=== PATIENT | male | born 1985 | race Hispanic/Latino ===

== ENCOUNTER 2019-10-04 21:18 | Emergency (ER) | payer SELFPAY ==
[2019-10-04 23:45] LABS: Absolute Lymphocytes (CBC) 1.6 K/uL (0.7-4.9); Basophils % 0.6 % (0-1.3); Hematocrit 35.4 % (39.6-49.0); Lymphocytes % 19.3 % (15.3-44.8); MPV 8.1 fL (7.6-11.3); RBC Red Blood Cell Count 3.69 M/uL (4.33-5.43)
[2019-10-05 00:09] LABS: ALT/SGPT 44 U/L (12-78); AST/SGOT 35 U/L (15-37); Albumin 2.8 g/dL (3.4-5.0); Alkaline Phosphatase 97 U/L (45-117); BUN Blood Urea Nitrogen 8 mg/dL (7-18); Bicarbonate 28 mmol/L (21-32); Bilirubin Direct 0.3 mg/dL (0-0.2); Glucose Level 88 mg/dL (74-106); Potassium 3.3 mmol/L (3.5-5.1); Protein, Total 7.1 g/dL (6.4-8.2); Sodium Level 138 mmol/L (136-145)
[2019-10-05 00:10] LABS: Lipase 110 U/L (73-393)
[2019-10-05] MEDS ORDERED: ACETAMINOPHEN 325 MG TABLET ONE (00:37)
[2019-10-05] MEDS ORDERED: NA CHLORIDE 0.9% 1,000 ML ONE ×2 (00:38→02:30)
[2019-10-05 01:30] LABS: Urine Blood NEGATIVE (NEG); Urine Glucose NEGATIVE (NEG); Urine Protein NEGATIVE (NEG); Urine pH 6.5 (5.0-7.0)
[2019-10-05 02:18] LABS: Protime INR 1.84
--- NOTE | 2019-10-05 02:22 | ER ---
Nurse's Notes [facility] Name: Osei Whitehead Age: 34 yrs Sex: Male : 1985 Arrival Date: 10/04/2019 Time: 21:20 Bed 20 Private MD: Diagnosis: Generalized abdominal pain;Portal vein thrombosis-extending into SMV;Fever, unspecified;Vomiting;Hypokalemia Presentation: 10/03 21:47 Chief complaint: Patient states: his sister was diagnosed with TB today pt states he bb has been feeling bad for days with abdominal pain, constipation, vomiting and this morning he woke up with a temperature. Coronavirus screen: Client presents with at least one sign or symptom that may indicate coronavirus-19. Standard/surgical mask placed on the client. Ebola Screen: No symptoms or risks identified at this time. Initial Sepsis Screen: Does the patient meet any 2 criteria? No. Patient's initial sepsis screen is negative. Does the patient have a suspected source of infection? No. Patient's initial sepsis screen is negative. Risk Assessment: Do you want to hurt yourself or someone else? Patient reports no desire to harm self or others. Onset of symptoms was September 2019. 21:47 Method Of Arrival: Ambulatory bb 21:47 Acuity: NEFTALI 3 bb Triage Assessment: 21:51 General: Appears in no apparent distress. Behavior is calm, cooperative. Pain: bb Complains of pain in abdomen Pain currently is 6 out of 10 on a pain scale. GI: Reports lower abdominal pain, constipation, vomiting. Historical: - Allergies: 21:51 No Known Allergies; bb - Home Meds: 21:51 None [Active]; bb - PMHx: 21:51 None; bb - PSHx: 21:51 ankle surgery; bb - Immunization history:: Adult Immunizations up to date. - Social history:: Smoking status: Patient denies any tobacco usage or history of. Patient uses alcohol, street drugs, marijuana, Methamphetamine (Meth). Screenin/29 00:15 Abuse screen: Denies threats or abuse. Denies injuries from another. Nutritional ls4 screening: No deficits noted. Tuberculosis screening: No symptoms or risk factors identified. Fall Risk None identified. Assessment: 00:52 Reassessment: Patient and/or family updated on plan of care and expected duration. Pain cr4 level reassessed. Patient back from CT. The patient was connected to the VS monitor and fluids. No signs of distress. VS taken.. 02:45 General: Appears in no apparent distress. uncomfortable, Behavior is calm, cooperative, vc agitated. Pain: Complains of pain in abdomen. Neuro: Level of Consciousness is awake, alert, obeys commands, Oriented to person, place, time, situation, Appropriate for age. Cardiovascular: Capillary refill < 3 seconds Patient's skin is warm and dry. Respiratory: Airway is patent Respiratory effort is even, unlabored, Respiratory pattern is regular, symmetrical. GI: Abdomen is non-distended. 02:45 Reassessment: Assumed care from RADHA Borden. vc 03:58 Reassessment: [facility] bb 04:31 Reassessment: Patient and/or family updated on plan of care and expected duration. Pain vc level reassessed. EMS at bedside to transport patient to [facility]. Vital Signs: 10/03 21:47 BP 134 / 90; Pulse 110; Resp 16 S; Temp 100.9(O); Pulse Ox 100% on R/A; Weight 93.89 kg bb (M); Height 5 ft. 8 in. (172.72 cm) (R); Pain 6/10; 10/04 01:00 BP 122 / 72; Pulse 87; Resp 18; Temp 100.3; Pulse Ox 97% ; Pain 3/10; cr4 03:57 BP 129 / 78; Pulse 83; Resp 16; Temp 98.9(O); Pulse Ox 97% on R/A; bb 10/03 21:47 Body Mass Index 31.47 (93.89 kg, 172.72 cm) bb ED Course: 10/03 21:20 Patient arrived in ED. cl3 21:51 Triage completed. bb 21:51 Arm band placed on. bb 22:20 Teena Tabares FNP-C is PHCP. kb 22:20 Aly Patel MD is Attending Physician. kb 23:30 Inserted saline lock: 20 gauge in left antecubital area, using aseptic technique. Blood oe collected. 23:50 Erin Love, RADHA is Primary Nurse. ls4 10/04 00:10 Chest Single View XRAY In Process Unspecified. EDMS 00:15 CT Abd/Pelvis - IV Contrast Only Sent. ls4 00:16 No provider procedures requiring assistance completed. ls4 00:45 CT Abd/Pelvis - IV Contrast Only In Process Unspecified. EDMS 02:03 Protime (+inr) Sent. hb1 02:03 Ptt, Activated Sent. hb1 02:40 Inserted saline lock: 18 gauge in right antecubital area, using aseptic technique. jb4 02:45 Bed in low position. Call light in reach. Side rails up X 1. playground monitor on. Pulse vc ox on. NIBP on. 02:45 Inserted saline lock: 18 gauge in right forearm, using aseptic technique. jb4 04:35 Patient transferred, IV remains in place. vc 04:48 PHCP role handed off by Teena Tabares FNP-C bb 04:48 Primary Nurse role handed off by Erin Love RN bb Administered Medications: 00:52 Drug: Ibuprofen 600 mg Route: PO; cr4 04:37 Follow up: Response: No adverse reaction vc 00:52 Drug: NS 0.9% 1000 ml Route: IV; Rate: 1000 ml; Site: left antecubital; cr4 02:45 Follow up: IV Status: Completed infusion; IV Intake: 700ml vc 02:50 Drug: Pepcid 20 mg Route: IVP; Site: right antecubital; vc 04:37 Follow up: Response: No adverse reaction vc 02:55 Drug: Cipro 400 mg Volume: 200 ml; Route: IVPB; Infused Over: 60 mins; Site: right vc forearm; 04:37 Follow up: IV Status: Completed infusion; IV Intake: 200ml vc 02:55 Drug: Flagyl 500 mg Volume: 100 ml; Route: IVPB; Rate: 200 ml/hr; Infused Over: 30 vc mins; Site: right forearm; 03:55 Follow up: IV Status: Completed infusion; IV Intake: 100ml vc 02:55 Drug: Heparin ([place] Drip) 12 units/kg/hr - (HEParin 60516 units, D5W 500 ml) vc {Co-Signature: mayda (Osei Polo RN).} Route: IV; Rate: calculated rate; Site: right antecubital; 04:36 Follow up: IV Status: Infusion continued upon transfer vc 02:55 Drug: Potassium Chloride 20 mEq Route: IV; Rate: per protocol; Site: left antecubital; vc 04:36 Follow up: IV Status: Completed infusion; IV Intake: 100ml vc 02:56 Drug: Heparin (MO-Bolus No thrombolytic) - HEParin 60 units/kg {Co-Signature: mayda lopez (Osei Polo RN).} Route: IVP; Site: right antecubital; 04:36 Follow up: Response: No adverse reaction vc 03:09 Drug: NS 0.9% 1000 ml Route: IV; Rate: 1 bolus; Site: left antecubital; vc 04:37 Follow up: IV Status: Completed infusion; IV Intake: 1000ml vc Intake: 02:45 IV: 700ml; Total: 700ml. vc 03:55 IV: 100ml; Total: 800ml. vc 04:36 IV: 100ml; Total: 900ml. vc 04:37 IV: 200ml; Total: 1100ml. vc 04:37 IV: 1000ml; Total: 2100ml. vc Outcome: 02:22 ER care complete, transfer ordered by . [facility] 03:58 Transferred by ground EMS to [facility], Transfer form completed. bb X-rays sent w/ patient. Note: report given to Malick Hassan RN for [facility] 03:58 Instructed on the need for transfer. 04:34 Condition: stable vc 04:44 Patient left the ED. vc 04:51 Patient left the ED. bb Signatures: Dispatcher [employer] EDMS Teena Tabares, TAKER OFF BRAKER MACHINE-C TAKER OFF BRAKER MACHINE-Aly Luz MD MD cha Ballard, Brenda RN RN Suha Crespo, RN RN Osei Moeller, RN RN jb4 [facility] hb1 Erin Love RN RN ls4 Modesta Bowden cl3 Hyun Lamb RN RN vc Osei [email or web address] Corrections: (The following items were deleted from the chart) 04:33 04:24 General: Appears in no apparent distress. uncomfortable, Behavior is calm, vc cooperative, agitated, vc 04:33 04:24 Pain: Complains of pain in abdomen vc vc 04:33 04:24 Neuro: Level of Consciousness is awake, alert, obeys commands, Oriented to vc person, place, time, situation, Appropriate for age vc 04:33 04:24 Cardiovascular: Capillary refill < 3 seconds Patient's skin is warm and dry. vc vc 04:24 Respiratory: Airway is patent Respiratory effort is even, unlabored, Respiratory vc pattern is regular, symmetrical, vc 04:24 GI: Abdomen is non-distended, vc vc
--- NOTE | 2019-10-05 02:22 | EDPHYS ---
Physician Documentation [facility] Name: Osei Whitehead Age: 34 yrs Sex: Male : 1985 Arrival Date: 10/04/2019 Time: 21:20 Bed 20 Private MD: ED Physician Aly Patel HPI: 10/03 23:18 This 34 yrs old Male presents to ER via Ambulatory with complaints of Vomiting.kb 23:18 The patient presents to the emergency department with nausea, vomiting, abdominal pain. kb Onset: The symptoms/episode began/occurred 1 week(s) ago. Possible causes: sick contacts. The symptoms are aggravated by nothing. The symptoms are alleviated by nothing. Associated signs and symptoms: Pertinent positives: abdominal pain, fever, nausea, vomiting. Severity of symptoms: At their worst the symptoms were moderate in the emergency department the symptoms are unchanged. The patient has not experienced similar symptoms in the past. The patient has not recently seen a physician. 23:25 Pt reports fatigue, malaise, fever, chills, abd pain, nausea and vomiting for a week. kb States his father recently and they were told he had active TB. States his sister had similar symptoms that he has so she went to her dr, they did a TB skin test and it was positive. . Historical: - Allergies: 21:51 No Known Allergies; bb - Home Meds: 21:51 None [Active]; bb - PMHx: 21:51 None; bb - PSHx: 21:51 ankle surgery; bb - Immunization history:: Adult Immunizations up to date. - Social history:: Smoking status: Patient denies any tobacco usage or history of. Patient uses alcohol, street drugs, marijuana, Methamphetamine (Meth). ROS: 23:18 ENT: Negative for injury, pain, and discharge, Neck: Negative for injury, pain, and kb swelling, Cardiovascular: Negative for chest pain, palpitations, and edema, Respiratory: Negative for shortness of breath, cough, wheezing, and pleuritic chest pain, Back: Negative for injury and pain, MS/Extremity: Negative for injury and deformity, Skin: Negative for injury, rash, and discoloration, Neuro: Negative for headache, weakness, numbness, tingling, and seizure. 23:18 Constitutional: Positive for body aches, chills, fatigue, fever, malaise. 23:18 Abdomen/GI: Positive for abdominal pain, nausea and vomiting, Negative for diarrhea, constipation. Exam: 23:18 Constitutional: This is a well developed, well nourished patient who is awake, alert, kb and in no acute distress. Head/Face: Normocephalic, atraumatic. Neck: Trachea midline, no thyromegaly or masses palpated, and no cervical lymphadenopathy. Supple, full range of motion without nuchal rigidity, or vertebral point tenderness. No Meningismus. Chest/axilla: Normal chest wall appearance and motion. Nontender with no deformity. No lesions are appreciated. Cardiovascular: Regular rate and rhythm with a normal S1 and S2. No gallops, murmurs, or rubs. Normal PMI, no JVD. No pulse deficits. Respiratory: Lungs have equal breath sounds bilaterally, clear to auscultation and percussion. No rales, rhonchi or wheezes noted. No increased work of breathing, no retractions or nasal flaring. Back: No spinal tenderness. No costovertebral tenderness. Full range of motion. Skin: Warm, dry with normal turgor. Normal color with no rashes, no lesions, and no evidence of cellulitis. MS/ Extremity: Pulses equal, no cyanosis. Neurovascular intact. Full, normal range of motion. Neuro: Awake and alert, GCS 15, oriented to person, place, time, and situation. Cranial nerves II-XII grossly intact. Motor strength 5/5 in all extremities. Sensory grossly intact. Cerebellar exam normal. Normal gait. 23:18 Abdomen/GI: Inspection: abdomen appears normal, Bowel sounds: normal, in all quadrants, Palpation: soft, in all quadrants, moderate abdominal tenderness, in all quadrants. 10/04 04:48 ECG was reviewed by the Attending Physician. [facility] Vital Signs: 10/03 21:47 BP 134 / 90; Pulse 110; Resp 16 S; Temp 100.9(O); Pulse Ox 100% on R/A; Weight 93.89 kg bb (M); Height 5 ft. 8 in. (172.72 cm) (R); Pain 6/10; 10/04 01:00 BP 122 / 72; Pulse 87; Resp 18; Temp 100.3; Pulse Ox 97% ; Pain 3/10; cr4 03:57 BP 129 / 78; Pulse 83; Resp 16; Temp 98.9(O); Pulse Ox 97% on R/A; bb 10/03 21:47 Body Mass Index 31.47 (93.89 kg, 172.72 cm) bb MDM: 10/03 22:20 Patient medically screened. kb 23:16 Data reviewed: vital signs, nurses notes. Data interpreted: Pulse oximetry: on room air kb is 100 %. Interpretation: normal. 10/04 01:37 Transition of care: After a detail discussion of the patient's case, care is kb transferred to Aly Patel MD. 02:17 Differential diagnosis: Nonspecific abd pain, gastritis, cholecystitis, pancreatitis, quentin diverticulitis, viral gastroenteritis, gastroenteritis. Test interpretation: by ED physician or midlevel provider: ECG, plain radiologic studies. Counseling: I had a detailed discussion with the patient and/or guardian regarding: the historical points, exam findings, and any diagnostic results supporting the discharge/admit diagnosis, lab results, radiology results, the need to transfer to another facility, for higher level of care, [facility] does not immediately have the required specialist. Medication response: Zofran markedly relieved the patient's nausea. Other consultation: call to [facility] md. 02:19 Response to treatment: the patient's symptoms have mildly improved after treatment. ED quentin course: plan to transfer to [facility]. 10/03 22:57 Order name: Basic Metabolic Panel; Complete Time: 00:11 kb 10/03 22:57 Order name: CBC with Diff; Complete Time: 23:52 kb 10/03 22:57 Order name: Hepatic Function; Complete Time: 00:11 kb 10/03 22:57 Order name: Lipase; Complete Time: 00:11 kb 10/04 00:20 Order name: CREATININE WHOLE BLOOD; Complete Time: 00:21 EDMS 10/04 01:18 Order name: Urine Dipstick--Ancillary (enter results); Complete Time: 01:35 tt3 10/03 22:57 Order name: Chest Single View XRAY kb 10/03 22:57 Order name: CT Abd/Pelvis - IV Contrast Only kb 10/04 01:36 Order name: Protime (+inr); Complete Time: 02:29 kb 10/04 01:36 Order name: Ptt, Activated; Complete Time: 02:29 kb 10/03 22:57 Order name: IV Saline Lock; Complete Time: 00:12 kb 10/03 22:57 Order name: Labs collected and sent; Complete Time: 00:12 kb 10/04 02:13 Order name: EKG; Complete Time: 02:13 quentin 10/04 02:13 Order name: EKG - Nurse/Tech; Complete Time: 04:00 quentin 10/04 02:14 Order name: IV Saline Lock - Large Bore; Complete Time: 02:56 [facility] EC:48 Rate is 65 beats/min. Rhythm is regular. QRS [place] is Normal. [place] interval is normal. QRS quentin interval is normal. QT interval is normal. No Q waves. T waves are Normal. No ST changes noted. Clinical impression: Normal ECG and No evidence of ischemia. Interpreted by me. Reviewed by me. Administered Medications: 00:52 Drug: Ibuprofen 600 mg Route: PO; cr4 04:37 Follow up: Response: No adverse reaction vc 00:52 Drug: NS 0.9% 1000 ml Route: IV; Rate: 1000 ml; Site: left antecubital; cr4 02:45 Follow up: IV Status: Completed infusion; IV Intake: 700ml vc 02:50 Drug: Pepcid 20 mg Route: IVP; Site: right antecubital; vc 04:37 Follow up: Response: No adverse reaction vc 02:55 Drug: Cipro 400 mg Volume: 200 ml; Route: IVPB; Infused Over: 60 mins; Site: right vc forearm; 04:37 Follow up: IV Status: Completed infusion; IV Intake: 200ml vc 02:55 Drug: Flagyl 500 mg Volume: 100 ml; Route: IVPB; Rate: 200 ml/hr; Infused Over: 30 vc mins; Site: right forearm; 03:55 Follow up: IV Status: Completed infusion; IV Intake: 100ml vc 02:55 Drug: Heparin ([place] Drip) 12 units/kg/hr - (HEParin 87339 units, D5W 500 ml) vc {Co-Signature: jb4 (Osei Polo RN).} Route: IV; Rate: calculated rate; Site: right antecubital; 04:36 Follow up: IV Status: Infusion continued upon transfer vc 02:55 Drug: Potassium Chloride 20 mEq Route: IV; Rate: per protocol; Site: left antecubital; vc 04:36 Follow up: IV Status: Completed infusion; IV Intake: 100ml vc 02:56 Drug: Heparin (SD-Bolus No thrombolytic) - HEParin 60 units/kg {Co-Signature: jb4 (Osei Polo RN).} Route: IVP; Site: right antecubital; 04:36 Follow up: Response: No adverse reaction vc 03:09 Drug: NS 0.9% 1000 ml Route: IV; Rate: 1 bolus; Site: left antecubital; vc 04:37 Follow up: IV Status: Completed infusion; IV Intake: 1000ml vc Disposition: 02:20 Co-signature as Attending Physician, Aly Patel MD I agree with the assessment and quentin plan of care. Disposition: 10/05/19 02:22 Transfer ordered to [facility]. Diagnosis are Generalized abdominal pain, Portal vein thrombosis - extending into SMV, Fever, unspecified, Vomiting, Hypokalemia. - Reason for transfer: Higher level of care. - Accepting physician is [facility]. - Condition is Fair. - Problem is new. - Symptoms have improved. Signatures: Dispatcher [employer] EDTeena Munguia, MERCHANDISE PRESENTATION ASSOCIATE-C MERCHANDISE PRESENTATION ASSOCIATE-Aly Luz MD MD cha Ballard, Brenda, RN RN bb Suha Groves, RN RN cr4 Hyun Lamb RN RN vc James Bryson RN jb4 Corrections: (The following items were deleted from the chart) 04:44 02:22 10/05/2019 02:22 Transfer ordered to [facility]. vc Diagnosis is Generalized abdominal pain; Portal vein thrombosis - extending into SMV; Fever, unspecified; Vomiting; Hypokalemia. Reason for transfer: Higher level of care. Accepting physician is [facility]. Condition is Fair. Problem is new. Symptoms have improved. quentin 04:51 04:44 10/05/2019 02:22 Transfer ordered to [facility]. bb Diagnosis is Generalized abdominal pain; Portal vein thrombosis - extending into SMV; Fever, unspecified; Vomiting; Hypokalemia. Reason for transfer: Higher level of care. Accepting physician is [facility]. Condition is Fair. Problem is new. Symptoms have improved. vc
[2019-10-05] MEDS ORDERED: HEPARIN 5000 UNIT/ML 1 ML VIAL ONE (02:30)
[2019-10-05] MEDS ORDERED: HEPARIN/D5W 25,000 UNIT/500 ML BAG IV ONE (02:31)
[2019-10-05] MEDS ORDERED: METRONIDAZOLE 500mg IVPB 500 MG/100 ML BAG IV ONE (02:31)
[2019-10-05] MEDS ORDERED: FAMOTIDINE 20 MG/2 ML VIAL IV ONE (02:31)
[2019-10-05] MEDS ORDERED: CIPROFLOXACIN 400mg IV 400 MG/200 ML BAG IV ONE (02:31)
[2019-10-05] MEDS ORDERED: KCL 20 MEQ/100 mL IVPB 20 MEQ/100 ML BAG IV ONE (02:31)
--- NOTE | 2019-10-05 05:45 | EKG ---
Test Date: 2019-10-05 Test Time: 04:02:06 Diesel Engine Ii Pipe Fitter: DAMION MEASUREMENT RESULTS: Intervals: Rate: 78 LA: 154 QRSD: 88 QT: 390 QTc: 444 Bruce: P: 5 LA: 154 QRS: 31 T: 27 INTERPRETIVE STATEMENTS: Normal sinus rhythm Normal ECG No previous ECG available for comparison Electronically Signed On 10-05-19 05:45:02 CDT by Wicho Anthony
--- NOTE | 2019-10-05 09:24 | RAD REPORT ---
EXAM DESCRIPTION: RAD - Chest Single View - 10/05/2019 12:09 am CLINICAL HISTORY: MALAISE, additional history from family member indicates recent TB diagnosis COMPARISON: None TECHNIQUE: AP portable chest image was obtained 10/05/2019 12:09 am . FINDINGS: Lung volumes are low. Overlying soft tissues accentuate chest findings. No focal mass or consolidation. No hilar mass or lymphadenopathy. No portable chest film findings for acute or chronic TB infection. Heart and vasculature are normal. No measurable pleural effusion and no pneumothorax. No acute bony abnormality seen. No acute aortic findings suspected. IMPRESSION: No acute cardiopulmonary process.
--- NOTE | 2019-10-05 15:09 | RAD REPORT ---
EXAM DESCRIPTION: CT - Abdomen Pelvis W Contrast - 10/05/2019 5:03 am ADDENDUM #1 THIS REPORT CONTAINS FINDINGS THAT MAY BE CRITICAL TO PATIENT CARE: The findings were verbally discussed via telephone conference with Dr. Aly Patel by Dr. Ray Almeida on 1:29 AM CDT .The results were acknowledged and understood. In speaking with the clinician, discussed suggestion of collateral vessels surrounding the portal vei n. The overall process may be secondary to acute on chronic thrombus and occlusion of the portal vein extending into the superior mesenteric vein and tributaries. Electronically signed by: Suzanna Almeida MD 10/05/2019 2:16 AM CDT End of Addendum EXAM DESCRIPTION: CT Abdomen and Pelvis With Intravenous Contrast CLINICAL HISTORY: The patient is 34 years old and is Male; ABD PAIN TECHNIQUE: Axial computed tomography images of the abdomen and pelvis with intravenous contrast. S agittal and coronal reformatted images were created and reviewed. This CT exam was performed using one or more of the following dose reduction techniques: automated exposure control, adjustment of t he mA and/or kV according to patient size, and/or use of iterative reconstruction technique. COMPARISON: No relevant prior studies available. FINDINGS: LUNG BASES: Unremarkable. No mass. No consolidation. ABDOMEN: LIVER: The liver is enlarged and diffusely fatty. GALLBLADDER AND BILE DUCTS: No calcified stones. No ductal dilation. PANCREAS: No ductal dilation. No mass. SPLEEN: Unremarkable. ADRENALS: Unremarkable. No mass. KIDNEYS AND URETERS: Unremarkable. The kidneys enhance symmetrically. No obstructing renal or ur eteral calculus is seen. No hydronephrosis or hydroureter. No perinephric fluid or stranding. STOMACH AND BOWEL: The stomach is minimally fluid filled. The small bowel is relatively normal i n caliber. Stool is present throughout the colon. There is no mucosal thickening or evidence of bowel obstruction. PELVIS: APPENDIX: The appendix is normal in caliber without surrounding inflammation. BLADDER: Unremarkable. No mass. REPRODUCTIVE: Unremarkable as visualized. ABDOMEN and PELVIS: INTRAPERITONEAL SPACE: Edema and inflammatory stranding within the central mesentery is present. No free air. No significant fluid collection. BONES/JOINTS: No acute fracture. SOFT TISSUES: There are small bilateral fat containing inguinal hernias. VASCULATURE: Enlargement of the portal vein and superior mesenteric vein is noted. Significant i nflammatory stranding surrounding these vessels extending into the mesenteric root areas is also pres ent. The portal vein and superior mesenteric vein are diffusely low in attenuation. The remainder of the vessels are normal in appearance. LYMPH NODES: Unremarkable. No enlarged lymph nodes. IMPRESSION: Findings suggest extensive thrombus of the portal vein, superior mesenteric vein and ext ending into the mesenteric tributaries. Surrounding edema and stranding within the mesentery is also present. Electronically signed by: Suzanna Almeida MD 10/05/2019 1:24 AM CDT Due to temporary technical issues with the PACS/Fluency reporting system, reports are being signed by the in house radiologist without review as a courtesy to ensure prompt reporting. The interpreting r adiologist is fully responsible for the content of the report.
[2019-10-08 20:26] VITALS: O2SAT 97
[2019-10-08 20:32] VITALS: BP 129/78; TEMP 98.9
== END 2019-10-05 04:51 | disposition short-term general hospital (02) ==
LOC: ER 21:18
DX: I81 Portal vein thrombosis (principal); E87.6 Hypokalemia; R50.9 Fever, unspecified; R10.84 Generalized abdominal pain
CPT/HCPCS: 36415; 71045; 74177; 80048; 80076; 81003; 82565; 83690; 85025; 85610; 85730; 93005; 99285; J0744; J1644; J3480; J7030; Q9967

== ENCOUNTER 2019-10-18 00:47 | Emergency (ER) | payer SELFPAY ==
--- OUTSIDE RECORDS SUMMARY | 2019-10-18 00:51 | XMS REPORT | Clinical Summary ---
:1985 Author Organization [facility] Address [address] [place] [address] Care Team Providers Name Role Phone Unavailable Primary Care Provider Unavailable Allergies No Known Allergies Medications Medication Sig Dispensed Refills Start Date End Date Status pantoprazole Take 1 tablet (40 90 tablet 0 10/10/2019 Active (PROTONIX) 40 MG mg total) by mouth tablet daily. rivaroxaban (XARELTO) Take 1 tablet (20 69 tablet 0 10/10/2019 Active 20 mg Tab tablet mg total) by mouth daily with dinner. rivaroxaban (XARELTO) Take 1 tablet (15 42 tablet 0 10/10/2019 Active 15 mg Tab tablet mg total) by mouth 2 (two) times daily with breakfast and dinner. Active Problems Problem Noted Date Portal vein thrombosis 10/05/2019 Encounters Date Type Specialty Care Team Description 10/17/2019 Abstract Hepatology Meeta Boggs MA 10/15/2019 Video - Cardiology Ladonna Messer, Portal vein Telemedicine [employer]OVERINGS thrombosis (Adry dejah Dx) 10/11/2019 Telephone Cardiology Ladonna Messer, Appointment [employer] 10/08/2019 Anesthesia Event Gastroenterology Anjum Mckinley MD 10/08/2019 Surgery Gastroenterology ROSEMARIE Alberto Sherrellmelody Swan, ENDOSCOPY,BIOPS Y MD 10/05/2019 Hospital Encounter General Internal [facility] [place] al vein thrombosis (Primary Dx); - Medicine Rayshawn salazar, Methamphetamine use (HCC); 10/10/2019 Alcohol abuse; Sunil, Fever in adult; Nishi Conde, Hematemesis wit h nausea; Dark stools; , Anemia, unspeci fied type; MD Will Superior mesent horace vein thrombosis (HCC); Liver mass; Hemangioma, uns pecified site after 10/17/2018 Family History Medical History Relation Name Comments Bipolar disorder Father hepatitis c Cirrhosis Father hepatitis c Drug abuse Father hepatitis c Hepatitis Father hepatitis c Hypertension Father hepatitis c Tuberculosis Father hepatitis c CAROL disease Mother Hyperlipidemia Mother Hypertension Mother Relation Name Status Comments Father hepatitis c Mother Social History Tobacco Use Types Packs/Day Years Used Date Unknown If Ever Smoked Smokeless Tobacco: Never Used Tobacco Cessation: Counseling Given: Yes Alcohol Use Drinks/Week oz/Week Comments Yes Alcohol Habits Answer Date Recorded How often do you have a drink containing alcohol? 2-3 times a week 10/05/2019 How many drinks containing alcohol do you have on a 3 or 4 10/05/2019 typical day when you are drinking? How often do you have six or more drinks on one Weekly 10/05/2019 occasion? Sex Assigned at Date Recorded Not on file Job Start Date Occupation Industry Not on file Not on file Not on file Travel History Travel Start Travel End No recent travel history available. Last Filed Vital Signs Vital Sign Reading Time Taken Blood Pressure 119/64 10/10/2019 10:37 AM CDT Pulse 64 10/10/2019 10:37 AM CDT Temperature 36.3 C (97.4 F) 10/10/2019 10:37 AM CDT Respiratory Rate 18 10/10/2019 10:37 AM CDT Oxygen Saturation 100% 10/10/2019 10:37 AM CDT Inhaled Oxygen Concentration - - Weight 93 kg (205 lb 0.4 oz) 10/15/2019 5:35 P M CDT Height 172.7 cm (5' 8") 10/15/2019 5:35 PM CDT Body Mass Index 31.17 10/15/2019 5:35 PM CDT Plan of Treatment Health Maintenance Due Date Last Done Comments PNEUMOCOCCAL VACCINE 2-64 YEARS AT RISK (1 of 1 - 05/21/1991 PPSV23) LIPID PANEL 2005 INFLUENZA VACCINE (#1) 2019 Procedures Procedure Name Priority Date/Time Associated Diagnosis Comme nts REPORT OF PROCEDURE - 10/11/2019 ENDOSCOPY SCAN 2:30 PM CDT RHYTHM STRIP - SCAN 10/11/2019 2:30 PM CDT CBC W/PLT COUNT & AUTO Routine 10/10/2019 Resul ts for DIFFERENTIAL 4:56 AM CDT this procedure are in the results section. APTT Routine 10/10/2019 Results for 4:56 AM CDT this procedure are in the results section. CBC W/PLT COUNT & AUTO Routine 10/10/2019 Resul ts for DIFFERENTIAL 4:56 AM CDT this procedure are in the results section. APTT Routine 10/09/2019 Results for 9:58 PM CDT this procedure are in the results section. TRANSFUSION SERVICE 10/09/2019 REPORT - SCAN 6:02 PM CDT APTT Routine 10/09/2019 Results for 3:01 PM CDT this procedure are in the results section. CT ABDOMEN WITH & Routine 10/09/2019 Results fo r WITHOUT IV CONTRAST 10:28 AM CDT this pro cedure are in the results section. CBC W/PLT COUNT & AUTO Routine 10/09/2019 Resul ts for DIFFERENTIAL 6:21 AM CDT this procedure are in the results section. APTT Routine 10/09/2019 Results for 6:21 AM CDT this procedure are in the results section. BASIC METABOLIC PANEL Routine 10/09/2019 Result s for (7) 6:21 AM CDT this procedure are in the results section. CBC W/PLT COUNT & AUTO Routine 10/09/2019 Resul ts for DIFFERENTIAL 6:21 AM CDT this procedure are in the results section. APTT Routine 10/09/2019 Results for 1:06 AM CDT this procedure are in the results section. APTT Routine 10/08/2019 Results for 5:49 PM CDT this procedure are in the results section. CARBOHYDRATE ANTIGEN Routine 10/08/2019 Results for 19-9 (CA 19-9) 5:49 PM CDT this procedur e are in the results section. ALPHA FETOPROTEIN Routine 10/08/2019 Results fo r (AFP), TUMOR MARKER 5:49 PM CDT this pro cedure are in the results section. CARCINOEMBRYONIC Routine 10/08/2019 Results for ANTIGEN (CEA) 5:49 PM CDT this procedure are in the results section. REPORT OF PROCEDURE - 10/08/2019 ENDOSCOPY URL 12:07 PM CDT TISSUE EXAM AP Routine 10/08/2019 Results for 11:57 AM CDT this procedure are in the results section. UPPER ENDOSCOPY,BIOPSY 10/08/2019 Gastrointestinal 9:00 AM CDT hemorrhage, unspecified gastrointestinal hemorrhage type ABORH, MANUAL STAT 10/08/2019 Results for 4:36 AM CDT this procedure are in the results section. CBC W/PLT COUNT & AUTO Routine 10/08/2019 Resul ts for DIFFERENTIAL 3:53 AM CDT this procedure are in the results section. TYPE AND SCREEN, Routine 10/08/2019 Results for AUTOMATED 3:53 AM CDT this procedure are in the results section. MITOCHONDRIAL AB TITER Routine 10/08/2019 Resul ts for 3:53 AM CDT this procedure are in the results section. MITOCHONDRIAL AB Routine 10/08/2019 Results for SCREEN 3:53 AM CDT this procedure are in the results section. PROTHROMBIN TIME/INR Routine 10/08/2019 Results for 3:53 AM CDT this procedure are in the results section. ANTI-MITOCHONDRIAL AB, Routine 10/08/2019 REFLEX TO TITER 3:53 AM CDT ACTIN (SMOOTH MUSCLE) Routine 10/08/2019 Result s for ANTIBODY, IGG 3:53 AM CDT this procedure are in the results section. ANTI-NUCLEAR ANTIBODY Routine 10/08/2019 Result s for (HERON) 3:53 AM CDT this procedure are in the results section. [id number]\\, Routine 10/08/2019 Result s for SERUM 3:53 AM CDT this procedure are in the results section. CERULOPLASMIN Routine 10/08/2019 Results for 3:53 AM CDT this procedure are in the results section. T SPOT TB Routine 10/08/2019 Results for 3:53 AM CDT this procedure are in the results section. BASIC METABOLIC PANEL Routine 10/08/2019 Result s for (7) 3:53 AM CDT this procedure are in the results section. CBC W/PLT COUNT & AUTO Routine 10/08/2019 Resul ts for DIFFERENTIAL 3:53 AM CDT this procedure are in the results section. APTT Routine 10/07/2019 Results for 8:16 PM CDT this procedure are in the results section. LIPASE Routine 10/07/2019 Results for 8:16 PM CDT this procedure are in the results section. APTT Routine 10/07/2019 Results for 4:37 PM CDT this procedure are in the results section. LACTIC ACID, VENOUS Routine 10/07/2019 Results for 4:37 PM CDT this procedure are in the results section. IRON, TIBC, % SAT. Routine 10/07/2019 Results f or (WITHOUT FERRITIN) 4:37 PM CDT this proc edure are in the results section. CT ABDOMEN/PELVIS WITH HYUN 10/07/2019 Resul ts for IV CONTRAST 1:00 PM CDT this procedure are in the results section. APTT Routine 10/07/2019 Results for 11:10 AM CDT this procedure are in the results section. CBC W/PLT COUNT & AUTO Routine 10/07/2019 Resul ts for DIFFERENTIAL 1:52 AM CDT this procedure are in the results section. BASIC METABOLIC PANEL Routine 10/07/2019 Result s for (7) 1:52 AM CDT this procedure are in the results section. CBC W/PLT COUNT & AUTO Routine 10/07/2019 Resul ts for DIFFERENTIAL 1:52 AM CDT this procedure are in the results section. APTT Routine 10/07/2019 Results for 1:51 AM CDT this procedure are in the results section. APTT Routine 10/06/2019 Results for 6:32 PM CDT this procedure are in the results section. APTT Routine 10/06/2019 Results for 12:31 PM CDT this procedure are in the results section. FERRITIN Add-On 10/06/2019 Results for 5:40 AM CDT this procedure are in the results section. APTT Routine 10/06/2019 Results for 5:40 AM CDT this procedure are in the results section. HEPATITIS A ANTIBODY, Routine 10/06/2019 Result s for IGG 5:40 AM CDT this procedure are in the results section. HEPATITIS B SURFACE Routine 10/06/2019 Results for ANTIBODY 5:40 AM CDT this procedure are in the results section. CARDIOLIPIN Routine 10/06/2019 Results for ANTIBODIES, IGG AND 5:40 AM CDT this pro cedure IGM are in the results section. BETA 2 MICROGLOBULIN Routine 10/06/2019 Results for 5:40 AM CDT this procedure are in the results section. HEPATITIS B CORE HYUN 10/06/2019 Results for ANTIBODY, TOTAL 5:40 AM CDT this procedu re are in the results section. JAK2, EXON 12 MUTATION AP Routine 10/05/2019 Resul ts for ANALYSIS 9:52 PM CDT this procedure are in the results section. APTT Routine 10/05/2019 Results for 9:50 PM CDT this procedure are in the results section. SARS-COV2/RT-PCR ([facility] Routine 10/05/2019 Resul ts for & REF LABS) 11:59 AM CDT this procedure are in the results section. URINALYSIS W/ REFLEX Routine 10/05/2019 Results for URINE CULTURE 11:49 AM CDT this procedure are in the results section. RAPID DRUG SCREEN, Routine 10/05/2019 Results f or URINE 11:49 AM CDT this procedure are in the results section. HIV-1 ANTIGEN WITH Routine 10/05/2019 Results f or HIV-1/2 ANTIBODY 10:32 AM CDT this proced ure are in the results section. HEPATITIS PANEL, ACUTE Routine 10/05/2019 Resul ts for 10:32 AM CDT this procedure are in the results section. APTT Routine 10/05/2019 Results for 10:32 AM CDT this procedure are in the results section. BLOOD CULTURE Routine 10/05/2019 Results for 10:32 AM CDT this procedure are in the results section. BLOOD CULTURE Routine 10/05/2019 Results for 10:31 AM CDT this procedure are in the results section. XR CHEST 1 VIEW Routine 10/05/2019 Results for PORTABLE/BEDSIDE 9:41 AM CDT this proced ure are in the results section. CBC W/PLT COUNT & AUTO Routine 10/05/2019 Resul ts for DIFFERENTIAL 8:09 AM CDT this procedure are in the results section. CBC W/PLT COUNT & AUTO Routine 10/05/2019 Resul ts for DIFFERENTIAL 8:09 AM CDT this procedure are in the results section. COMPREHENSIVE Routine 10/05/2019 Results for METABOLIC PANEL 8:08 AM CDT this procedu re are in the results section. PROTHROMBIN TIME/INR Routine 10/05/2019 Results for 8:08 AM CDT this procedure are in the results section. APTT Routine 10/05/2019 Results for 8:08 AM CDT this procedure are in the results section. after 10/17/2018 Results EKG-SCANNED (10/11/2019 2:30 PM CDT) Narrative Performed At This result has an attachment that is no t available. RHYTHM STRIP - SCAN (10/11/2019 2:30 PM CDT) Narrative Performed At This result has an attachment that is no t available. CBC with platelet count + automated diff (10/10/2019 4:56 AM CDT)Only the most recent of5 resultswithin the time period is included. WBC 7.5 3.5 - 10.5 K/L [facility] RBC 3.87 (L) 4.63 - 6.08 M/L [facility] Hemoglobin 12.2 (L) 13.7 - 17.5 GM/DL [facility] Hematocrit 37.9 (L) 40.1 - 51.0 % [facility] MCV 97.9 (H) 79.0 - 92.2 fL [facility] MCH 31.5 25.7 - 32.2 pg [facility] MCHC 32.2 (L) 32.3 - 36.5 GM/DL [facility] RDW 13.2 11.6 - 14.4 % [facility] Platelets 365 150 - 450 K/CU MM [facility] MPV 9.6 9.4 - 12.4 fL [facility] nRBC 0 0 - 0 /100 WBC [facility] % Neutros 53 % [facility] % Lymphs 33 % [facility] % Monos 11 % [facility] % Eos 4 % [facility] % Baso 0 % [facility] # Neutros 3.95 1.78 - 5.38 K/L [facility] # Lymphs 2.45 1.32 - 3.57 K/L [facility] # Monos 0.79 0.30 - 0.82 K/L [facility] # Eos 0.28 0.04 - 0.54 K/L [facility] # Baso 0.03 0.01 - 0.08 K/L [facility] Immature Granulocytes-Relative 0 0 - 1 % C [facility] Specimen Blood Performing Organization Address City/State/Zipcode Phone Number [facility] [address] [place] [address] CENTER aPTT (10/10/2019 4:56 AM CDT)Only the most recent of16 resultswithin the time period is included. PTT 78.6 (H) 22.5 - 36.0 seconds [facility] Specimen Blood Performing Organization Address City/State/Zipcode Phone Number [facility] [address] [place] [address] CENTER TRANSFUSION SERVICE REPORT - SCAN (10/09/2019 6:02 PM CDT) Narrative Performed At This result has an attachment that is no t available. CT abdomen without & with IV contrast (10/09/2019 10:28 AM CDT) Specimen Narrative Performed At FINAL REPORT [facility] CT of the abdomen, with and without cont rast Clinical History:Unlisted Reason for Exam liver mass - triple phase liver protocol Technique: CT of the abdomen is performe d before and after intravenous contrast administration. This exam was performed according to our departmental dose optim ization program which includes automated exposure control, adj ustment of the mA and/or kV according to patient's size and/or use o f iterative reconstructive technique. Comparison Film:October 07, 2019 Discussion: Visualized lower thorax is unremarkable. Liver is heterogeneously fatty. In segme nt 7, there is a 2.5 cm lesion that demonstrates peripheral nodu lar enhancement, and retention of contrast in the delayed pha se, most compatible with a hemangioma. Another 8 mm hemangioma is s een in segment 8 There is thrombosis of the portal vein, as well a s the splenic vein and SMV. Cavernous transformation is noted. No bi liary ductal dilatation, gallbladder is normal. 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 Spleen, pancreas, adrenal glands are nor mal. Kidneys demonstrate no hydronephrosis, r adiopaque stone, or mass. No evidence of bowel obstruction. No asc ites or adenopathy. No suspicious bony lesion is identified. Impression: Hepatic steatosis. Two enhancing liver lesions as described , most likely to represent hemangiomas. If more definitive characte rization is desired, MR correlation can be considered. Thrombosis of the portal, splenic and mcduffie perior mesenteric veins. Signed: Monty Elias MD Report Verified Date/Time:10/09/2019 14:25:15 Reading Location: [facility] C013X Ortho Con sult Reading Room Procedure Note Interface, External Ris In - 10/09/2019 2:27 PM CDT FINAL REPORT CT of the abdomen, with and without cont rast Clinical History: Unlisted Reason for E xam liver mass - triple phase liver protocol Technique: CT of the abdomen is performe d before and after intravenous contrast administration. Th is exam was performed according to our departmental dose optim ization program which includes automated exposure control, adj ustment of the mA and/or kV according to patient's size and/or use o f iterative reconstructive technique. Comparison Film: October 07, 2019 Discussion: Visualized lower thorax is unremarkable. Liver is heterogeneously fatty. In segme nt 7, there is a 2.5 cm lesion that demonstrates peripheral nodu lar enhancement, and retention of contrast in the delayed pha se, most compatible with a hemangioma. Another 8 mm hemangioma is s een in segment 8 There is thrombosis of the portal vein, as well a s the splenic vein and SMV. Cavernous transformation is noted. No bi liary ductal dilatation, gallbladder is normal. 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 Spleen, pancreas, adrenal glands are nor mal. Kidneys demonstrate no hydronephrosis, r adiopaque stone, or mass. No evidence of bowel obstruction. No asc ites or adenopathy. No suspicious bony lesion is identified. Impression: Hepatic steatosis. Two enhancing liver lesions as described , most likely to represent hemangiomas. If more definitive characte rization is desired, MR correlation can be considered. Thrombosis of the portal, splenic and mcduffie perior mesenteric veins. Signed: Monty Elias MD Report Verified Date/Time: 10/09/2019 1 4:25:15 Reading Location: [facility] C013X Ortho Con sult Reading Room Performing Organization Address City/State/Zipcode Phone Number [facility] Basic Metabolic Panel (10/09/2019 6:21 AM CDT)Only the most recent of3 results within the time period is included. Sodium 140 136 - 145 meq/L [facility] Potassium 3.5 3.5 - 5.1 meq/L [facility] Chloride 105 98 - 107 meq/L [facility] CO2 27 22 - 29 meq/L [facility] BUN 9 7 - 21 mg/dL [facility] Creatinine 0.79 0.57 - 1.25 mg/dL [facility] Glucose 102 70 - 105 mg/dL [facility] Calcium 8.7 8.4 - 10.2 mg/dL [facility] EGFR 112Comment: ESTIMATED GFR IS mL/min/1.73 sq m [facility] NOT ACCURATE CREATININE [facility] CLEARANCE IN PREDICTING GLOMERULAR FILTRATION RATE. ESTIMATED GFR IS NOT APPLICABLE FOR DIALYSIS PATIENTS. Specimen Blood Narrative Performed At Vice President Of Compliance ID - NTP [facility] Performing Organization Address City/State/Zipcode Phone Number [facility] [address] [place] [address] CENTER Carbohydrate antigen 19-9 (CA 19-9) (10/08/2019 5:49 PM CDT) CA 19-9 10 <34 U/mL [facility] Comment: This test was performed using the Siemens Chemil uminescent method. Values obtained from different assay methods can not be used interchangeably. CA19-9 levels, regardless of value, should not b e interpreted as absolute evidence of the presence or absence of disease. Specimen Blood Narrative Performed At Performing Lab [facility] [employer] [facility] [address] [place] [address] Gisella Parsons MD, PhD, AKASH Performing Organization Address City/State/Zipcode Phone Number [facility] [address] [facility] Alpha fetoprotein (AFP), tumor marker (10/08/2019 5:49 PM CDT) Alpha-Fetoprotein 2.1 <10.0 ng/mL [facility] Specimen Blood Narrative Performed At Vice President Of Compliance ID - BS [facility] Performing Organization Address [facility] Phone Number [address] [address] CENTER Carcinoembryonic Antigen (CEA) (10/08/2019 5:49 PM CDT) CEA, SERUM 2.2 0.0 - 5.0 ng/mL [facility] Specimen Blood Narrative Performed At Vice President Of Compliance ID - BS [facility] Performing Organization Address City/[facility] Phone Number [address] [address] CENTER REPORT OF PROCEDURE - ENDOSCOPY URL (10/08/2019 12:07 PM CDT) Narrative Performed At This result has an attachment that is no t available. Tissue Exam (10/08/2019 11:57 AM CDT) Case Report Surgical Pathology Report Case: [id number] [facility] Authorizing Provider:Sherrell Beck MD Collected: 10/08/2019 11:57 AM [facility] Ordering Location: [address] Received:10/08/2019 01:34 PM Service Pathologist: Dawn Mcgrath MD Specimen:Biopsy, Gas tric, random ADDENDUM This addendum is issued to robby manuel the result of immunohistochemical study for Helicobacter pylori: [facility] - NEGATIVE [facility] ER The interpretation of this c ase included the use of immunohistochemistry or special stains. HELICOBACTER PYLORI Immunohistochemistry technic al testing was performed at [facility], Pathology Laboratory where it was developed and its performance characteristics were determined. It has not be en cleared or approved by [facility] U.S. Food and Drug Administration. The FDA has determined that such clearance or approval is not necessary. The test is used for clinical purposes. It should not be regarde d as investigational or for research. This laboratory is certified under the Clinical Laboratory Improvement Amendments of 1988 (CLIA-88) as qualified to perform high complexity clinical laboratory testing. CPT CODE: 22586 DIAGNOSIS STOMACH, RANDOM, ENDOSCOPIC BIOPSY: [facility] - ANTRAL TYPE GASTRIC MUCOSA WITH REACTIVE GAS TROPATHY [facility] - OXYNTIC MUCOSA WITH MILD CHRONIC INFLAMMATIO N - NO DEFINITE HELICOBACTER PYLORI-LIKE ORGANISMS SEEN ON WARTHIN-STARRY STAIN - NO INTESTINAL METAPLASIA, DYSPLASIA OR MALIG DIMITRI NOTED - IMMUNOHISTOCHEMICAL STAI N FOR HELICOBACTER IS BEING DONE; RESULT WILL BE ISSUED IN AN ADDENDUM REPORT Signing Pathologist Direct Phone Line: CPT Code(s) 52136; [address] [facility] CLINICAL HISTORY Gastrointestinal hemorrhage [facility] SPECIMEN SOURCE stomach [facility] GROSS DESCRIPTION A. Received in formalin labeled [facility] with the patient's name, [facility] accession number and "random gastric biopsy" are two pieces of branch-white to red mucosal tissue each measuring 0.3 x 0.3 x 0.3 cm. The specimen is submitted in toto in cassette A1. NW/pl MICROSCOPIC DESCRIPTION PERFORMED [facility] SPECIAL STUDIES The interpretation of this c ase included the use of immunohistochemistry or special stains. [facility] Control Slides Examined: In -house known positive controls were evaluated along with the test tissue. These control slides run alongside of the patients sample show appropriate staining. Internal posit salbador and negative controls when available are chris baez Immunohistochemistry technic al testing was performed at [facility], Pathology Laboratory where it was developed and its performance characteristics were determined. It has not be en cleared or approved by [facility] U.S. Food and Drug Administration. The FDA has determined that such clearance or approval is not necessary. The test is used for clinical purposes. It should not be regarde d as investigational or for research. This laboratory is certified under the Clinical Laboratory Improvement Amendments of 1988 (CLIA-88) as qualified to perform high complexity clinical laboratory testing. Specimen Tissue Performing Organization Address City/State/Zipcode Phone Number [facility] [address] [place], [place] [id number] CENTER ABORH, manual (10/08/2019 4:36 AM CDT) ABO Grouping O [facility] Rh Factor POS [facility] Specimen Blood Performing Organization Address City/[facility]/Zipcode Phone Number [facility] [address] [place] [address] Mitochondrial Ab Titer (10/08/2019 3:53 AM CDT) Mitochondrial Ab Titer TNP <1:20 [facility] Comment: [facility] Test Not Performed. Screening test Negative or N ot Detected. Titer not performed. Specimen Blood Narrative Performed At Performing Lab [facility] [employer] [address] [address] [employer] [place] [address] Gisella Parsons MD, PhD, AKASH Performing Organization Address [facility] [place] Phone Number [facility] [place], [place] [address] INCORPORATED [address] Glycosan Mitochondrial Ab Screen (10/08/2019 3:53 AM CDT) Anti-Mitochond Abs NEGATIVE NEGATIVE [facility] Comment: INCORPORATED This test was developed and its analytical perfo rmance characteristics have been determined by [facility]. It has not been cleared or approved by FDA. This assay has been validated pursuant to the CLIA regulations and is used for clinical purposes. Specimen Blood Narrative Performed At Performing Lab [facility] [email or web address] EZ [address] [place] [address] Gisella Parsons MD, PhD, AKASH Performing Organization Address City/[facility] Phone Number [email or web address] [place], [place] [address] INCORPORATED [address] [address] Anti-Mitochondrial Ab, reflex to titer (10/08/2019 3:53 AM CDT) Scan Result [facility] Specimen Blood Performing Organization Address [facility]/Zipcode Phone Number [facility] [place] [address] Type and screen, automated (10/08/2019 3:53 AM CDT) ABO/RH AUTOMATED (BEAKER) O POSITIVE [facility] Ab Scrn NEGATIVE [facility] Specimen Blood Performing Organization Address City/State/Zipcode Phone Number [facility] [address] [place] [address] T Spot TB (10/08/2019 3:53 AM CDT) T-Spot TB Negative [facility] Neg Ctrl Spot Count 0 [facility] Panel A Spot 0 [facility] Panel B Spot 0 [facility] Pos Ctrl Spot Ct 0 [facility] Scan Result [facility] Specimen Blood Narrative Performed At This result has an attachment that is no t available. Performing Organization Address City/[facility]/Zipcode Phone Number [facility] [address] [place] [address] LAB[address]ATOR[address] Actin (Smooth Muscle) Antibody, IgG (10/08/2019 3:53 AM CDT) Anti-Smooth Muscle Ab 21 (H) See Note: U [facility] Comment: INCORPORATED Reference Range: <20 NEGATIVE > OR = 20 POSITIVE Antibodies recognizing actin are the main compon ent of smooth muscle antibodies associated with autoimmune liver disease. Actin antibodies are found in approximately 75% of patients with autoimmune hepatitis (AIH) type 1, approximately 65% of patients with autoimmune cholangitis, approximately 30% of patients with primary bilia ry cirrhosis, and approximately 2% of healthy peopl e. High values are closely correlated with AIH type 1. Specimen Blood Narrative Performed At Performing Lab [facility] EZ [facility] [employer] [address] [address] [address] [place] [address] I Issa LINARES, PhD, AKASH Performing Organization Address City/State/Zipcode Phone Number [facility] [place] [address] [address] [facility] [id number] (10/08/2019 3:53 AM CDT) A-1 Antitrypsin >300.00 (H) 90.00 - 200.00 mg/dL [facility] Specimen Blood Narrative Performed At Vice President Of Compliance ID - DB [facility] Performing Organization Address City/[facility] Phone Number [facility] [address] [place] [address] CENTER Ceruloplasmin (10/08/2019 3:53 AM CDT) Ceruloplasmin 44 (H) 18 - 36 mg/dL [facility] Specimen Blood Narrative Performed At Performing Lab [facility] *CAROLE [employer] [facility], [address] [place] [id number] Alisha Silveira MD, PhD Performing Organization Address City/[facility] Phone Number [facility], [place], [place] [id number] [place] [address] Prothrombin time/INR (10/08/2019 3:53 AM CDT)Only the most recent of2 results within the time period is included. Protime 17.2 (H) 11.9 - 14.2 seconds [facility] INR 1.45 <=5.90 [facility] Specimen Blood Narrative Performed At Effective 07/04/2018: PT Reference Range [facility] Change New: 11.9-14.2Previous: 11.7-14.7 RECOMMENDED COUMADIN/WARFARIN INR THERAPY RANGES STANDARD DOSE: 2.0-3.0Includes: PROPHYLAXIS for venous thrombosis, systemic embolization; TREATMENT for venous thrombosis and/or pulmonary embolus. HIGH RISK: Target INR is 2.5-3.5 for patients wiht mechanical heart valves. Performing Organization Address City/[facility]/Zipcode Phone Number [facility] [address] [place] [address] CENTER Anti-Nuclear Antibody (HERON) (10/08/2019 3:53 AM CDT) HERON Negative Negative [facility] Specimen Blood Narrative Performed At Test performed by IFA method. [facility] Test performed by IFA method. Performing Organization Address City/State/[facility] Phone Number [address] [phone] CENTER Lipase (10/07/2019 8:16 PM CDT) Lipase 33 8 - 78 U/L [facility] Specimen Blood Narrative Performed At Vice President Of Compliance ID - [facility] Performing Organization Address [facility] Phone Number [address] [address] [place] Iron, TIBC, % sat. (without ferritin) (10/07/2019 4:37 PM CDT) Iron 21.0 (L) 40.0 - 160.0 ug/dL [facility] TIBC 255 250 - 450 ug/dL [facility] Iron % Saturation 8 (L) 20 - 55 % [facility] Specimen Blood Narrative Performed At Vice President Of Compliance ID - [facility] Performing Organization Address [facility] [place] Phone Number [address] [address] [place] Lactic acid, venous (10/07/2019 4:37 PM CDT) Lactate, Venous 1.36Comment: Specimen 0.50 - 2.20 mmol/L [facility] markedly hemolyzed [facility] Specimen Blood Narrative Performed At Vice President Of Compliance ID - [facility] Performing Organization Address [facility] Phone Number [address] abdomen/pelvis with IV contrast (10/07/2019 1:00 PM CDT) Specimen Narrative Performed At FINAL REPORT [facility] TECHNIQUE: CT of the abdomen and pelvis WITH intravenous contrast and WITHOUT oral contrast. Dose modulation, iterative reconstruction, and/or weight-based adjustment of the mA /kV was utilized to reduce the radiation dose to as low as reasonab ly achievable. INDICATION: SMV thrombosis. COMPARISON: None. FINDINGS: LOWER THORAX: Trace right-sided pleural effusion.. HEPATOBILIARY: Large geographic areas of decreased attenuation throughout the liver most prominent with in segment five consistent with hepatic steatosis. 2.1 x 1.4 x 3.5 cm enhancing lesion within segment seven of the liver. (Axial image 25)... Gallbladder is unremarkable. No biliary ductal dilatati on. SPLEEN: No splenomegaly. PANCREAS: No focal masses or ductal dila tation. ADRENALS: No adrenal nodules. KIDNEYS/URETERS: No hydronephrosis, ston es, or solid mass lesions. PELVIC ORGANS/BLADDER: Unremarkable. PERITONEUM/RETROPERITONEUM: Small volume pelvic ascites. No focal fluid collection or free air.. LYMPH NODES: No lymphadenopathy. VESSELS: Extensive thrombosis of the por alfreda veins, splenic vein and and superior mesenteric vein. There is a ssociated mesenteric fat stranding. No abnormal bowel wall thicke gabrielle. There are portal vein collaterals. There are small perisplenic and perigastric collaterals. GI TRACT: No distention or wall thickeni ng. No pneumatosis. Appendix is normal. BONES AND SOFT TISSUES: Unremarkable. 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 There are pe risplenic and periportal collaterals. Geographic areas of steatosis in the hue er with indeterminate 3.5 cm enhancing lesion within segment seven of the liver. Further evaluation with liver MRI is recommended . Small volume free pelvic fluid. Trace right-sided pleural effusion. Signed: Ritesh Casas MD Report Verified Date/Time:10/07/2019 17:51:12 Reading Location: [facility] C013Y CT Body R [facility] Room Procedure Note Interface, External Ris In - 10/07/2019 5:53 PM CDT FINAL REPORT TECHNIQUE: CT of the abdomen and pelvis WITH intravenous contrast and WITHOUT oral contrast. Dose modulation, iterative reconstruction, and/or weight-based adjustment of the mA /kV was utilized to reduce the radiation dose to as low as reasonab ly achievable. INDICATION: SMV thrombosis. COMPARISON: None. FINDINGS: LOWER THORAX: Trace right-sided pleural effusion.. HEPATOBILIARY: Large geographic areas of decreased attenuation throughout the liver most prominent with in segment five consistent with hepatic steatosis. 2.1 x 1.4 x 3.5 cm enhancing lesion within segment seven of the liver. (Axial image 25)... Gallbladder is unremarkable. No biliary ductal dilatati on. SPLEEN: No splenomegaly. PANCREAS: No focal masses or ductal dila tation. ADRENALS: No adrenal nodules. KIDNEYS/URETERS: No hydronephrosis, ston es, or solid mass lesions. PELVIC ORGANS/BLADDER: Unremarkable. PERITONEUM/RETROPERITONEUM: Small volume pelvic ascites. No focal fluid collection or free air.. LYMPH NODES: No lymphadenopathy. VESSELS: Extensive thrombosis of the por alfreda veins, splenic vein and and superior mesenteric vein. There is a ssociated mesenteric fat stranding. No abnormal bowel wall thicke gabrielle. There are portal vein collaterals. There are small perisplenic and perigastric collaterals. GI TRACT: No distention or wall thickeni ng. No pneumatosis. Appendix is normal. BONES AND SOFT TISSUES: Unremarkable. 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 There are pe risplenic and periportal collaterals. Geographic areas of steatosis in the hue er with indeterminate 3.5 cm enhancing lesion within segment seven of the liver. Further evaluation with liver MRI is recommended . Small volume free pelvic fluid. Trace right-sided pleural effusion. Signed: Ritesh Casas MD Report Verified Date/Time: 10/07/2019 1 7:51:12 Reading Location: [facility] C013Y CT Body R [facility] Room Performing Organization Address City/State/Zipcode Phone Number RIS Hepatitis A antibody, IgG (10/06/2019 5:40 AM CDT) Hep A IgG Reactive (A) Nonreactive [facility] Specimen Blood Narrative Performed At Vice President Of Compliance ID - PIAYA L [facility] Performing Organization Address City/State/Zipcode Phone Number [facility] [address] [place] [address] CENTER Hepatitis B core antibody, total (10/06/2019 5:40 AM CDT) Hep B Core Total Ab Nonreactive Nonreactive [facility] Specimen Blood Narrative Performed At Vice President Of Compliance ID - MIRI L [facility] Performing Organization Address City/[facility] Phone Number [address] [address] CENTER Hepatitis B surface antibody (10/06/2019 5:40 AM CDT) Hep B S Ab <8.0 <8.0 mIU/mL [facility] Specimen Blood Narrative Performed At Vice President Of Compliance ID - PICARINA L [facility] Performing Organization Address [facility] Phone Number [address] [address] CENTER Cardiolipin Antibodies, IgG and IgM (10/06/2019 5:40 AM CDT) Anticardiolipin IgG <1.6 <20.0 GPL [facility] Anticardiolipin IgM 0.3 <20.0 MPL [facility] Specimen Blood Narrative Performed At Anticardiolipin IgG Result Interpretatio n: [facility] <20.0 GPL Normal >/= 20.0 GPL Positive Anticardiolipin IgM Result Interpretatio n: <20.0 MPL Normal >/= 20.0 MPL Positive Performing Organization Address City/[facility] Phone Number [address] [address] CENTER Ferritin (10/06/2019 5:40 AM CDT) Ferritin 410.84 (H) 5.00 - 275.00 ng/mL [facility] Specimen Blood Narrative Performed At Vice President Of Compliance ID - BS [facility] Performing Organization Address City/[facility] Phone Number [address] [address] CENTER Beta 2 microglobulin (10/06/2019 5:40 AM CDT) B2 Microglobulin, 1.80 < OR = 2.51 [facility] Serum Comment: mg/L INCORPORATED This test was performed using the Daniels Immunot urbidimetric method. Values obtained from different assay methods cannot be used interchangeably. Beta-2 Microglobulin levels, regardless of value, shoul d not be interpreted as absolute evidence of the presence or absence of disease. Specimen Blood Narrative Performed At Performing Lab [facility] [address] [place] [address] I Issa LINARES, PhD, AKASH Performing Organization Address City/State/Zipcode Phone Number [facility], [place], [place] [address] [facility] JAK2, EXON 12 MUTATION ANALYSIS (10/05/2019 9:52 PM CDT) Jak2 Exon 12 Mutations NOT DETECTED NOT DETECTED [facility] CLINICAL INDICATION NOT GIVEN [facility] ([facility]) INC[facility]PORATED SPECIMEN SOURCE: LAV TOP WB [facility] Block/Specimen ID NOT GIVEN [facility] GENE DNR [facility] AMINO ACID DNR [facility] Mutation Analysis DNR [facility] MUTATIONS/POLYMORPHISMS DNR [facility] Exons 10,11,13-16 DNR [facility] NUCLEOTIDE CHANGE DNR [facility] REFERENCE ID ([facility]) DNR [facility] INTERPRETATION ([facility]) SEE BELOW [facility] Comment: INCORPORATED No mutation is detected in exon 12 of JAK2. Inse rtions up to 30bp and deletions up to 52bp have been successfully dete cted by the assay. This data was reviewed and interpreted by Chavez hernandez Ma, PhD. HCLD(ABB) ASSAY DETAILS SEE BELOW [facility] Comment: INCORPORATED This PCR-based advanced sequencing assay interro handy DNA from leukocytes for the presence of mutations in exon 12 of JAK2. Th e sensitivity of mutation detection is approximately 5% but may vary depen ding on the particular mutation type. Insertions up to 30bp and deletio ns up to 52bp have been successfully detected by the assay. Alterations outside of the tested areas of this gene will not be detected. Synonymous or known non-synonymous polymorphic changes (SNPs) are not reported. JAELYN 2 exon 12 mutations are associated with myeloproliferative neoplasms (MP Ns), specifically polycythemia vera (PV). Results of this assay sh ould be correlated with morphology and other laboratory testing for elba l diagnosis and classification. If this test is negative, additi onal testing that may be useful for workup of MPNs, depending on presenti ng hematologic features, includes BCR-ABL1 rearrangement (test code 59251 or 86157L) or mutational analysis of JAK2 V617F (PV/essential thrombocyth emia (ET)/primary myelofibrosis (PMF), [address]7786), CALR (ET/PMF, [address]1397 ), MPL (ET/PMF, 611[address]) or CSF3R (chronic neutrophilic leukemia, [address]). Re sidual material from this sample may be used except for BCR-ABL1 testing; call lab to add. DNA was aligned to GRCh37(hg19) for analysis and transcript ID [id number] was used as reference for JAK2 s equence. For additional information, please refer to http://education.Gravy.Guardium/faq/CCC996 (This link is being provided for informational/e ducational purposes only.) This test was developed and its analytical perfo rmance characteristics have been determined by [facility]. It has not been cleared or approved by FDA. This assay has been validated pursuant to the CLIA regulations and is used for clinical purposes. Specimen Blood - Whole Blood Narrative Performed At Performing Lab [facility] [address] [address] [place] [address] Gisella Parsons MD, PhD, AKASH Performing Organization Address City/State/Zipcode Phone Number [email or web address] [place], [place] [address] INCORPORATED [address] [address] [facility] SARS-CoV2/RT-PCR (Symptomatic ONLY) (10/05/2019 11:59 AM CDT) SARS-COV2/RT-PCR Negative Not Detected, Negative, [facility] See external report for MEDICAL CENTER linked test SARS-COV-2 PERFORMING LAB [facility] ROSCOE [facility] Specimen Other Narrative Performed At Negative result for this test determines that [facility] SARS-CoV-2 RNA was not present in the specimen above the Limit of Detection (LOD).However, Negative results do not preclude SARS-CoV-2 infection and should not be used as the sole basis for treatment or patient management decisions. Negative results must be combined with clinical observations, patient history, and epidemiological information. A false negative result may occur if a specimen is improperly collected, transported or handled.A false negative result should be considered if patient's recent exposures or clinical presentation indicate that COVID-19 (SARS-CoV-2) is likely and diagnostic tests for other causes of illness are negative.Re-testing should be considered in cases of suspected false negatives. The limit of detection for this assay is 800 copies/mL. This SARS CoV-2 test is a real-time RT-PCR test intended for the qualitative detection of nucleic acid from SARS-CoV-2 in a nasopharyngeal swab specimen collected from individuals suspected of COVID-19 by their healthcare provider. This test has not been Food and Drug Administration (FDA) cleared or approved.This is a modified version of an approved Emergency Use Authorization (EUA) and is in the process of review by the FDA. Once authorized by the FDA, the issued EUA will be effective until the declaration that circumstances exist justifying the authorization of the emergency use of in vitro diagnostic tests for detection and/or diagnosis of COVID-19 is terminated under Section 564(b)(2) of the Act or the EUA is revoked under Section 564(g) of the Act. Fact Sheet for Healthcare Providers: https://www.Freshdesk.com/sites/default/files/pro duct/documents/Fact_Sheet_HC_Providers_Lyra_SA RS-CoV-2.pdf Fact Sheet for Healthcare Patients: https://www.Freshdesk.com/sites/default/files/pro duct/documents/Fact_Sheet_Patients_Lyra_SARS-C oV-2.pdf Performing Laboratory: [address] [place] [address] Performing Organization Address City/State/Zipcode Phone Number [address] [address] CENTER Urinalysis w/Microscopic + Reflex to Culture (10/05/2019 11:49 AM CDT) Color, UA Yellow [facility] Clarity, UA Clear [facility] Specific [place], UA 1.016 1.001 - 1.035 [facility] pH, UA 7.0 5.0 - 8.[address] [facility] Protein, UA Negative Negative [facility] Glucose, UA Negative Negative [facility] Ketones, UA 60 mg/dL (A) Negative [facility] Bilirubin, UA Negative Negative [facility] Blood, UA Negative Negative [facility] Nitrite, UA Negative Negative [facility] Leukocytes, UA Negative Negative [facility] Urobilinogen, UA 2.0 (H) 0.2 - 1.0 mg/dL [facility] RBC, UA <1 /HPF [facility] WBC, UA 1 /HPF [facility] Mucus Rare [facility] Specimen Source [facility] Specimen Urine Narrative Performed At Vice President Of Compliance ID - [auto] [facility] Vice President Of Compliance ID - tech Performing Organization Address City/State/Zipcode Phone Number [facility] [address] [place] [address] CENTER Rapid drug screen, urine (10/05/2019 11:49 AM CDT) Barbiturate Screen Negative Negative [facility] Benzodiazepine Screen Negative Negative [facility] Cocaine (Metab.) Screen Negative Negative [facility]3] L [facility] Methadone Screen [facility] Negative [facility] Opiate Screen Negative Negative [facility] Cannabinoid Screen Positive (A) Negative [facility] Amph/Methamph Screen Negative Negative [facility] Phencyclidine Screen Negative Negative [facility] pH, UA 7.0 5.0 - 8.0 [facility] Specimen Urine Narrative Performed At [facility] CONC. Cocaine 300 ng/mL Wdkwtbetyfz26 ng /mL Fjcmderjxenkes962 ng/mL Barbiturate 200 ng/m L Cymbyiygaexis39 ng/m L Qrcvof552 ng/mL Methadone 300 ng /mL Amphetamine/ 1000 ng/mL Methamphetamine This assay provides an unconfirmed qualitative test result for the clinical management of patients in emergency situations. Chain of custody not maintained. Some lnyx-ebh-kclvyrg medications, as well as adulterants, may cause inaccurate results. Clinical correlation should be applied. A more comprehensive drug screen or confirmation of a detected drug may be performed upon request. Vice President Of Compliance ID - JENNYFER C Performing Organization Address City/[facility]/Zipcode Phone Number [address] [address] CENTER HIV-1 Antigen with HIV-1/2 Antibody (10/05/2019 10:32 AM CDT) HIV-1 Antigen with HIV 1&2 Nonreactive Nonreactive [facility] Specimen Blood Narrative Performed At Vice President Of Compliance ID - JENNYFER C [facility] Performing Organization Address City/[facility]/Zipcode Phone Number [address] [address] CENTER Hepatitis panel, acute (10/05/2019 10:32 AM CDT) Hep A IgM Nonreactive Nonreactive [facility] Hep B C IgM Nonreactive Nonreactive [facility] Hepatitis C Ab Nonreactive Nonreactive [facility] HBsAg Screen Nonreactive Nonreactive [facility] Specimen Blood Narrative Performed At Vice President Of Compliance ID - JENNYFER C [facility] Performing Organization Address [facility]/Zipcode Phone Number [facility] [address] [place] [address] CENTER Blood Culture - Routine (Right Venipuncture) (10/05/2019 10:32 AM CDT)Only the most recent of2 resultswithin the time period is included. Result No growth in 5 days [facility] Specimen Blood Performing Organization Address [facility] Phone Number [facility] [address] [place] [address] CENTER XR chest 1 view portable / bedside (10/05/2019 9:41 AM CDT) Specimen Narrative Performed At FINAL REPORT [facility] History: TB exposure. FINDINGS: Abdomen, single view: Single AP view of the abdomen shows a no rmal appearing heart and mediastinum. No mediastinal or hilar melchor nopathy is present. Lungs are clear, free of edema, focal consolidatio n or visible effusions. No pneumothorax. Bones are unremarkable. IMPRESSION: 1. Negative for acute cardiopulmonary di sease. Signed: Anamaria Erickson MD Report Verified Date/Time:10/05/2019 10:09:02 Reading Location: [address] [facility] Reading Room Procedure Note Interface, External Ris In - 10/05/2019 10:11 AM CDT FINAL REPORT History: TB exposure. FINDINGS: Abdomen, single view: Single AP view of the abdomen shows a no rmal appearing heart and mediastinum. No mediastinal or hilar melchor nopathy is present. Lungs are clear, free of edema, focal consolidatio n or visible effusions. No pneumothorax. Bones are unremarkable. IMPRESSION: 1. Negative for acute cardiopulmonary di sease. Signed: Anamaria Erickson MD Report Verified Date/Time: 10/05/2019 1 0:09:02 Reading Location: [facility] Reading Room Performing Organization Address City/State/Zipcode Phone Number GE RIS Comprehensive metabolic panel (10/05/2019 8:08 AM CDT) Protein, Total 6.2 6.0 - 8.3 gm/dL [facility] Albumin 3.2 (L) 3.5 - 5.0 g/dL [facility] Alkaline Phosphatase 79 40 - 150 U/L [facility] Total Bilirubin 1.1 0.2 - 1.2 mg/dL [facility] Sodium 137 136 - 145 meq/L [facility] Potassium 3.2 (L) 3.5 - 5.1 meq/L [facility] Chloride 104 98 - 107 meq/L [facility] CO2 24 22 - 29 meq/L [facility] BUN 6 (L) 7 - 21 mg/dL [facility] Creatinine 0.69 0.57 - 1.25 mg/dL [facility] Glucose 88 70 - 105 mg/dL [facility] Calcium 7.8 (L) 8.4 - 10.2 mg/dL [facility] AST 27 5 - 34 U/L [facility] ALT 29 6 - 55 U/L [facility] EGFR 131Comment: ESTIMATED mL/min/1.73 sq m [facility] GFR IS NOT ACCURATE [facility] CREATININE CLEARANCE IN PREDICTING GLOMERULAR FILTRATION RATE. ESTIMATED GFR IS NOT APPLICABLE FOR DIALYSIS PATIENTS. Specimen Blood Narrative Performed At Vice President Of Compliance ID - JENNYFER Isabel [facility] Performing Organization Address City/State/Zipcode Phone Number [facility] [address] [place] [address] CENTER after 10/17/2018 Insurance Payer Benefit Plan / Group Subscriber ID Type Phone A ddress CDC REVIEW CDC REVIEW xxxxxxxx [address] [place], [place] [phone] Advance Directives For more information, please contact:[address] [place]ksRing[place], [place] [phone] Code Status Date Activated Date Inactivated Comments Full Code 10/05/2019 6:35 AM 10/10/2019 6:30 PM This code status was determined by: Patient
--- OUTSIDE RECORDS SUMMARY | 2019-10-18 00:53 | XMS REPORT | Continuity of Care Document ---
:1985 Author Organization [facility] t Address [address] [place] [address] Care Team Providers Name Role Phone Meeta Boggs MA Attending Clinician Unavailable Gui CRUMP, Ladonna Attending Clinician RAYSHAWN WILKINS Attending Clinician Unavailable Rayshawn Wilkins MD Attending Clinician [phone] Sunil LINARES, Nishi Conde Attending Clinician Merchant LINARES Attending Clinician Iban Mckinley MD Attending Clinician Sosa Alberto MD Attending Clinician Admitting Clinician Unavailable Payers Payer Name Policy Type Policy Number Effective Date Expiration Date S filemon [facility] REVIEW[facility] xxxxxxxx [facility] [id number] Center Problems Condition Condition Condition Status Onset Resolution Last Treating Co mments Source Name Details Category Date Date Treatment Clinician Date 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 Family History Family Member Diagnosis Comments Start Date Stop Date Source Natural father Bipolar disorder [facility] Natural father Cirrhosis [facility] Natural father Drug abuse [facility] Natural father Hepatitis [facility] Natural father Hypertension [facility] Natural father Tuberculosis [facility] Natural mother CAROL disease [facility] Natural mother Hyperlipidemia [facility] Natural mother Hypertension [facility] Social History Social Habit Start Date Stop Date Quantity Comments Source Sex Assigned [facility] History [facility] Alcohol 2019-10-05 2019-10-[address] [facility] - Frequency 00:00:00 00:00:00 Medical Center History [facility] Alcohol 2019-10-05 2019-10-[address] [facility] - Std Drinks 00:00:00 00:00:00 [facility] History [facility] Alcohol 2019-10-05 2019-10-[address] [facility] - Binge 00:00:00 00:00:00 [facility] Medications Ordered Filled Start Stop Current Ordering Indication Dosage Frequency Signature Comments Components Source Medication Medication Date Date Medication? Clinician (SIG) Name Name pantoprazol 2019-0 Yes 40mg QD Take 1 [facility] e 9-03 tablet (40 [facility] - (PROTONIX) 00:00: mg total) Me dical 40 MG 00 by mouth Center tablet daily. rivaroxaban 2020-0 Yes 20mg Take 1 [facility] (XARELTO) 9-03 tablet (20 [facility] - 20 mg Tab 00:00: mg total) Med ical tablet 00 by mouth Center daily with dinner. rivaroxaban 2020-0 Yes 15mg Take 1 [facility] (XARELTO) 9-03 tablet (15 [facility] - 15 mg Tab 00:00: mg total) Med ical tablet 00 by mouth 2 Center (two) times daily with breakfast and dinner. Vital Signs Vital Name Observation Time Observation Value Comments Source Body height 2019-10-15 17:35:00 172.7 cm [facility] Body weight Measured 2019-10-15 17:35:00 93 kg [facility] BMI 2019-10-15 17:35:00 31.17 kg/m2 [facility] Systolic blood 2019-10-10 10:37:00 119 mm[Hg] [facility] Diastolic blood 2019-10-10 10:37:00 64 mm[Hg] [facility] Heart rate 2019-10-10 10:37:00 64 /min [facility] Body temperature 2019-10-10 10:37:00 36.33 Carito [facility] Respiratory rate 2019-10-10 10:37:00 18 /min [facility] Oxygen saturation in 2019-10-10 10:37:00 100 /min [facility] Arterial blood by Medical Ce nter Pulse oximetry Procedures Procedure Date / Time Performing Clinician Source Performed REPORT OF PROCEDURE - 2019-10-11 14:30:23 Provider, Default [facility] ENDOSCOPY SCAN [facility] RHYTHM STRIP - SCAN 2019-10-11 14:30:14 Provider, Default [facility] APTT 2019-10[facility]10 [facility]T [facility] & AUTO 2019-10-10 04:56:00 Will Canada [facility] APTT 2019-10-09 [facility]:58[facility] 2019-10-09 18:02:53 Provider, Default [facility] - - SCAN [facility] APTT 2019-10-09 15:01:00 Nishi Barber [facility] CT ABDOMEN WITH & WITHOUT 2019-10-09 10:28:00 Heidi Odell [facility] CONTRAST [facility] BASIC METABOLIC PANEL (7) 2019-10-09 06:21:00 Will Canada CH, I [facility] APTT 2019-10-09 06:21[facility] W/PLT COUNT & AUTO 2019-10-09 06:21:00 Will Canada [facility] S t [facility] APTT 2019-10-09 01:06:00 Will Canada [facility] CARCINOEMBRYONIC ANTIGEN 2019-10-08 17:49:[address] [facility] - (CEA) [facility] ALPHA FETOPROTEIN (AFP), 2019-10-08 17:49:[address] [facility] - TUMOR MARKER [facility] CARBOHYDRATE ANTIGEN 19-9 2019-10-08 17:49:00 Alisha Wright [facility] (CA 19-9) [facility] APTT 2019-10-08 17:49:00 Nishi Barber [facility] REPORT OF PROCEDURE - 2019-10-08 12:07:26 Sherrell Alberto [facility] ENDOSCOPY [facility] TISSUE EXAM 2019-10-08 11:57:00 Sheikh [facility] UPPER ENDOSCOPY,BIOPSY 2019-10-08 09:00:00 Sherrell Alberto [facility] ABORH, MANUAL 2019-10-08 04:36:00 Monica Rodriguez [facility] BASIC METABOLIC PANEL (7) 2019-10-08 03:53:00 Will Canada CH [facility] T SPOT TB 2019-10-08 03:53:00 Shubham Mcmanus [facility] CERULOPLASMIN 2019-10-08 03:53:00 Reza Ballard [facility] [id number]\\, SERUM 2019-10-08 03:53:00 Reza Ballard [facility] ANTI-NUCLEAR ANTIBODY (HERON) 2019-10-08 03:53:00 Reza Ballard [facility] ACTIN (SMOOTH MUSCLE) 2019-10-08 03:53:[address] [facility] - ANTIBODY, IGG [facility] ANTI-MITOCHONDRIAL AB, 2019-10-08 03:53:00 Reza Ballard [facility] REFLEX TO TITER [facility] PROTHROMBIN TIME/INR 2019-10-08 03:53:00 Will Canada [facility] MITOCHONDRIAL AB SCREEN 2019-10-08 03:53:00 Reza Ballard [facility] MITOCHONDRIAL AB TITER 2019-10-08 03:53:00 Reza Ballard CH [facility] TYPE AND SCREEN, AUTOMATED 2019-10-08 03:53:00 Will Canada [facility] CBC W/PLT COUNT & AUTO 2019-10-08 03:53:00 Will Canada [facility] S [facility] DIFFERENTIAL [facility] LIPASE 2019-10-07 20:16:00 LatiaphillyHarrison barclay [facility] APTT 2019-10-07 20:16:00 Nishi Barber [facility] IRON, TIBC, % SAT. (WITHOUT 2019-10-07 16:37:[address] [facility] - FERRITIN) [facility] LACTIC ACID, VENOUS 2019-10-07 16:37:00 YonathanShubham [facility] APTT 2019-10-07 16:37:00 Nihsi Barber [facility] CT ABDOMEN/PELVIS WITH IV 2019-10-07 13:00:[address] [facility] CONTRAST [facility] APTT 2019-10-07 11:10:00 Nishi Barber [facility] BASIC METABOLIC PANEL (7) 2019-10-07 01:52:00 Will Canada [facility] CBC W/PLT COUNT & AUTO 2019-10-07 01:52:00 Merchant Will [facility] S [facility] APTT 2019-10-07 01:51:00 Nishi Barber [facility] APTT 2019-10-06 18:32:00 Nishi Barber [facility] APTT 2019-10-06 12:31:00 Nishi Barber [facility] HEPATITIS B CORE ANTIBODY, 2019-10-06 05:40:[address] [facility] - TOTAL [facility] BETA 2 MICROGLOBULIN 2019-10-06 05:40:00 Laurence Gonzalez [facility] CARDIOLIPIN ANTIBODIES, IGG 2019-10-06 05:40:[address] [facility] - AND IGM [facility] HEPATITIS B SURFACE 2019-10-06 05:40:00 Kathy Samaniego [facility] - ANTIBODY [facility] HEPATITIS A ANTIBODY, IGG 2019-10-06 05:40:00 Kathy Samaniego [facility] APTT 2019-10-06 05:40:00 Nishi Barber [facility] FERRITIN 2019-10-06 05:40:00 Reza Ballard [facility] JAK2, EXON 12 MUTATION 2019-10-05 21:52:00 Laurence Gonzalez [facility] APTT 2019-10-05 21:50:00 Nishi Barber [facility] SARS-COV2/RT-PCR ([facility] & 2019-10-05 11:59:00 Nishi Barber [facility]) [facility] RAPID DRUG SCREEN, URINE 2019-10-05 11:49:00 Nishi Barber [facility] URINALYSIS W/ REFLEX URINE 2019-10-05 11:49:00 Nishi Barber [facility] BLOOD CULTURE 2019-10-05 10:32:00 Nishi Barber [facility] APTT 2019-10-05 10:32:00 Claudette [facility] HEPATITIS PANEL, ACUTE 2019-10-05 10:32:00 Nishi Barber CH I [facility] HIV-1 ANTIGEN WITH HIV-1/2 2019-10-05 10:32:[address] [facility] BLOOD CULTURE 2019-10-05 10:31:00 Nishi Barber [facility] XR CHEST 1 VIEW 2019-10-05 09:41:00 Nishi Barber [facility]/BEDSIDE [facility] CBC W/PLT COUNT & AUTO 2019-10-05 08:09:00 KASHMIR Wilkins [facility] APTT 2019-10-05 08:08:00 Claudette [facility] PROTHROMBIN TIME/INR 2019-10-05 08:08:00 ElizabethDerrek [facility] COMPREHENSIVE METABOLIC 2019-10-05 08:08:00 [facility] Planned Activity Planned Date Details Comments Source Future Scheduled 2019-10-08 INFLUENZA VACCINE (#1) [facility] 00:[facility]:00 [code = INFLUENZA Medical Ce nter VACCINE (#1)] Future Scheduled 2005 [facility] (procedure) [code = Medical Center 32336613] Future Scheduled 1991-05-21 [facility]INE [facility]:00 2-64 YEARS AT RISK (1 [facility] of 1 - PPSV23) [code = PNEUMOCOCCAL VACCINE 2-64 YEARS AT RISK (1 of 1 - PPSV23)] Results Test Description Test Time Test Comments Results Result Comments Source JAK2, EXON 12 MUTATION ANALYSIS 2019-10-12 19:45:00 Test Item Value Reference Range Interpretation Comme nts Jak2 Exon 12 NOT DETECTED NOT DETECTED Mutations (test code = 8053589) CLINICAL INDICATION NOT GIVEN ([facility]) (test code = 3792070) SPECIMEN SOURCE: LAV TOP WB (test code = 4104699) Block/Specimen ID NOT GIVEN (test code = 6222113) GENE (test code = DNR 1738316) AMINO ACID (test code DNR = 6608156) Mutation Analysis DNR (test code = 0651833) MUTATIONS/POLYMORPHIS DNR MS (test code = 1696564) Exons 10,11,13-16 DNR (test code = 3845342) NUCLEOTIDE CHANGE DNR (test code = 1511525) REFERENCE ID (QUEST) DNR (test code = 0892143) INTERPRETATION SEE BELOW No mutation is detected in (QUEST) (test code = exon 12 of JAK2. Insertions up ) to 30bp and del etions up to 52bp have been successfully detected by the assay. This data was review ed and interpreted by Mo Quinones, PhD. GAVIN(ABB) ASSAY DETAILS (test SEE BELOW This PCR -based advanced code = 8189392) sequencing a ssay interrogates DNA from leukoc ytes forthe presence of mut ations in exon 12 of JAK2. The sensitivity of mutationdetecti on is approximately 5 % but may vary depending on th e particularmutat ion type. Insertions up t o 30bp and deletions up to 52bp have beensuccessfull y detected by the assay. Alte rations outside of the tested a reasof this gene will not be det ected. Synonymous or k nown non-synonymousp olymorphic changes (SNPs) are not reported. JAK2 exon 12 mutations areas sociated with myeloproliferat salbador neoplasms (MPNs), specificallypol ycythemia vera (PV). Results o f this assay should be corre lated withmorphology and other laboratory test ing for final diagnosis andcl assification. If this test is ne gative, additional test ing that may beuseful for wo rkup of MPNs, depending on pr esenting hematologic fea tures,includes BCR-ABL1 rearra ngement (test code 70311 or 1 0350X) or mutationalanaly sis of JAK2 V617F (PV/essen tial thrombocythemia (ET)/primarymye lofibrosis (PMF), 12717), CALR (ET/PMF, 91955), MPL (ET /PMF, 23656) sqIMV8F (chroni c neutrophilic leukemia, 19031 ). Residual material from t hissample may be used except for BCR-ABL1 testing; call l ab to add. DNA was aligned to GRCh37(hg19) for analysis and tr anscript [id number] was used as reference for J AK2 sequence. For additional information, please refer [email or web address]/FA Q211(This link is being provid ed for informational/e ducational purposes only.) This test was developed and i ts analytical performance quentin racteristics havebeen determ ined by [facility] Bridgett sales.It has not been cleared or approved by FDA. This assay has been validatedpursua nt to the CLIA regulations and is used for clinical purpos es. MADAI (test code = MADAI) Performing Lab EZ [facility] [address] [place] [address] Gisella Parsnos MD, PhD, AKASH [facility] 19-9 (CA 19-9)2019-10-11 14:51:00 Test Item Value Reference Range Interpretation Comments CA 19-9 10 U/mL <34 This test was (test code = performed using the 33379-0) Siemens Chemiluminescen t method.Values o btained from different assay methods cannot be used interchangeably .CA19-9 levels, regardl ess of value, should n ot be interpreted as absoluteevidenc e of the presence or abs ence of disease. MADAI (test Performing Lab code = MADAI) [employer] [facility] [address] [place] [address] Gisella Parsons MD, PhD, AKASH [facility] [id number] 09:33:00 Test Item Value Reference Range Interpretation Comments T-Spot TB (test code = 15833-3) Negative Neg Ctrl Spot Count (test code = 0 98339-4) Panel A Spot (test code = 55593-7) 0 Panel B Spot (test code = 17470-8) [address] (test code = 0 81659-9) Scan Result (test code = 5903253) [facility] [id number] 09:33:00 Test Item Value Reference Range Interpretation Comments T-SPOT TB (BEAKER) (test code = Negative 1683) NEG CONTROL SPOT COUNT (BEAKER) 0 (test code = 1684) PANEL A SPOT (BEAKER) (test code = 0 1685) PANEL B SPOT (BEAKER) (test code = 0 1686) POS CONTROL SPOT CT (BEAKER) (test 0 code = 1687) SCAN RESULT (test code = 7362438) ANTI-MITOCHONDRIAL AB, REFLEX TO [id number] 09:21:00 Test Item Value Reference Range Interpretation Comments SCAN RESULT (test code = 5656325) Anti-Mitochondrial Ab, reflex to [id number] 09:21:00Scan ResultQUEST DIAGNOSTIC INCORPORATEDSummit CampusActin (Smooth Muscle) Antibody, [id number] 22:58:00 Test Item Value Reference Interpretation Comments Range Anti-Smooth Muscle 21 U See Note: H Reference Range:<20 Ab (test code = NEGATI VE> OR ) = 20 POSITIVE Antibodies recognizing act in are the main componentof smo oth muscle antibodi es associated withautoimmune liver disease. Actin antibodie s arefound in approximately 7 5% of patients withautoimmune hepatitis (AIH) type 1, awvonmnrjvvwy32 % of patients with autoimmune cholangitis,sumit luz mately 30% of patients with primary biliarycirrhosi s, and approximate ly 2% of healthy people.High hali ues are closely correlated with AIH type 1. MADAI (test code = Performing Lab MADAI) [facility] [employer] [facility] [address] [place] [address] Gisella Parsons MD, PhD, AKASH Lab Interpretation Abnormal (test code = 64428-8) [facility] [id number] 18:55:00 Test Item Value Reference Range Interpretation Comments Case Report (test code Surgical Pathology = 104) Report Case: [id number] Authorizing Provider: Sherrell Alberto MD Collected: 10/08/2019 11:57 AM Ordering Location: [address] Received: 10/08/2019 01:34 PM Service Pathologist: Dawn Mcgrath MD Specimen: Biopsy, Gastric, random ADDENDUM (test code = [id number] 3381) ZaTEEvd4fnBXEuuTRkOiWi MzNcZnRuYmpcdWMxXGRlZm Oen5zub874oDJpd2wrHHQz TmQ8vIYkJYSmoHRmE586RT WtVHgkq6fmu4DnUADakUMz x3S1KYYyoxzlpMb1sHapT9 2na0Z9DhbwG9ccTGOvGRhv DMHiCIgmeKCnIAT5GNNvBV Z5POdlsvTzsyQ7KFxaoFLj ToI5BGn8v2svaDxoZCGeSW P5e1dvQQyrvyAbQO9vbq7q zKw8i0bzmvAvQBPoLSNjoL VWWFVtU7CeyDhbQn4vnGw1 cQbwMiqmSDH2Ief5BA6rej 23yfn7iXgqXLMvqwdrHuU9 QDndMZYhksaqDOz4AKbnAM TlpNC3MRFrhMMfO8UoMMCg AV4yley4FXP8ILmoXEBwUb M7ZRGueKJxJMBjcUsbKVcs n779NJI3OkZgBJ5fW8Kgn3 G2dM8nsPMaVJJpoIAmIvXs LOVdzy3duIQdKUnbb7AyJO A3irR1hCCtlENmDZRtZH64 Xhspl4LjWdxtPVW5KXFjpx Xuf6Mme3uvOqQkxwVjB4ne M6VxAONaCSLqLOQrQtNxpl Wuq4Tyh9VpdCThlDt4f1yb MJMiMTQreGfxm8qzLZK1KC BnZ1X9iOHzv4vnHYriTNXa aJG8ipO4VKQapHHsX1UbpH 4fMORuKS8fzjd4r2rfYSI3 FUoqLKHdKzP7dhU1FGXflT AcMOYlwVnbRYacy304YNQ5 JnZgDIJbr4RjH5CrgWoeO1 6keLbnA46oVEQhvYqixK0f qJnonK4tQwNgMiMeTHkgtQ QeIXFmlVuxfYrtkJ1yJrCw ZnMyMFxwbGFpblxmMVxmcz TpKRXgvUFdLBSuZH9qnU0k aXMgaXNzdWVkIHRvIHJlcG 9msPI8jYGjgtQybEi9RQ8z YYhhzLRqw2sgt3HrD9xjeK fhYOaym2X9FIoxWx2iWCuh eZnsl6GqN5QuglCesKipgi m0HYHmmvFhQQ5MG9FTDLKX XHBhclxwbGFpblxmMVxmcz IwXHUxNjAgXCdhMFxwbGFp blxmMVxmczIwXHBhciBUaG GkwX20SSSdyyV2MEViy61x o3ShzLaqnfEqSZDmPJghC6 s5OOVmHTRvKXP5f4Unl2Ai aM6kxY5baJyvcQ6xnVEjnO A7rtlmi6Ghj0AkL2awgURz dGFpbnMuXHBhclxwbGFpbl xmMVxmczIwXHUxNjAgXCdh MFxwbGFpblxmMVxmczIwIE yABPyBJ0TYC2PLGfLIYNeN UctcwKZwVKbycTMfy8ije6 OmK6imiDsanWB6UDSsQ4bq iAUzvKW7MGD1eR7kTMzldo UxIRMrv2LoDCZiQUTeSnK8 sI0cRPF0GxTIwAutDLKiMC luXGYwXGZzMjBcdTgyMTcg PCp6UvblmZTqinogIHrtka VkQKOcVVJyeICmeVAXUH90 PJWdWSNcmKppvC6sdWIFTU KrvcF6y9D4EIvaRZYhYAj7 FHzvtfHgRJZueO0lXRElOE 3uXRc9zrNtGSIgx7JlPB9e DRKkjVRlXZL5QFVrq8YlA7 Qhe9WhPCXmAIQbuh1kuaUp SzCNfPUbLECgfi38RTAcEJ 0tJ5goHSSgTMBbpkOfnHDl b4MzNPCdqBE5jSTtLD9YKp IYq37rRBQsFENGzfCkSPJx uEeafMA5rlR2pA5hHlMVfI RhJiLXDMpzzdArMFRtgf0f qeHfPBHuZMOaw7CxbYYroN YwlpSdT9Zgc3EbSUPxwp93 JUetxDYbdh26LI3eJ7Ydl3 HgtK3pWHemEYEud7ThiHNm eNKlXDAkx0QlR0eygccmWQ rwsCKffB1kORRtDEc7QTBv b2RyJITei4EsCeTsdmDwOA TgFTVgBZFbzO37OYY3nExi hPdghuCbOZ3jMXQhaoGjNQ UiAFBmhJ2uFJggmbMhVPGu stN5t4K9YWbmJUIyqmDzHi xjZNB9nhGedyK2hVLoM2sn vmqkCJckSMZyq9WvzE2lwN QNwFZld4OamOOfiHYKoKEs FB1mkmDlHZ8oTSD4SWypZA REBUSaFQzaZXBzXLE3VNqx LtomOJS8jkJrCRGsb1VgCW atG7daD13auJeepBh4yWKl lRujsHWrpRXpIEPawaL0g0 Q5SVRhs7ThlrkgUNKciipr bGFpblxmMVxmczIwXHUxNj AgXCdhMFxwbGFpblxmMVxm blLvFTToduMTLIAdT93ARV ogODgzNDJccGFyXHBsYWlu WNSnKBGbYkEpmVI4JTRwY3 EwXHBsYWluXGYxXGZzMjBc cGFyfQ== DIAGNOSIS (test code = b0xjsCReEJXck8aeLLAvkM 3220) FuZzEwMzNcZnRuYmpcdWMx HUpvfvLsTAgnr1EwV8EzGh AwMFxhbnNpXGRlZmxhbmcx URVsLGW8coKiNPOfQPxoPR BxNOxyJt2qhWGmmIphWwFk IAOeg1cyavPSzazagXr3o8 lnSKWtGfT4wAVrJNmwM1ch xvLqoKJyNQFlVIq1hH23DS GhlP1quHXoPDbjsaHaGuQ6 UOysLAEoQeE2RSQpeHRcLB KrL2vaYRLxJYnoDBCbAKkg iHVvYPC9hZyya1J8hPRwgU MjmXnqAjFxXlFrFJCNw4Eu GAe0bFvxH6KmMWXzYiI7yN QgUGFyYWdyYXBoIEZvbnQ7 wR89IHpysyR1tYLpr1Drn6 6cp034fF5eeDXlGKC0UJTf RMQwxTQsQVIwRIG9GQVfhZ PjM2r1XvJzeREfD5K7OrGi qHKxC6I4XmKdjGSgE0L9Xm WabLJgEFFgjZUyYl0naWLj iPLnuq7ohc54AQY2t5XrpA vjORW2JSY9InPzFz9ebADh MMQvIM0sPgXowQZpFMIiiy 44cQgcKEfpfcDtxZ1qPzIp GNSivSRiAIXxLT3wlQQcTX JkfH8nnkdlNGLsAlPyinze HAFxsLsdkuBxHa6yzZujWW H8YLqkP5qxdL8zYyP7OImb C5ivdF8cHTo1WEuojQB0KF OvbV0bMU7yzfcor4fnXbGf ZA8rrgtkp7dwPsWqIH8per c2r4vzVeDqBQ9trmgzq9ub NzIwXGhlYWRlcnkwXGZvb3 TmiswcRPYkn3TeE1UuyXle Y54raRfeI83fZGEguTioxQ 7cnGnvlB9uQfDxNfIdLDeo bFxwbGFpblxmMVxmczIwXG rxbunyDNEvEYudU2jsWiCq FZZsgTngNFhzw1YfYOWrKR AoPfUaL3FVJLUBONqbGoYU HK3MYAZYTtZHE4VUABjQFG OZN5IDFCsgdGDzQUVhUJFI TlRSQUwgVFlQRSBHQVNUUk cKLN3CR22SIRXCGNEPWXAJ CKHGLKWZXTpHF1DDV6PCHB pNGKMxgsTpAK9zI1tNLeYO OeGSRTRJH1BhS6vICCVNDK sRZPLCLa2UEPScEJ4SADZV RKXFVV7XOIUfdsNhSV4iGi 5vFCQUMM1KXBInWOFDAGOZ QkXCJDVQJLWSKC2KRO0YXE tCFE1WU4EJCDDZVyVBLQYE HK8JNTkBBmEXKZ2zL4ARNn YSCWBTOPaJUAHuouDeIB2v Sh9aKW7YQPEYWP5MCKRFJZ NTCVgRN3tDDGGHVREQOVLT RYBvG4ZpDNKAKUbEKJ4WFS GWM0FWWLtiNZAqMOVsDDiM BOZKG7bQF4BKI8qZJHjLRT faG5RYLW2qYv9WLFzRNJmJ K4SAO3FUOtBQPxNGFYyYLn OWA64WGjSFUKULWYHwA7gI BBLNYYMYQ9MZXYQgGMXzzm LpKIKkZG3sSJZCNUHRPKMG RNAFRYXDXF0HFVgzXVS0g6 xydGYxXHNzdGUxODAwMFxh bnNpXGRlZmxhbmcxMDMzXG N0mzItEMBmUNdrZRPgDJvu Hl3uiNCndGohDzBzLETwo0 xchbILgjhquTl2i2hvBKEt BeS4zNDiTXnuF6rgvgYzhS PoYPCjEGi5rV86IKGomT6k mWZgAUoohnIzCeP8ETdeHH FwZjI5NGQmvKIrCBZwV9hy ZWQwXGdyZWVuMFxibHVlMC U2nKyxs6M0yARnjJWzcEzz VwZcHiSsKlZMv6ZzQMv0iY daL6UlEBShWqC9uPVpGXAe DBkwIGLqZXTeboJ2dE00FO rwdpU3kQTdc2Prw65so405 xO6qfLUvAUI1GLErPNDrgW VhAOQzNZA2KHTccNMiL6hv OEAyRW3umjkjYBaoMHtzWR HrxQH5KMMwvBWkZ8AwZSGl LYagBFPpsmb8FsEgDp9xgT XgiTymOFgxs6dis1pouILj Psz5IWPaApSyUbbrTXjus7 Ibt7xwHEPzkq6bTSI9lKXk wNyik8H0gYZsHDMzqGGjTV HiCG0niHSnTLVlrH8djiqy XHBnYnJkcmhlYWRccGdicm PgAz0atXydKFV2FWozR3mt xO7rAyC8GGpqG2xjiI0pUO r6LQneVEXgwWH6auN8PCMb yWTqZ3IfzB6jTQLeIA4des n9k7ykIVV2CTpcQXTtXjE6 xzV8YDMowDFlEEGmcZopEJ pse130MVQ0EqTwSDFgn8Ln Q5XggGmrR54jyAomV47wRZ ExkRemtC5meOocsD1oLeOw YqEhYIzqpKkiMB3iWNHqT7 alvARbQOBkFRZaJ4tbMyPh fS6lqOvvAUstvtAeJECtBc b6ONMqzJAyUGPaOrj9ILWr QGWgG35zpwzrNHX6dB1zz3 auu9MmNQbpQSQ9JCNcr90r QCxcvuC7BJucNj7eFpTbBI H4HXfvSUH5dX== CPT Code(s) (test code a4kgnLRuRKEakKAvYcMhIO = 3357) QqPNJxx7mdDLVgcZItNnXc MzNcZnRuYmpcdWMxXGRlZm Rry3uwb407eTMuz6opJJRc TkJ5vUNnRLNnwYOhO109f8 kfs4ffdtRcjNP3IROqSSK3 EBopctEvhbJ6GSqxrJWoMy L2XVyegcXfZNoekvRhfyQm Gol2BGPvO555DFL6jGrgy9 baZHX7SALlJAZkIgLhJo1v pCWpD638PPZoYSUPVCYfyA t8FYCsdgRczfUqyAYTi936 L566m7dcUDJoppQacKhTdv syl8ggN077KGThhLCwonCk JyWgZDRmoZAklDO9PMSuII 3rxpzqMaBtXK8udrnrQsCu EW0hodd5BySfDI6tqeyhUs FaIHqvEFSscsexIUTqk7Ez bmekHI5xO9Cgf4M3kL1buR OjERYfeTJdBvSnQHEspo4w sMCsVHhro3RcBOW6hdE3yM PzrJUcDEFaHP33Uiybz1Uj QlsoLWC1KKVwtnRmz8Ayo7 rrRsJimlToB2ftF7WxIAIl HTYgLBHiOlWwyoVbh8Bbd0 TtfFChzAs0m7wpKHCfPDQr qWvvj9thGUT4ZOTvX8P1zT Mtn7axRChkQGPrqRG0gtap HNkgLSKrinV4stphKZqnVQ NlgFV6gzysLWbgWEQiAfR9 jfdzRYioMBQpHFQ2CMvwg0 42PPG1QNczGzwkUZqlLFIo bmNvbnRccGduZGVjXHBsYW luXHBsYWluXGYwXGZzMjRc bIrdnLirwT0hHcWyFePuPL boHL1qLOWcR9njsZHkDSFs LCHiZ3bwArOvsN9pyKtgUP bptdVmUVa1RoQ0AkI6BMWm XHBhcn0= CLINICAL HISTORY (test l6sqdJRpADMdwIPbTeShXJ code = 3355) ImAMIcj9utHSPthEEvUtRq MzNcZnRuYmpcdWMxXGRlZm Ymx6haz349oLDac7ovMZKa BsM7uXGfXOAtzVUeP064s3 wgf4plsdGycWF9FCGlQSK5 FAbpumOjftR6WNavnISyZo U8EAqylfBzNXnudqGtukCb Ami9KNBnU606QYA4fTliv8 unZCU7VLSeWCVnTsMtAh1v rBBfP679LAIuJFSZJXOqcT t5IPYldxCzieTnmGUWy214 Z792w6loOVFexqMtaErKus iio2bwW677PSZkmINckoOh GxAdQXDwlCEwoEP0IWDkXL 0diummKeLtGV7bptjbTsLp RM9udfh7XoQcQX6wdbkgNm CkTUotIVFxfcjcLGPog9Ld mluiXP7fS8Khz2S8nC0lpK NgVQFuhVDqIdBlCQGuol6r vCHzMAwdk9JwKDY1vxL6aH XibKKjGRFkEG54Eqdaq1Xm LvxjMNA3ZIDxklLkf0Jbi2 qlPrHancRfS8fhT6EcFLJk OILaJVJbItLwmrObb2Ejd9 DxdQAxcQv6p5heYHIrGWRl kLbid3lsJBF4FYUlC6Q4zS Hqd3utFTpbTQGlyUW0opxn JZrdINXekyE5wvivITrfYP JpwED2bthxPOojMQIsKkE7 emmeHBsoQBYnNHD2OAgbe5 92XBC0ARqcSsclJYsnGDZc bmNvbnRccGduZGVjXHBsYW luXHBsYWluXGYwXGZzMjRc aKujwGdruW5yOmFzDrCeRP hmJC0sARDlV9ibwQChDUAn CFPlK6qpWlLmqF4vhWcqVB kykiAjTJleu0Ing7axhXGw eQweFZuhtVFga0UmsGHoQV xwYXJ9 SPECIMEN SOURCE (test y3heaHTcCLZtxCWqFvFiJS code = 3377) BxHTNsb1jyKKZfqSJkJmPg MzNcZnRuYmpcdWMxXGRlZm Hsd0fte924wOKjg8egKYZo EkR4mMApGJArmKZyM475f6 xca5ghuhIqtRG2HYOaMJS6 UZpuxtWfslD0XSaquWIzOm E7GAulixAcVGmvsoQylsEq Pcp1CAAaB823RPH6cXjnk3 xoQXO4IYVoNWRmBrYkEm1y kRChR976NFUuEHLRBCHbfI k5AWZehoNrmmSadYARb669 B987o7hoQQWqlmYhuVyMzf mog5owS613OAHwtWCkmkCp EyEbFOHamPDqjQN4EILxDW 1gwbjxUpSxAE1xoklmIdTe UT5ygcj2ZkPyJT7csergKk RfSPotRUUsbrifKVYox3Uk dqctZW6kZ0Ksz6T4cN2qzZ RuLCDuoCVfBvWqQXFyxp3q hAYbNOgun3SpCAP8gcX6xP VdaGXhVZAaRD45Zcjtk1Jq MrdcYMU7JBErbzQha9Uwq9 xjInCvxsVxX5cjD6WmADAt SEJtQBDzEgPlqrKxn0Xqj8 FpaLMkdEp8x0pfVFTzLTTf tDrux2xbVIU6QTYiH3U9xP Zcl1kjECveOJGhyOQ6gnzb QPchJRLasxO2tbtxAAfwKR NjiUU4jjnpOAhjWHMbUvU4 mkhrTSapGGSfPWA3ZOivl4 82SEA1NRkgCdpcCVafSWRk bmNvbnRccGduZGVjXHBsYW luXHBsYWluXGYwXGZzMjRc oNrnyVveeL7wLzAmYjMwQL osDP9vGKBgX9kyhAZoGGCt GRVsW4uiRuHsmC4vuAczBY rqlkInXNX5a60yP3herATa fQ== GROSS DESCRIPTION (test w9hpeSGfATRzlMZvKtPlGS code = 3366) FbAXTjr2viEFUojIPkOdZf MzNcZnRuYmpcdWMxXGRlZm Cbc6idb184oIDnc7doBUZh ViR4uWIzZSKghONlV408RJ LmLDpdg7dtv1CkXFDhsKFv v4U0HOYGfmwzwRn1jBbrY0 9oj7Z1OwesV8lqSRUcKKuu RDMsKByqbCNtKLS0WTAjTV O3JBisxaWmeuL3UWwllFHx XwT1OAx5f2gtiTyhKHZkOY K5m1rxCWeevqFeKY1mjm3y eAm9u5ioifJjEKKxHHQqdU GBEOUnR6MiwMylCk0wyXf5 tJcqNikbEYP7Ddd3ZJ7yws 08grh2eJigVPUzbrbxQpT6 DPvyEPJozqrxGZs5DFjdAB JnbDcyMFxtYXJncjcyMFxt YXJndDcyMFxtYXJnYjcyMF jvNMVeIAK3TGvvc977XOG6 KMuyb9diy1becAWrWgl0IX WiMxHsCkwzCJctp7Tbm4yr RWHpkx9vHZW5aEDbhZsvx2 L5kAKaCYCekSLxonFzFNUm EmX6HRjiEQ5ldc83VDZfOT L3qq8phXCuaIsipgJweNOj YIbkU2LpVEJrv560SPUhB0 ZlWMGky6N9ptGoOzKiQCDm qWM4fjM5AINhZXh6xIUtqs E5lsGceLYdN7ognZ01KiSt lSGfM1ZqyH19SnUaqIUgN5 TbxV55MiIfbQWgD1MxiA55 EqHhoBAwRJYxrPRvCt7ruF JsmSMlk1GpqVUqVUnfJ56g v505FJNtkcEeE4pwlRCgxh xwbGFpblxmMFxmczIwXHFs XHBsYWluXGYwXGZzMjBccG lamS5uVnSuKqZwNCKCCeUh kEomqI4nXqPgDlNqLNCNKM GapVXnWUCzovUiq6QfVCmn biBsYWJlbGVkIHdpdGggdG jkSONleIwdpyOjvhGjQH1a FFUuW1Okl8Iqx44tygXfLe VyIGFuZFxwbGFpblxmMFxm avXbZUQqcwIgUZ1lPMpfo7 UapNOsJrjodTR8EcNunhRn tXlkXZMjMNUehsTxUaI6VZ 1es6lduWIpvU2yjzZvWG76 K49eLEvefNfmi3TzOOFkW3 yfqWGey0KskK5oLNDuYkS9 ZSWzYnQ0WBOcZzMltQ8lXP hlIHNwZWNpbWVuIGlzIHN1 Es5wnLAtZHJywnQ9q6XrOT ugDHIvr5GjePRmFOCfViPa TlcvcGxccGFyfQ== MICROSCOPIC DESCRIPTION t8thmUZrDNLxmAOdRkXpYD (test code = 3371) UuPFFbu4ucHHYpqAMpGbOr MzNcZnRuYmpcdWMxXGRlZm Vjf6uns566yCCqk4vaDETn ImI8iBKvHSSaqBQeD166k8 gss6avupCctNX1XXGkZWV6 FXwdifWnqkI9WQassFMmHs V4EVklqgFeKAokbcJehqTi Crd8UELsG518TWV6hGiug9 psRRR2XTYxAWJxNjXkMu9t jHJdU522YZEtRKWNXOOtpZ w7ZYIwhbTrjwKwtRLQh589 J244x9wqHPBothEkpHtGlj eql4kbV302DIRwtQNftqCk OdGkEUJysWKqbKC7GEVgCO 8waljkMyVlOQ4khfshDrMb SR2ppnr8DjOpOK0xqentMb SjAKzgWJWtkedyTGNnj1Px gjuhZJ3kN1Zpa3G8fU0vaN TjHNLjbKFuOeVcVAZpja4b lRYkQFvif4PiCRU2agN4rT OxqATeLJOnSD23Lhdmf7Uc AfebJAC1YBOucbYvh0Zbl3 bzMqHvhtLcX6uhX4PrQULq PFIlRRFwGcQqfwVge7Qnl8 EevQFucUu5a0psPBLwLFHm bInhb7mtMJP4HPAnI6P0dL Qni7yfBEpnFQMsnQT8tukh DZniAJUyiwA8tlwlRCsiHU IriMP0iiptQVmjZCZdTbW3 jcqoOHncSAKwWMT4YYugy9 47GVC1ENlnNnwgXPwfVALd bmNvbnRccGduZGVjXHBsYW luXHBsYWluXGYwXGZzMjRc cAltqOmujW3xKnAmCtUhDC xpDV2iZHIrU9tbdSJpKRXh WMVqF7qgHcBrtJ9cfWxqIV taunCuCNFRBeLOSx4XVAgk YXJ9 SPECIAL STUDIES (test g3bppQTfMHDagPRxPuHvHX code = 3376) MvPBLkj6ncQIMomLYwFwOn MzNcZnRuYmpcdWMxXGRlZm Nyk2ipj617rLNai4hoTKNo ClS0sSKuOPMuzBQjA279VP GjYFldk7cbn6PjOJFypNGf y1U7NNQOKLuaJeLcZ409AR JmLShgq4ucc0MuAUSwoHDz u7P2WLQQsrjgoHh2iGjuM3 0hw5O1LgwwD0ooQWVcRDLf Y6GtPW8pOREtStr1FLE9OY R9UHJuAIJcY1PjIH8rCYRk mINzMSc1j7zmjOteBOAeDN F8j3xaGObiviF6FY6fmo7f aBj2e4dzyhShXTAnPWWvwW BRREOdK9KivZlxFi4ngMg6 k6njCxkebsS8eIDiMdVpCi MyMFxsaTBccmkwIENvUGF0 qQXSNBl3J315p2muMGGpvv EsdIsNraqil7hhO006BAPn cGVydzEyMjQwXHBhcGVyaD Z3SFGsPH3ibwyeKkRvBI6u xdpmHkTfMC0kykq2WhTcRO 1hcmdiNzIwXGhlYWRlcnkw QFGxo0AfwfjqCP0lB9Tfp4 N8sW3csTVtFFQntIJvBuEh POFplc4zvLGlJPjzWJP2OF SnnqWvv3Ipo5bnJxVkduVk X6wqJ9AzZEPtGPMoUQIcPa UqzcAaq5Ifi5YomQZesAr7 m4rvICKsOSSkaQhbd2zuYI Y3LUPjI1F1xVVop3ouKAko BKZsmGN5okeyYZpgJMXtns U9giosHRnePCYevXU3efur UPvoDHRdWsK8nzucVRyrWW JhZFV1FSccr147OVT8PFia YmtwYWdlXHBnbmNvbnRccG duZGVjXHBsYWluXHBsYWlu XGYwXGZzMjRccWxccGxhaW 2gHdBxLfJyGojkWO3bJMCn J2ccsTHrSNEyMTXgY0beVt AfyC9foOsxPJozTvMfTyQo AhYLwUXoyC39VGCsolX1AN Llq85ai4ChoEqmriSiGWVs FYyoY5j3XCSoSRDzSIP4l7 Wjm4CymV3gyJ7yoTqdqE9j xSCpsZQ9rkgqp3Kky1FcA5 lhbCBzdGFpbnMuXHBsYWlu XGYxXGZzMjJcbGFuZzEwMz NcaGljaFxmMVxkYmNoXGYx MHvdW1tjKsXlB0LtIYFbYy KolHNgN7rgwMSeHHOzGQhi XGYxXGZzMjJcbGFuZzEwMz NcaGljaFxmMVxkYmNoXGYx BBltH6shMlEzB3HjCFRzPo WeT7XQTKwUFh9PTREBNpny lZqyeE2kSrEaAiLrZworSS 2iMDKfC6izgGZhXYKdJLNr E3ftAkIcfA0taAmqHZcqNv JcZnMyMlxsdHJjaFxwYXJc vWctsV3lAvRvJwVjMvmxOK 4yBRBkR1xknDMdPBFsERNf M0hcBlPxdM3viNqpWDbaWn DaAcSbZvXOt279cg1rPIHs pFWdbjCUrZExfW4tVSilVF yeZNuqcAGxRFawa2zdNWOn y5s4iGYvGVAaycXgh0xiGK dlcmUgZXZhbHVhdGVkIGFs k16jSQgaaWpaoLusANBac6 GghLyry2BrMrEgCQjsk8Uq N27qfHCbcIBbqTdcDKYhme ApAQLdk48jm0vzEPFtWoL2 sJMyfRD9bWCtkSAom9OmvA szDFPjv3nlEIRjdq9vlqdb mBIkl2CokP1ztnszHQugeN HwzpJqDGTmf7q7nQLrRCWf JDCvDDpzlGz5TGLzn027bf 4onzG6gBOfEJT1LUaeWKEf ZSBhcmUgZXZhbHVhdGVkXH BsYWluXGYxXGZzMjJcbGFu ZzEwMzNcaGljaFxmMVxkYm IaNGQrXClhU1dnAsQmB4Vz XVPyQyWhwNHnI6hmvFUiGV BsYWluXGYxXGZzMjJcbGFu ZzEwMzNcaGljaFxmMVxkYm TuWRLjJApoX4rxUaAaJ4Pj XGZzMjIgIFxwbGFpblxmMV xmczIyXGxhbmcxMDMzXGhp D1qyPlXaDSFujSwaQKbep9 NoXGYxXGNmMlxmczIyXGx0 cmNoXHBhclxwbGFpblxmMV xmczIyXGxhbmcxMDMzXGhp F2jpZnCtFZOfqJkfQNiki7 NoXGYxXGNmMlxmczIyIElt iFSpa1uts5MgF1rjoZtclL I5BDPrY8xkkLLdfEY3BJH6 tM8lYIivuxLhKCMus4SqBN TyHVNsTdR1zO9cOCV2NcYG dWtlXHBsYWluXGYxXGZzMj JcbGFuZzEwMzNcaGljaFxm MWghHoLaMCNtHKrtJ6jaYn SwY2BcLQWbYsIgrGveEAfv UNd6CftnwKShyggcXBhseg HfOCqlokclYYGyZHbcI6qu OhTxALNffDazPXoft8FjLK YxXGNmMlxmczIyIHMgTWVk gVEptUNXEP53BCEzQKKkhP zqwX6bjLCZPFGtwaX0b8S3 QEpxZLJbKCm8XCkkwcLiDP EznZ3nQJWyZC8aMQo3knRy YIAqu5LuEM4uTBCinQRdOI G9TTMmq0EqB6Nch0YoFBTp SXLycr0vufIpAuXQoRTfAW Nlnt89BSXdZD0sC6szMNIp PCSlqzVyqVNao3OjFXMfqS Y2sRNqLC9XOiBYn87qOEHk FEMYmlHqOLXmjUdibRA1iz S7vP2sYlLKxKGbIaHNADqd bjZtXSDcws0swaNnIPYxIY Vna6QgbYHoyXVhwwVkL5Oi k5JcFITcgm79DUtvyUJlzo 19KX2aL6Ble4KatU6aXRin BVDfi0IvsMXnhTRnDNHrw4 HgO2cadjbqQXatbBIixK0e ECCcARu6IFYkb2HvTAWyt9 QgYmUgcmVnYXJkZWQgYXMg cU85OZL6wTgsrNsejpRmIV 6mCGJzufXaWDVqQDYldK1g LHnfetBmSFLudsP2h5J5XG xiLGCkfqZmEltoTIZ9fhZx dpZ7iGVnL4apidpnBCkhRZ Dtk6DjmZ6luKZZwYDsu3Wn bGVtkSFEuESgVX1pzlBzQW 4tXEB5OUqjAGJSBSZaLLds RVMeYYI9DPylQjzwSDC3fy UkKLEpt8QlHNmpB0hmW27a tBptgAq3jVXldHtncMZttF IkRRMydzF0j7D8SRPdk7Pi bmcuXHBsYWluXGYyXGZzMj JcbGFuZzEwMzNcaGljaFxm IvlzAcSlIZJtESmpW9riHw JcZnMyMlxwYXJccGFyZFxw dCTyyjlyEFspjqN8NKRgBY luXGYyXGZzMjRccGFyfQ== [id number]:55:00Surgical Pathology Report Case: [id number] Authorizing Provider: Sherrell Alberto MD Collected: 10/08/2019 11:57 AM Ordering Location: [address] Received: 10/08/2019 01:34 PM Service Pathologist: Dawn Mcgrath MD Specimen: Biopsy, Gastric, random This addendum is issued to report the result of immunohistochemical study for Helicobacter pylori:- NEGATIVE The interpret ation of this case included the use of immunohistochemistry or special stains. HELICOBACTER PYLORIImmunohistochemistry technical testing was performed at [facility], Pathology Laboratory where it was developed and its performance characteristics were determined. It has not been cleared or approved by the U.S. Food and Drug Administration. The FDA has determined that such clearance or approval is not necessary. The test is used for clinical purposes. It should not be regarded asinvestigational or for research. This laboratory is certified under the Clinical Laboratory Improvement Amendments of 1988 (CLIA-88) as qualified to perform high complexity clinical laboratory testing.CPT CODE: 72104 Addendum electronically signed by Dawn Mcgrath MD on 10/10/2019 at 6:55 PMSTOMACH, RANDOM, ENDOSCOPIC BIOPSY: - ANTRAL TYPE GASTRIC MUCOSA WITH REACTIVE GASTROPATHY - OXYNTIC MUCOSA WITH MILD CHRONIC INFLAMMATION - NO DEFINITE HELICOBACTER PYLORI-LIKE ORGANISMS SEEN ON WARTHIN-STARRY STAIN - NO INTESTINAL METAPLASIA, DYSPLASIA OR MALIGNANCY NOTED - IMMUNOHISTOCHEMICALSTAIN FOR HELICOBACTER IS BEING DONE; RESULT WILL BE ISSUED IN AN ADDENDUM REPORT Signing Pathologist Direct Phone Line: [phone] signed by Dawn Mcgrath MD on 10/09/2019 at 2:11 [id number]; [id number] hemorrhagestomachA. Received in formalin labeled with the patient's name, accession number and "random gastric biopsy" are two pieces of branch-white to red mucosal tissue each measuring 0.3 x 0.3 x 0.3 cm. The specimen is submitted in toto in cassette A1. NW/plPERFORMEDThe interpretation of this case included the use of immunohistochemistry or special stains.WARTHIN-STARRYControl Slides Examined: In-house known positive controls were evaluated along withthe test tissue. These control slides run alongside of the patients sample show appropriate staining. Internal positive and negative controls when available are evaluated Immunohistochemistry technical testing was performed at [facility], Pathology Laboratory where it was developed and its performance characteristics were determined. It has not been cleared or approved by the U.S. Food and Drug Administration. The FDA has determined that such clearance or approval is not necessary. The test is used for clinical purposes. It should not be regarded as investigational or for rese arch. This laboratory is certified under the Clinical Laboratory Improvement Amendments of 1988 (CLIA-88) as qualified to perform high complexity clinical laboratory testing.[id number] 15:12:00 Test Item Value Reference Range Interpretation Comments Ceruloplasmin (test code 44 mg/dL 18-36 H = 20190330) MADAI (test code = MADAI) Performing Lab *[facility], [id number] [place] [phone] Alisha Silveira MD, PhD Lab Interpretation (test Abnormal code = 35717-0) [facility] 2019-10-10 15:00:00 Test Item Value Reference Range Interpretation Comments Result (test code = No growth in 5 days 6463-4) [facility] [id number] 15:00:00 Test Item Value Reference Range Interpretation Comments CULTURE (BEAKER) (test No growth in 5 days code = 1095) BLOOD [id number] 15:00:00 Test Item Value Reference Range Interpretation Comments CULTURE (BEAKER) (test No growth in 5 days code = 1095) Mitochondrial Ab [id number] 09:58:00 Test Item Value Reference Range Interpretation Comments Anti-Mitocho NEGATIVE NEGATIVE This test was developed nd Abs (test and its analyti horace code = performance ) characteristics havebeen determined by [facility].It h as not been cleared or approved by FDA. This as say has been validatedp ursuant to the CLIA reg ulations and is used for clinical purposes. MADAI (test Performing Lab code = MADAI) EZ ?[facility] [address] [place] [address] Gisella Parsons MD, PhD, AKASH [facility]Mitochond[facility] Ab [id number] 09:58:00 Test Item Value Reference Range Interpretation Comments Mitochondrial Ab TNP <1:20 Test Not Titer (test code = Performed . 20190728) Screening test Negative or Not Detected. Titer notperformed. MADIA (test code = Performing Lab MADAI) EZ [facility] [address] [place] [address] Gisella Parsons MD, PhD, AKASH [facility]PTT2020-09-[facility] 05:18:00 Test Item Value Reference Range Interpretation Comments PTT (test code = 79124-2) 78.6 22.5- 36.0 seconds H Lab Interpretation (test code = Abnormal 01178-8) [facility] 05:18:00 Test Item Value Reference Range Interpretation Comments PARTIAL THROMBOPLASTIN TIME 78.6 seconds 22.5-36.0 H (BEAKER) (test code = 760) CBC with platelet count + automated [id number] 05:12:00 Test Item Value Reference Range Interpretation Comments WBC (test code = 6690-2) 7.5 3.5- 10.5 K/L RBC (test code = 789-8) 3.87 4.63- 6.08 M/L L MCHC (test code = 786-4) 32.2 32.3- 36.5 GM/DL L Hematocrit (test code = 4544-3) 37.9 % 40.1-51 L MCV (test code = 787-2) 97.9 fL 79-92.2 H MCH (test code = 785-6) 31.5 pg 25.7-32.2 RDW (test code = 788-0) 13.2 % 11.6-14.4 Platelets (test code = 777-3) 365 150- 450 K/CU MM MPV (test code = 90635-9) 9.6 fL 9.4-12.4 nRBC (test code = 413) 0 0- 0 /100 WBC % Neutros (test code = 429) 53 % % Lymphs (test code = 430) 33 % % Monos (test code = 431) 11 % % Eos (test code = 432) 4 % % Baso (test code = 437) 0 % # Neutros (test code = 670) 3.95 1.78- 5.38 K/L # Lymphs (test code = 414) 2.45 1.32- 3.57 K/L # Monos (test code = 415) 0.79 0.30- 0.82 K/L # Eos (test code = 416) 0.28 0.04- 0.54 K/L # Baso (test code = 417) 0.03 0.01- 0.08 K/L Immature Granulocytes-Relative 0 % 0-1 (test code = 2801) Lab Interpretation (test code = Abnormal 60986-3) [facility] W/PLT COUNT & AUTO [id number] 05:12:00 Test Item Value Reference Range Interpretation Comments WHITE BLOOD CELL COUNT (BEAKER) 7.5 K/ L 3.5-10.5 (test code = 775) RED BLOOD CELL COUNT (BEAKER) 3.87 M/ L 4.63-6.08 L (test code = 761) HEMOGLOBIN (BEAKER) (test code = 12.2 GM/DL 13.7-17.5 L 410) HEMATOCRIT (BEAKER) (test code = 37.9 % 40.1-51.0 L 411) MEAN CORPUSCULAR VOLUME (BEAKER) 97.9 fL 79.0-92.2 H (test code = 753) MEAN CORPUSCULAR HEMOGLOBIN 31.5 pg 25.7-32.2 (BEAKER) (test code = 751) MEAN CORPUSCULAR HEMOGLOBIN CONC 32.2 GM/DL 32.3-36.5 L (BEAKER) (test code = 752) RED CELL DISTRIBUTION WIDTH 13.2 % 11.6-14.4 (BEAKER) (test code = 412) PLATELET COUNT (BEAKER) (test 365 K/CU MM 150-450 code = 756) MEAN PLATELET VOLUME (BEAKER) 9.6 fL 9.4-12.4 (test code = 754) NUCLEATED RED BLOOD CELLS 0 /100 WBC 0-0 (BEAKER) (test code = 413) NEUTROPHILS RELATIVE PERCENT 53 % (BEAKER) (test code = 429) LYMPHOCYTES RELATIVE PERCENT 33 % (BEAKER) (test code = 430) MONOCYTES RELATIVE PERCENT 11 % (BEAKER) (test code = 431) EOSINOPHILS RELATIVE PERCENT 4 % (BEAKER) (test code = 432) BASOPHILS RELATIVE PERCENT 0 % (BEAKER) (test code = 437) NEUTROPHILS ABSOLUTE COUNT 3.95 K/ L 1.78-5.38 (BEAKER) (test code = 670) LYMPHOCYTES ABSOLUTE COUNT 2.45 K/ L 1.32-3.57 (BEAKER) (test code = 414) MONOCYTES ABSOLUTE COUNT (BEAKER) 0.79 K/ L 0.30-0.82 (test code = 415) EOSINOPHILS ABSOLUTE COUNT 0.28 K/ L 0.04-0.54 (BEAKER) (test code = 416) BASOPHILS ABSOLUTE COUNT (BEAKER) 0.03 K/ L 0.01-0.08 (test code = 417) IMMATURE GRANULOCYTES-RELATIVE 0 % 0-1 PERCENT (BEAKER) (test code = 2801) [id number] 22:20:00 Test Item Value Reference Range Interpretation Comments PARTIAL THROMBOPLASTIN TIME 77.9 seconds 22.5-36.0 H (BEAKER) (test code = 760) [id number] 15:50:00 Test Item Value Reference Range Interpretation Comments PARTIAL THROMBOPLASTIN TIME 76.8 seconds 22.5-36.0 H (BEAKER) (test code = 760) CT, ABDOMEN, [id number] 14:25:00Unlisted Reason for Exam - Click Yes and Enter Reason Below->YesUnlisted Reason for Exam->liver mass - triple phase liver protocolFINAL REPORT CT of the abdomen, with and without contrast Clinical History:Unlisted Reason for Examliver mass - triple phase liver protocol Technique: CT of the abdomen is performed before and after intravenous contrast administration. This exam was performed according to our departmental dose optimization program which includes automated exposure control, adjustment of themA and/or kV according to patient's size and/or use of iterative reconstructive technique. Comparison Film: October 07, 2019 Discussion: Visualized lower thorax is unremarkable. Liver is heterogeneously fatty. In segment 7, there is a 2.5 cm lesion that demonstrates peripheral nodular enhancement, andretention of contrast in the delayed phase, most compatible with a hemangioma. 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 No biliary ductal dilatation, gallbladder is normal. 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 Spleen, pancreas, adrenal glands are normal. Kidneys demonstrate no hydronephrosis, radiopaque stone, or mass. No evidence of bowelobstruction. No ascites or adenopathy. No suspicious bony lesion is identified. Impression: Hepatic steatosis. Two enhancing liver lesions as described, most likely to represent hemangiomas. If more definitive characterization is desired, MR correlation can be considered. Thrombosis of the portal, splenic and superior mesenteric veins. Signed: Monty Elias Verified Date/Time: 10/09/2019 14:25:15 Reading Location: [facility] C013X Ortho Consult Reading Room CT abdomen without & with IV [id number] 14:25:00Interface, External Ris In - 10/09/2019 2:[address] of the abdomen, with and without contrast Clinical History: Unlisted Reason for Examliver mass - triple phase liver protocol Technique: CT of the abdomen is performed before and after intravenous contrast administration. This exam was performed according to our departmental dose optimization program which includes automated exposure control, adjustment of the mA and/or kV according to patient's size and/or use of iterative reconstructive technique. Comparison Film: October 07, 2019 Discussion: Visualized lower thorax is unremarkable. Liver is heterogeneously fatty. In segment 7, there is a 2.5 cm lesion that demonstrates peripheral nodular enhancement, and retention of contrast in the delayed phase, mostcompatible with a hemangioma. 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 No biliary ductal dilatation, gallbladder is normal. 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 Spleen, pancreas, adrenal glands are normal. Kidneys demonstrate no hydronephrosis, radiopaque stone, or mass. No evidence of bowel obstruction. No ascites or adenopathy. No suspicious bony lesion is identified. Impression: Hepatic steatosis. Two enhancing liver lesions as described, most likely to represent hemangiomas. If more definitive characterization is desired, MR correlation can be considered. Thrombosis of the portal, splenic and superior mesenteric veins. Signed: Monty Elias Verified Date/Time: 10/09/2019 14:25:15 Reading Location: [facility] C013X [facility]o Consult Reading [facility] 07:24[facility]00 Test Item Value Reference Range Interpretation Comments PARTIAL THROMBOPLASTIN TIME 114.9 seconds 22.5-36.0 H (BEAKER) (test code = 760) Basic Metabolic [id number] 07:18:00 Test Item Value Reference Range Interpretation Comments Sodium (test code = 140 meq/L 757-441 7994-2) Potassium (test 3.5 meq/L 3.5-5.1 code = 2823-3) Chloride (test code 105 meq/L 98-107 = 2075-0) CO2 (test code = 27 meq/L 22-29 8-9) BUN (test code = 9 mg/dL 7-21 3094-0) Creatinine (test 0.79 mg/dL 0.57-1.25 code = 2160-0) Glucose (test code 102 mg/dL 70-105 = 2345-7) Calcium (test code 8.7 mg/dL 8.4-10.2 = 39906-1) EGFR (test code = 112 mL/min/1.73 [place] [address]-8) NOT ACCURATE CREATININE CLEARANCE IN PREDICTING GLOMERULAR FILTRATION RATE . ESTIMATED GFR I S NOT APPLICABLE FOR DIALYSIS PATIEN TS. AJ (test code = Crib Tender ID - MADAI) [facility] METABOLIC [id number] 07:18:00 Test Item Value Reference Range Interpretation Comments SODIUM (BEAKER) 140 meq/L 136-145 (test code = 381) POTASSIUM (BEAKER) 3.5 meq/L 3.5-5.1 (test code = 379) CHLORIDE (BEAKER) 105 meq/L 98-107 (test code = 382) CO2 (BEAKER) (test 27 meq/L 22-29 code = 355) BLOOD UREA NITROGEN 9 mg/dL 7-21 (BEAKER) (test code = 354) CREATININE (BEAKER) 0.79 mg/dL 0.57-1.25 (test code = 358) GLUCOSE RANDOM 102 mg/dL 70-105 (BEAKER) (test code = 652) CALCIUM (BEAKER) 8.7 mg/dL 8.4-10.2 (test code = 697) EGFR (BEAKER) (test 112 mL/min/1.73 ESTIM ATED GFR IS code = 1092) sq m NOT ACCURATE CREATININE CLEARANCE IN PREDICTING GLOMERULAR FILTRATION RATE . ESTIMATED GFR I S NOT APPLICABLE FOR DIALYSIS PATIEN TS. Crib Tender ID - NTPBeta 2 [id number] 07:12:00 Test Item Value Reference Range Interpretation Comments B2 1.8 mg/L < OR = 2.51 This test was performed Microglobuli using the Abbot t n, Serum Immunoturbidime tric (test code = method. Valueso btained [id number]) from different assay methods cannot be used interchangeably . Beta-2Microglob ulin levels, regardl ess of value, should n ot be interpreted asa bsolute evidence of the presence or absence of d isease. MADAI (test Performing Lab code = MADAI) EZ [facility] [address] [place] [address] Gisella Parsons MD, PhD, AKASH [facility] W/PLT COUNT & AUTO [id number] 06:42:00 Test Item Value Reference Range Interpretation Comments WHITE BLOOD CELL COUNT (BEAKER) 7.2 K/ L 3.5-10.5 (test code = 775) RED BLOOD CELL COUNT (BEAKER) 3.69 M/ L 4.63-6.08 L (test code = 761) HEMOGLOBIN (BEAKER) (test code = 11.8 GM/DL 13.7-17.5 L 410) HEMATOCRIT (BEAKER) (test code = 36.5 % 40.1-51.0 L 411) MEAN CORPUSCULAR VOLUME (BEAKER) 98.9 fL 79.0-92.2 H (test code = 753) MEAN CORPUSCULAR HEMOGLOBIN 32.0 pg 25.7-32.2 (BEAKER) (test code = 751) MEAN CORPUSCULAR HEMOGLOBIN CONC 32.3 GM/DL 32.3-36.5 (BEAKER) (test code = 752) RED CELL DISTRIBUTION WIDTH 13.4 % 11.6-14.4 (BEAKER) (test code = 412) PLATELET COUNT (BEAKER) (test 327 K/CU MM 150-450 code = 756) MEAN PLATELET VOLUME (BEAKER) 9.3 fL 9.4-12.4 L (test code = 754) NUCLEATED RED BLOOD CELLS 0 /100 WBC 0-0 (BEAKER) (test code = 413) NEUTROPHILS RELATIVE PERCENT 49 % (BEAKER) (test code = 429) LYMPHOCYTES RELATIVE PERCENT 37 % (BEAKER) (test code = 430) MONOCYTES RELATIVE PERCENT 10 % (BEAKER) (test code = 431) EOSINOPHILS RELATIVE PERCENT 4 % (BEAKER) (test code = 432) BASOPHILS RELATIVE PERCENT 0 % (BEAKER) (test code = 437) NEUTROPHILS ABSOLUTE COUNT 3.53 K/ L 1.78-5.38 (BEAKER) (test code = 670) LYMPHOCYTES ABSOLUTE COUNT 2.67 K/ L 1.32-3.57 (BEAKER) (test code = 414) MONOCYTES ABSOLUTE COUNT (BEAKER) 0.69 K/ L 0.30-0.82 (test code = 415) EOSINOPHILS ABSOLUTE COUNT 0.25 K/ L 0.04-0.54 (BEAKER) (test code = 416) BASOPHILS ABSOLUTE COUNT (BEAKER) 0.03 K/ L 0.01-0.08 (test code = 417) IMMATURE GRANULOCYTES-RELATIVE 0 % 0-1 PERCENT (BEAKER) (test code = 2801) [id number] 01:23:00 Test Item Value Reference Range Interpretation Comments PARTIAL THROMBOPLASTIN TIME 90.1 seconds 22.5-36.0 H (BEAKER) (test code = 760) Carcinoembryonic Antigen (CEA)2019-10-08 18:48:00 Test Item Value Reference Range Interpretation Comments CEA, SERUM (test code = 2.2 ng/mL 0-5 2039-6) MADAI (test code = MADAI) Crib Tender ID - BS Lab Interpretation (test Normal code = 33883-5) [facility] [id number] 18:48:00 Test Item Value Reference Range Interpretation Comments Alpha-Fetoprotein (test code 2.1 ng/mL <10.0 = 1834-1) MADAI (test code = MADAI) Crib Tender ID - BS Lab Interpretation (test Normal code = 88496-5) [facility]2019-10-08 18:48:00 Test Item Value Reference Range Interpretation Comments CARCINOEMBRYONIC ANTIGEN (BEAKER) 2.2 ng/mL 0.0-5.0 (test code = 685) Crib Tender ID - BSALPHA FETOPROTEIN (AFP), TUMOR [id number] 18:48:00 Test Item Value Reference Range Interpretation Comments ALPHA-FETOPROTEIN (BEAKER) (test 2.1 ng/mL <10.0 code = 1094) Crib Tender ID - [id number] 18:31:00 Test Item Value Reference Range Interpretation Comments PARTIAL THROMBOPLASTIN TIME 36.8 seconds 22.5-36.0 H (BEAKER) (test code = 760) Anti-Nuclear Antibody (HERON)2019-10-08 13:01:00 Test Item Value Reference Range Interpretation Comments HERON (test code = 26627-2) Negative Negative MADAI (test code = MADAI) Test performed by IFA method.Test performed by IFA method. Lab Interpretation (test Normal code = 57141-3) [facility]2019[facility]10-08 13:01:00 Test Item Value Reference Range Interpretation Comments ANTI-NUCLEAR ANTIBODY (HERON) (BEAKER) Negative Negative (test code = 418) Test performed by IFA method.Test performed by IFA method.Cardiolipin Antibodies, IgG and [id number] 10:56:00 Test Item Value Reference Range Interpretation Comments Anticardiolipin IgG <1.6 <20.0 GPL (test code = 3181-5) Anticardiolipin IgM 0.3 <20.0 MPL (test code = 3182-3) MADAI (test code = MADAI) Anticardiolipin IgG Result Interpretation: <20.0 GPL Normal>/= 20.0 GPL Positive Anticardiolipin IgM Result Interpretation: <20.0 MPL Normal>/= 20.0 MPL Positive Lab Interpretation Normal (test code = 76164-4) [facility], IGG AND [id number] 10:56:00 Test Item Value Reference Range Interpretation Comments ANTICARDIOLIPIN IGG ANTIBODY (BEAKER) < GPL <20.0 (test code = 712) ANTICARDIOLIPIN IGM ANTIBODY (BEAKER) 0.3 MPL <20.0 (test code = 713) Anticardiolipin IgG Result Interpretation: <20.0 GPL Normal>/= 20.0 GPL PositiveAnticardiolipin IgM Result Interpretation: <20.0 MPL Normal>/= 20.0 MPL PositiveABORH, [id number] 06:25:00 Test Item Value Reference Range Interpretation Comments ABO Grouping (test code = 2588) O Rh Factor (test code = 2589) POS [facility]-1-wkutjlmkzpb7816-04-56 05:17:00 Test Item Value Reference Range Interpretation Comments A-1 Antitrypsin (test code = >300.00 90-200 H 1825-9) MADAI (test code = MADAI) Crib Tender ID - DB Lab Interpretation (test Abnormal code = 19196-1) [facility]ALPHA-1-[id number] 05:17:00 Test Item Value Reference Range Interpretation Comments ALPHA-1 ANTITRYPSIN (BEAKER) (test > mg/dL 90.00-200.00 H code = 502) Crib Tender ID - DBType and screen, [id number] 05:06:00 Test Item Value Reference Range Interpretation Comments ABO/RH AUTOMATED (BEAKER) (test O POSITIVE code = 2260) Ab Scrn (test code = 890-4) NEGATIVE [facility]IC [facility]OLIC [id number] 04:49:00 Test Item Value Reference Range Interpretation Comments SODIUM (BEAKER) 139 meq/L 136-145 (test code = 381) POTASSIUM (BEAKER) 3.7 meq/L 3.5-5.1 (test code = 379) CHLORIDE (BEAKER) 105 meq/L 98-107 (test code = 382) CO2 (BEAKER) (test 25 meq/L 22-29 code = 355) BLOOD UREA NITROGEN 5 mg/dL 7-21 L (BEAKER) (test code = 354) CREATININE (BEAKER) 0.77 mg/dL 0.57-1.25 (test code = 358) GLUCOSE RANDOM 106 mg/dL 70-105 H (BEAKER) (test code = 652) CALCIUM (BEAKER) 9.0 mg/dL 8.4-10.2 (test code = 697) EGFR (BEAKER) (test 116 mL/min/1.73 ESTIM ATED GFR IS code = 1092) sq m NOT ACCURATE CREATININE CLEARANCE IN PREDICTING GLOMERULAR FILTRATION RATE . ESTIMATED GFR I S NOT APPLICABLE FOR DIALYSIS PATIEN TS. Crib Tender ID - EDASIProthrombin time/[id number] 04:32:00 Test Item Value Reference Range Interpretation Comments Protime (test code = 17.2 11.9- 14.2 H 5902-2) seconds INR (test code = 1.45 <=5.90 6301-6) MADAI (test code = MADAI) Effective 07/04/2018: PT Reference Range ChangeNew: 11.9-14.2 Previous: 11.7-14.7 RECOMMENDED COUMADIN/WARFARIN INR THERAPY RANGESSTANDARD DOSE: 2.0-3.0 Includes: PROPHYLAXIS for venous thrombosis, systemic embolization; TREATMENT for venous thrombosis and/or pulmonary embolus.HIGH RISK: Target INR is 2.5-3.5 for patients wiht mechanical heart valves. Lab Interpretation Abnormal (test code = 94722-3) [facility] CampusPROTHROMBIN TIME/[id number] 04:32:00 Test Item Value Reference Range Interpretation Comments PROTIME (BEAKER) (test code = 17.2 seconds 11.9-14.2 H 759) INR (BEAKER) (test code = 370) 1.45 <=5.90 Effective 07/04/2018: PT Reference Range ChangeNew: 11.9-14.2 Previous: 11.7- 14.7RECOMMENDED COUMADIN/WARFARIN INR THERAPY RANGESSTANDARD DOSE: 2.0-3.0 Includes: PROPHYLAXIS for venous thrombosis, systemic embolization; TREATMENT for venous thrombosis and/or pulmonary embolus.HIGH RISK: Target INR is2.5-3.5 for patients wiht mechanical heart valves.CBC W/PLT COUNT & AUTO [id number] 04:15:00 Test Item Value Reference Range Interpretation Comments WHITE BLOOD CELL COUNT (BEAKER) 6.9 K/ L 3.5-10.5 (test code = 775) RED BLOOD CELL COUNT (BEAKER) 4.14 M/ L 4.63-6.08 L (test code = 761) HEMOGLOBIN (BEAKER) (test code = 13.2 GM/DL 13.7-17.5 L 410) HEMATOCRIT (BEAKER) (test code = 40.7 % 40.1-51.0 411) MEAN CORPUSCULAR VOLUME (BEAKER) 98.3 fL 79.0-92.2 H (test code = 753) MEAN CORPUSCULAR HEMOGLOBIN 31.9 pg 25.7-32.2 (BEAKER) (test code = 751) MEAN CORPUSCULAR HEMOGLOBIN CONC 32.4 GM/DL 32.3-36.5 (BEAKER) (test code = 752) RED CELL DISTRIBUTION WIDTH 13.1 % 11.6-14.4 (BEAKER) (test code = 412) PLATELET COUNT (BEAKER) (test 333 K/CU MM 150-450 code = 756) MEAN PLATELET VOLUME (BEAKER) 9.4 fL 9.4-12.4 (test code = 754) NUCLEATED RED BLOOD CELLS 0 /100 WBC 0-0 (BEAKER) (test code = 413) NEUTROPHILS RELATIVE PERCENT 57 % (BEAKER) (test code = 429) LYMPHOCYTES RELATIVE PERCENT 30 % (BEAKER) (test code = 430) MONOCYTES RELATIVE PERCENT 8 % (BEAKER) (test code = 431) EOSINOPHILS RELATIVE PERCENT 3 % (BEAKER) (test code = 432) BASOPHILS RELATIVE PERCENT 0 % (BEAKER) (test code = 437) NEUTROPHILS ABSOLUTE COUNT 3.98 K/ L 1.78-5.38 (BEAKER) (test code = 670) LYMPHOCYTES ABSOLUTE COUNT 2.11 K/ L 1.32-3.57 (BEAKER) (test code = 414) MONOCYTES ABSOLUTE COUNT (BEAKER) 0.58 K/ L 0.30-0.82 (test code = 415) EOSINOPHILS ABSOLUTE COUNT 0.22 K/ L 0.04-0.54 (BEAKER) (test code = 416) BASOPHILS ABSOLUTE COUNT (BEAKER) 0.02 K/ L 0.01-0.08 (test code = 417) IMMATURE GRANULOCYTES-RELATIVE 0 % 0-1 PERCENT (BEAKER) (test code = 2801) [id number] 21:07:00 Test Item Value Reference Range Interpretation Comments Lipase (test code = 3040-3) 33 U/L 8- MADAI (test code = MADAI) Crib Tender ID - BS Lab Interpretation (test Normal code = 14114-8) [facility]LIPASE2020-08-31 21:07:00 Test Item Value Reference Range Interpretation Comments LIPASE (BEAKER) (test code = 749) 33 U/L 8-78 Crib Tender ID - [id number] 21:00:00 Test Item Value Reference Range Interpretation Comments PARTIAL THROMBOPLASTIN TIME 32.6 seconds 22.5-36.0 (BEAKER) (test code = 760) [id number] 17:51:00 Test Item Value Reference Range Interpretation Comments PARTIAL THROMBOPLASTIN TIME > seconds 22.5-36.0 HH (BEAKER) (test code = 760) CT, [id number] 17:51:00Unlisted Reason for Exam - Click Yes and Enter Reason Below->YesUnlisted Reason for Exam->smv thrombosis, cirrhosis eval FINAL REPORT TECHNIQUE: CT of the abdomen and pelvis WITH intravenous contrast and WITHOUT oral contrast. Dose modulation, iterative reconstruction, and/or weight-based adjustment of the mA/kV was utilized to reduce the radiation dose to as low as reasonably achievable. INDICATION: SMV thrombosis. COMPARISON: None. FINDINGS: LOWER THORAX: Trace right-sided pleural effusion.. HEPATOBILIARY: Large geographic areas of decreased attenuation throughout the liver most prominent within segment five consistent with hepatic steatosis. 2.1 x 1.4 x 3.5 cm enhancing lesion within segment seven of the liver. (Axial image 25)... Gallbladder is unremarkable. No biliary ductal dilatation.SPLEEN: No splenomegaly.PANCREAS: No focal masses or ductal dilatation. ADRENALS: No adrenal nodules.KIDNEYS/URETERS: No hydronephrosis, stones, or solid mass lesions.PELVIC ORGANS/BLADDER: Unremarkable. PERITONEUM/RETROPERITONEUM: Small volume pelvic ascites. No focal fluid collection or free air..LYMPH NODES: No lymphadenopathy.VESSELS: Extensive thrombosis of the portal veins, splenic vein and and superior mesenteric vein. There is associated mesenteric fat stranding. No abnormal bowel wall thickening. There are portal vein collaterals. There are small perisplenic and perigastric collaterals. GI TRACT: No distention or wall thickening. No pneumatosis. Appendix is normal. BONES AND SOFT TISSUES: Unremarkable. 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 There are perisplenic and periportal collaterals. Geographic areas of steatosis in the liver with indeterminate 3.5 cm enhancing lesion within segment seven of the liver. Further evaluation with liver MRI is recommended. Small volume free pelvic fluid. Trace right-sided pleural effusion. Signed: Ritesh Casasort Verified Date/Time: 10/07/2019 17:51:12 Reading Location: [facility] B1 C013Y CT Body Reading Room CT abdomen/pelvis with IV [id number] 17:51:00Interface, External Ris In - 10/07/2019 5:53 PM CDTFINAL REPORT TECHNIQUE: CT of the abdomen and pelvis WITH intravenous contrast and WITHOUT oral contrast. Dose modulation, iterative reconstruction, and/or weight-based adjustment of the mA/kV was utilized to reduce the radiation dose to as low as reasonably achievable. INDICATION: SMV thrombosis. COMPARISON: None. FINDINGS: LOWER THORAX: Trace right-sided pleural effusion.. HEPATOBILIARY: Large geographic areas of decreasedattenuation throughout the liver most prominent within segment five consistent with hepatic steatosis. 2.1 x 1.4 x 3.5 cm enhancing lesion within segment seven of the liver. (Axial image 25)... Gallbladder is unremarkable. No biliary ductal dilatation.SPLEEN: No splenomegaly.PANCREAS: No focal masses or ductal dilatation. ADRENALS: No adrenal nodules.KIDNEYS/URETERS: No hydronephrosis, stones, or solid mass lesions.PELVIC ORGANS/BLADDER: Unremarkable. PERITONEUM/RETROPERITONEUM: Small volume pelvic ascites. No focal fluid collection or free air..LYMPH NODES: No lymphadenopathy.VESSELS: Extensive thrombosis of the portal veins, splenic vein and and superior mesenteric vein. There is associated mesenteric fat stranding. No abnormal bowel wall thickening. There are portal vein collaterals. There are small perisplenic and perigastric collaterals. GI TRACT: No distention or wall thickening. No pneumatosis. Appendix is normal. BONES AND SOFT TISSUES: Unremarkable. 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 There are perisplenic and per iportal collaterals. Geographic areas of steatosis in the liver with indeterminate 3.5 cm enhancing lesion within segment seven of the liver. Further evaluation with liver MRI is recommended. Small volume free pelvic fluid. Trace right-sided pleural effusion. Signed: Ritesh Casas MDReport Verified Date/Time: 10/07/2019 17:51:12 Reading Location: [facility] B1 C013Y CT Body Reading Room [facility], TIBC, % sat. (without ferritin)2019-10-07 17:15:00 Test Item Value Reference Range Interpretation Comments Iron (test code = 2498-4) 21.0 ug/dL 40-160 L TIBC (test code = 2500-7) 255 ug/dL 250-450 Iron % Saturation (test code 8 % 20-55 L = 2502-3) MADAI (test code = MADAI) Crib Tender ID - BS Lab Interpretation (test Abnormal code = 21932-6) [facility], TIBC, % SAT. (WITHOUT FERRITIN)2019-10-07 17:15:00 Test Item Value Reference Range Interpretation Comments IRON (BEAKER) (test code = 547) 21.0 ug/dL 40.0-160.0 L TOTAL IRON BINDING CAPACITY 255 ug/dL 250-450 (BEAKER) (test code = 769) IRON % SATURATION (2) (BEAKER) 8 % 20-55 L (test code = 2590) Crib Tender ID - BSLactic acid, [id number] 17:14:00 Test Item Value Reference Range Interpretation Comments Lactate, Venous (test 1.36 mmol/L 0.5-2.2 Specim en code = 2872) markedly hemolyzed MADAI (test code = MADAI) Crib Tender ID - BS Lab Interpretation Normal (test code = 82713-3) [facility]LACT[facility] ACID, [id number] 17:14:00 Test Item Value Reference Range Interpretation Comments LACTATE BLOOD VENOUS 1.36 mmol/L 0.50-2.20 Specime n markedly (2) (BEAKER) (test hemolyzed code = 2872) Crib Tender ID - [id number] 15:20:00 Test Item Value Reference Range Interpretation Comments Ferritin (test code = 410.84 ng/mL 5-275 H 2276-4) MADAI (test code = MADAI) Crib Tender ID - BS Lab Interpretation (test Abnormal code = 27553-6) [facility]FERRITIN2020-08-31 15:20:00 Test Item Value Reference Range Interpretation Comments FERRITIN (BEAKER) (test code = 410.84 ng/mL 5.00-275.00 H 361) Crib Tender ID - [id number] 11:49:00 Test Item Value Reference Range Interpretation Comments PARTIAL THROMBOPLASTIN TIME 34.4 seconds 22.5-36.0 (BEAKER) (test code = 760) BASIC METABOLIC [id number] 02:45:00 Test Item Value Reference Range Interpretation Comments SODIUM (BEAKER) 139 meq/L 136-145 (test code = 381) POTASSIUM (BEAKER) 3.6 meq/L 3.5-5.1 (test code = 379) CHLORIDE (BEAKER) 105 meq/L 98-107 (test code = 382) CO2 (BEAKER) (test 23 meq/L 22-29 code = 355) BLOOD UREA NITROGEN 5 mg/dL 7-21 L (BEAKER) (test code = 354) CREATININE (BEAKER) 0.72 mg/dL 0.57-1.25 (test code = 358) GLUCOSE RANDOM 105 mg/dL 70-105 (BEAKER) (test code = 652) CALCIUM (BEAKER) 8.7 mg/dL 8.4-10.2 (test code = 697) EGFR (BEAKER) (test 125 mL/min/1.73 ESTIM ATED GFR IS code = 1092) sq m NOT ACCURATE CREATININE CLEARANCE IN PREDICTING GLOMERULAR FILTRATION RATE . ESTIMATED GFR I S NOT APPLICABLE FOR DIALYSIS PATIEN TS. Crib Tender ID - PIAYA [id number] 02:30:00 Test Item Value Reference Range Interpretation Comments PARTIAL THROMBOPLASTIN TIME 47.6 seconds 22.5-36.0 H (BEAKER) (test code = 760) CBC W/PLT COUNT & AUTO [id number] 02:09:00 Test Item Value Reference Range Interpretation Comments WHITE BLOOD CELL COUNT (BEAKER) 7.9 K/ L 3.5-10.5 (test code = 775) RED BLOOD CELL COUNT (BEAKER) 3.76 M/ L 4.63-6.08 L (test code = 761) HEMOGLOBIN (BEAKER) (test code = 12.1 GM/DL 13.7-17.5 L 410) HEMATOCRIT (BEAKER) (test code = 36.8 % 40.1-51.0 L 411) MEAN CORPUSCULAR VOLUME (BEAKER) 97.9 fL 79.0-92.2 H (test code = 753) MEAN CORPUSCULAR HEMOGLOBIN 32.2 pg 25.7-32.2 (BEAKER) (test code = 751) MEAN CORPUSCULAR HEMOGLOBIN CONC 32.9 GM/DL 32.3-36.5 (BEAKER) (test code = 752) RED CELL DISTRIBUTION WIDTH 13.2 % 11.6-14.4 (BEAKER) (test code = 412) PLATELET COUNT (BEAKER) (test 284 K/CU MM 150-450 code = 756) MEAN PLATELET VOLUME (BEAKER) 9.7 fL 9.4-12.4 (test code = 754) NUCLEATED RED BLOOD CELLS 0 /100 WBC 0-0 (BEAKER) (test code = 413) NEUTROPHILS RELATIVE PERCENT 63 % (BEAKER) (test code = 429) LYMPHOCYTES RELATIVE PERCENT 24 % (BEAKER) (test code = 430) MONOCYTES RELATIVE PERCENT 10 % (BEAKER) (test code = 431) EOSINOPHILS RELATIVE PERCENT 3 % (BEAKER) (test code = 432) BASOPHILS RELATIVE PERCENT 0 % (BEAKER) (test code = 437) NEUTROPHILS ABSOLUTE COUNT 4.95 K/ L 1.78-5.38 (BEAKER) (test code = 670) LYMPHOCYTES ABSOLUTE COUNT 1.90 K/ L 1.32-3.57 (BEAKER) (test code = 414) MONOCYTES ABSOLUTE COUNT (BEAKER) 0.75 K/ L 0.30-0.82 (test code = 415) EOSINOPHILS ABSOLUTE COUNT 0.22 K/ L 0.04-0.54 (BEAKER) (test code = 416) BASOPHILS ABSOLUTE COUNT (BEAKER) 0.03 K/ L 0.01-0.08 (test code = 417) IMMATURE GRANULOCYTES-RELATIVE 0 % 0-1 PERCENT (BEAKER) (test code = 2806) [id number] 19:06:00 Test Item Value Reference Range Interpretation Comments PARTIAL THROMBOPLASTIN TIME 35.5 seconds 22.5-36.0 (BEAKER) (test code = 760) [id number] 13:01:00 Test Item Value Reference Range Interpretation Comments PARTIAL THROMBOPLASTIN TIME 33.7 seconds 22.5-36.0 (BEAKER) (test code = 760) SARS-CoV2/RT-PCR (Symptomatic ONLY)2019-10-06 07:44:00 Test Item Value Reference Range Interpretation Comments SARS-COV2/RT-PCR Negative Not Detected, (test code = Negative, See 38382-1) external report for linked test SARS-COV-2 [facility] PERFORMING LAB (test code = 29856-6) MADAI (test code = Negative result for this MADAI) test determines that SARS-CoV-2 RNA was not present in the specimen above the Limit of Detection (LOD). However, Negative results do not preclude SARS-CoV-2 infection and should not be used as the sole basis for treatment or patient management decisions. Negative results must be combined with clinical observations, patient history, and epidemiological information. A false negative result may occur if a specimen is improperly collected, transported or handled. A false negative result should be considered if patient's recent exposures or clinical presentation indicate that COVID-19 (SARS-CoV-2) is likely and diagnostic tests for other causes of illness are negative. Re-testing should be considered in cases of suspected [...] Food and Drug Administration (FDA) cleared or approved. This is a modified version of an approved [...] of the Act. Fact Sheet for Healthcare Providers:https://www.[employer]/sites/default/f ramos/product/documents/F act_Sheet_HC_Providers_L bze_SDQZ-HmD-3.pdf Fact Sheet for Healthcare Patients:https://www.[employer].ZeroDesktop/sites/default/fi les/product/documents/Fa ct_Sheet_Patients_Lyra_S ARS-CoV-2.pdf Performing Laboratory:[facility] [place] [address] [facility])2019-10-06 07:44:00 Test Item Value Reference Range Interpretation Comments SARS-COV2/RT-PCR (test Negative Not Detected, Negative, code = 3191477) See external report for linked test SARS-COV-[address] [facility] (test code = 4823469) Negative result for this test determines that SARS-CoV-2 RNA was not present in the specimen above the Limit of Detection (LOD). However, Negative results do not preclude SARS-CoV-2 infection and should not be used as the sole basis for treatment or patient management decisions. Negative results mustbe combined with clinical observations, patient history, and epidemiological information. A false negative result may occur if a specimen is improperly collected, transported or handled. A false negative result should be considered if patient's recent exposures or clinical presentation indicate that COVID-19 (SARS-CoV-2) is likely and diagnostic tests for other causes of illness are negative. Re-testing should be considered in cases of suspected false negatives.The limit of detection for this assay is 800 copies/mL.This SARS CoV-2 test is a real-time RT-PCR test intended for the qualitative detection of nucleic acid from SARS-CoV-2 in a nasopharyngeal swab specimen collected from individuals susp ected of COVID-19 by their healthcare provider.This test has not been Food and Drug Administration (FDA) cleared or approved. This is a modified version of an approved [...] is revoked under Section 564(g) of the Act.Fact Sheet for Healthcare Providers:https://www.[employer].ZeroDesktop/sites/default/files/product/documents/Fact_Shee l_JN_Ejibuxhhw_Upqp_YFJB-UmM-2.pdfFact Sheet for Healthcare Patients:https://www.[employer].ZeroDesktop/sites/default/files/product/ documents/Lqxz_Udbnd_Vicbgxbe_Lvst_LBKV-QiK-1.pdfPerforming Laboratory:[facility], [place] [address]Thcnrojkh B surface [id number] 07:01:00 Test Item Value Reference Range Interpretation Comments Hep B S Ab (test code = <8.0 <8.0 mIU/mL 20350-1) MADAI (test code = MADAI) Crib Tender ID - PIAYA L Lab Interpretation (test Normal code = 95375-6) [facility]Hepatitis [facility] core antibody, [id number] 07:01:00 Test Item Value Reference Range Interpretation Comments Hep B Core Total Ab Nonreactive Nonreactive (test code = 90304-5) MADAI (test code = MADAI) Crib Tender ID - PIAYA L Lab Interpretation (test Normal code = 59123-0) [facility] A antibody, [id number] 07:01:00 Test Item Value Reference Range Interpretation Comments Hep A IgG (test code = Reactive Nonreactive A 56056-0) MADAI (test code = MADAI) Crib Tender ID - PIAYA L Lab Interpretation (test Abnormal code = 51015-1) [facility]HE[facility] CORE ANTIBODY, [id number] 07:01:00 Test Item Value Reference Range Interpretation Comments HEPATITIS B CORE TOTAL ANTIBODY Nonreactive Nonreactive (BEAKER) (test code = 497) Crib Tender ID - MIRI LHEPATITIS A ANTIBODY, [id number] 07:01:00 Test Item Value Reference Range Interpretation Comments HEPATITIS A IGG ANTIBODY (BEAKER) Reactive Nonreactive A (test code = 2797) Crib Tender ID - PIAYA LHEPATITIS B SURFACE [id number] 07:01:00 Test Item Value Reference Range Interpretation Comments HEPATITIS B SURFACE ANTIBODY < mIU/mL <8.0 (BEAKER) (test code = 647) Crib Tender ID - MIRI [id number] 06:20:00 Test Item Value Reference Range Interpretation Comments PARTIAL THROMBOPLASTIN TIME 30.7 seconds 22.5-36.0 (BEAKER) (test code = 760) [id number] 22:16:00 Test Item Value Reference Range Interpretation Comments PARTIAL THROMBOPLASTIN TIME 103.8 seconds 22.5-36.0 H (BEAKER) (test code = 760) Prior to initiating heparinRapid drug screen, [id number] 12:58:00 Test Item Value Reference Range Interpretation Comments Barbiturate Screen Negative Negative (test code = 17496-1) Benzodiazepine Screen Negative Negative (test code = 55952-0) Cocaine (Metab.) Negative Negative Screen (test code = 3397-7) Methadone Screen (test Negative Negative code = 97293-4) Opiate Screen (test Negative Negative code = 60185-2) Cannabinoid Screen Positive Negative A (test code = 19410-9) Amph/Methamph Screen Negative Negative (test code = 78686-7) Phencyclidine Screen Negative Negative (test code = 63458-6) pH, UA (test code = 7.0 5.0-8.0 5803-2) MADAI (test code = MADAI) DRUG CUTOFF CONC.Cocaine 300 ng/mL Cannabinoid 50 ng/mLBenzodiazepine 200 ng/mLBarbiturate 200 ng/mLPhencyclidine 25 ng/mLOpiate 300 ng/mLMethadone 300 ng/mLAmphetamine/ 1000 ng/mL Methamphetamine This assay provides an unconfirmed qualitative test result for the clinical management of patients in emergency situations. Chain of custody not maintained. Some ktno-kso-eicbrjf medications, as well as adulterants, may cause inaccurate results. Clinical correlation should be applied. A more comprehensive drug screen or confirmation of a detected drug may be performed upon request.Crib Tender ID - JENNYFER C Lab Interpretation Abnormal (test code = 16498-2) [facility] SCREEN, [id number] 12:58:00 Test Item Value Reference Range Interpretation Comments BARBITURATE URINE (BEAKER) (test Negative Negative code = 725) BENZODIAZEPINE SCREEN URINE (BEAKER) Negative Negative (test code = 726) COCAINE (METAB.) SCREEN (BEAKER) Negative Negative (test code = 1164) METHADONE SCREEN (BEAKER) (test code Negative Negative = 1436) OPIATE SCREEN URINE (BEAKER) (test Negative Negative code = 734) CANNABINOID SCREEN URINE (BEAKER) Positive Negative A (test code = 727) AMPH/METHAMPH SCREEN (BEAKER) (test Negative Negative code = 1438) PHENCYCLIDINE SCREEN URINE (BEAKER) Negative Negative (test code = 608) PH UA (BEAKER) (test code = 467) 7.0 5.0-8.0 DRUG CUTOFF CONC.Cocaine 300 ng/mL Cannabinoid 50 ng/mLBenzodiazepine 200 ng/mLBarbiturate 200 ng/mLPhencyclidine 25 ng/mLOpiate 300 ng/mLMethadone 300 ng/mLAmphetamine/ 1000 ng/mL MethamphetamineThis assay provides an unconfirmed qualitative test result for the clinical management of patients in emergency situations. Chain of custody not maintained. Some ojpj-jfk-daghruf medications, as well as adulterants, may cause inaccurate results. Clinical correlation should be applied. A more comprehensivedrug screen or confirmation of a detected drug may be performed upon request.Crib Tender ID - JENNYFER CUrinalysis w/Microscopic + Reflex to [id number] 12:44:00 Test Item Value Reference Range Interpretation Comments Color, UA (test code = Yellow 5778-6) Clarity, UA (test code = Clear 5767-9) Specific [place], UA (test 1.016 1.001-1.035 code = 5811-5) pH, UA (test code = 7.0 5.0-8.0 5803-2) Protein, UA (test code = Negative Negative 00141-1) Glucose, UA (test code = Negative Negative 365) Ketones, UA (test code = 60 mg/dL Negative A 2514-8) Bilirubin, UA (test code = Negative Negative 22146-2) Blood, UA (test code = Negative Negative 52417-6) Nitrite, UA (test code = Negative Negative 5802-4) Leukocytes, UA (test code Negative Negative = 5799-2) Urobilinogen, UA (test 2.0 mg/dL 0.2-1 H code = 30659-3) RBC, UA (test code = <1 /HPF 27837-7) WBC, UA (test code = 1 /HPF 5821-4) Mucus (test code = 8247-9) Rare Specimen Source (test code = 2795) MADAI (test code = MADAI) Crib Tender ID - [auto]Crib Tender ID - tech Lab Interpretation (test Abnormal code = 14873-5) [facility]/ REFLEX URINE [id number] 12:44:00 Test Item Value Reference Range Interpretation Comments COLOR (BEAKER) (test code = 470) Yellow CLARITY (BEAKER) (test code = 469) Clear SPECIFIC GRAVITY UA (BEAKER) (test 1.016 1.001-1.035 code = 468) PH UA (BEAKER) (test code = 467) 7.0 5.0-8.0 PROTEIN UA (BEAKER) (test code = Negative Negative 464) GLUCOSE UA (BEAKER) (test code = Negative Negative 365) KETONES UA (BEAKER) (test code = 60 mg/dL Negative A 371) BILIRUBIN UA (BEAKER) (test code = Negative Negative 462) BLOOD UA (BEAKER) (test code = 461) Negative Negative NITRITE UA (BEAKER) (test code = Negative Negative 465) LEUKOCYTE ESTERASE UA (BEAKER) Negative Negative (test code = 466) UROBILINOGEN UA (BEAKER) (test code 2.0 mg/dL 0.2-1.0 H = 463) RBC UA (BEAKER) (test code = 519) < /HPF WBC UA (BEAKER) (test code = 520) 1 /HPF MUCUS (BEAKER) (test code = 1574) Rare SOURCE(BEAKER) (test code = 2795) Crib Tender ID - [auto]Crib Tender ID - techHepatitis panel, [id number] 11:25:00 Test Item Value Reference Range Interpretation Comments Hep A IgM (test code = Nonreactive Nonreactive 28586-1) Hep B C IgM (test code = Nonreactive Nonreactive 67659-3) Hepatitis C Ab (test code Nonreactive Nonreactive = 66605-0) HBsAg Screen (test code = Nonreactive Nonreactive 5195-3) MADAI (test code = MADAI) Crib Tender ID - JENNYFER C Lab Interpretation (test Normal code = 72509-4) [facility]2 [id number] 11:25:00 Test Item Value Reference Range Interpretation Comments HIV-1 Antigen with HIV Nonreactive Nonreactive 1&2 Antibody (test code = 78166-1) MADAI (test code = MADAI) Crib Tender ID - JENNYFER C Lab Interpretation (test Normal code = 56655-6) [facility] [id number] 11:25:00 Test Item Value Reference Range Interpretation Comments HEPATITIS A IGM ANTIBODY (BEAKER) Nonreactive Nonreactive (test code = 498) HEPATITIS B CORE IGM ANTIBODY Nonreactive Nonreactive (BEAKER) (test code = 645) HEPATITIS C ANTIBODY (BEAKER) Nonreactive Nonreactive (test code = 367) HEPATITIS B SURFACE ANTIGEN (2) Nonreactive Nonreactive (BEAKER) (test code = 2585) Crib Tender ID - JENNYFER CHIV-1 ANTIGEN WITH HIV-1/2 [id number] 11:25:00 Test Item Value Reference Range Interpretation Comments HIV-1 ANTIGEN WITH HIV 1\\T\\2 Nonreactive Nonreactive ANTIBODY (2) (BEAKER) (test code = 2586) Crib Tender ID - JENNYFER [id number] 10:56:00 Test Item Value Reference Range Interpretation Comments PARTIAL THROMBOPLASTIN TIME 33.6 seconds 22.5-36.0 (BEAKER) (test code = 760) 6 hours after starting heparin infusion and as indicated per sliding scaleRAD, CHEST, 1 VIEW, NON [id number] 10:09:00Reason for exam:->tb exposureShould this be performed at the bedside?->YesFINAL REPORT History: TB exposure. FINDINGS: Abdomen, single view: Single AP view of the abdomen shows a normal appearing heart and mediastinum. No mediastinal or hilar adenopathy is present. Lungs are clear, free of edema, focal consolidation or visible effusions. No pneumothorax. Bones are unremarkable. IMPRESSION: 1. Negative for acute cardiopulmonary disease. Signed: Anamaria Erickson MDReport Verified Date/Time: 10/05/2019 10:09:02 Reading Location: [facility] XR chest 1 view portable / [id number] 10:09:00 Interface, External Ris In - 10/05/2019 10:11 AM CDTFINAL REPORT History: TB exposure. FINDINGS: Abdomen, single view: Single AP view of the abdomen shows a normal appearing heart and mediastinum. No mediastinal or hilar adenopathy is present. Lungs are clear, free of edema, focal consolidation or visible effusions. No pneumothorax. Bones are unremarkable. IMPRESSION: 1. Negative for acute cardiopulmonary disease. Signed: Anamaria Ericksoneport Verified Date/Time: 10/05/2019 10:09:02 Reading Location: [facility] C013T Transitional Reading Room [facility] 2019-10-05 08:56:00 Test Item Value Reference Range Interpretation Comments Protein, Total (test 6.2 6.0- 8.3 gm/dL code = 2885-2) Albumin (test code = 3.2 g/dL 3.5-5 L 34913-8) Alkaline Phosphatase 79 U/L 40-150 (test code = 6768-6) Total Bilirubin (test 1.1 mg/dL 0.2-1.2 code = 1975-2) Sodium (test code = 137 meq/L 077-937 7361-2) Potassium (test code = 3.2 meq/L 3.5-5.1 L 2823-3) Chloride (test code = 104 meq/L 98-107 2075-0) CO2 (test code = 24 meq/L 22-29 2028-9) BUN (test code = 6 mg/dL 7-21 L 3094-0) Creatinine (test code 0.69 mg/dL 0.57-1.25 = 2160-0) Glucose (test code = 88 mg/dL 70-105 2345-7) Calcium (test code = 7.8 mg/dL 8.4-10.2 L 28104-3) AST (test code = 27 U/L 5-34 1920-8) ALT (test code = 29 U/L 6-55 1742-6) EGFR (test code = 131 mL/min/1.73 [place] [address]-6) NOT ACCURATE CREATININE CLEARANCE IN PREDICTING GLOMERULAR FILTRATION RATE . ESTIMATED GFR I S NOT APPLICABLE FOR DIALYSIS PATIENTS. MADAI (test code = MADAI) Crib Tender ID - FEB C Lab Interpretation Abnormal (test code = 44724-3) [facility] [id number] 08:56:00 Test Item Value Reference Range Interpretation Comments TOTAL PROTEIN 6.2 gm/dL 6.0-8.3 (BEAKER) (test code = 770) ALBUMIN (BEAKER) 3.2 g/dL 3.5-5.0 L (test code = 1145) ALKALINE PHOSPHATASE 79 U/L 40-150 (BEAKER) (test code = 346) BILIRUBIN TOTAL 1.1 mg/dL 0.2-1.2 (BEAKER) (test code = 377) SODIUM (BEAKER) (test 137 meq/L 136-145 code = 381) POTASSIUM (BEAKER) 3.2 meq/L 3.5-5.1 L (test code = 379) CHLORIDE (BEAKER) 104 meq/L 98-107 (test code = 382) CO2 (BEAKER) (test 24 meq/L 22-29 code = 355) BLOOD UREA NITROGEN 6 mg/dL 7-21 L (BEAKER) (test code = 354) CREATININE (BEAKER) 0.69 mg/dL 0.57-1.25 (test code = 358) GLUCOSE RANDOM 88 mg/dL 70-105 (BEAKER) (test code = 652) CALCIUM (BEAKER) 7.8 mg/dL 8.4-10.2 L (test code = 697) AST (SGOT) (BEAKER) 27 U/L 5-34 (test code = 353) ALT (SGPT) (BEAKER) 29 U/L 6-55 (test code = 347) EGFR (BEAKER) (test 131 ESTIMATE D GFR IS code = 1092) mL/min/1.73 sq NOT ACCURA TE m CREATININE CLEARANCE IN PREDICTING GLOMERULAR FILTRATION RATE . ESTIMATED GFR I S NOT APPLICABLE FOR DIALYSIS PATIEN TS. Crib Tender ID - JENNYFER [id number] 08:45:00 Test Item Value Reference Range Interpretation Comments PARTIAL THROMBOPLASTIN TIME 32.7 seconds 22.5-36.0 (BEAKER) (test code = 760) Prior to initiating heparinPROTHROMBIN TIME/[id number] 08:44:00 Test Item Value Reference Range Interpretation Comments PROTIME (BEAKER) (test code = 18.7 seconds 11.9-14.2 H 759) INR (BEAKER) (test code = 370) 1.61 <=5.90 Effective 07/04/2018: PT Reference Range ChangeNew: 11.9-14.2 Previous: 11.7- 14.7RECOMMENDED COUMADIN/WARFARIN INR THERAPY RANGESSTANDARD DOSE: 2.0-3.0 Includes: PROPHYLAXIS for venous thrombosis, systemic embolization; TREATMENT for venous thrombosis and/or pulmonary embolus.HIGH RISK: Target INR is2.5-3.5 for patients wiht mechanical heart valves.Prior to initiating heparinCBC W/PLT COUNT & AUTO [id number] 08:36:00 Test Item Value Reference Range Interpretation Comments WHITE BLOOD CELL COUNT (BEAKER) 6.9 K/ L 3.5-10.5 (test code = 775) RED BLOOD CELL COUNT (BEAKER) 3.32 M/ L 4.63-6.08 L (test code = 761) HEMOGLOBIN (BEAKER) (test code = 10.8 GM/DL 13.7-17.5 L 410) HEMATOCRIT (BEAKER) (test code = 32.9 % 40.1-51.0 L 411) MEAN CORPUSCULAR VOLUME (BEAKER) 99.1 fL 79.0-92.2 H (test code = 753) MEAN CORPUSCULAR HEMOGLOBIN 32.5 pg 25.7-32.2 H (BEAKER) (test code = 751) MEAN CORPUSCULAR HEMOGLOBIN CONC 32.8 GM/DL 32.3-36.5 (BEAKER) (test code = 752) RED CELL DISTRIBUTION WIDTH 13.1 % 11.6-14.4 (BEAKER) (test code = 412) PLATELET COUNT (BEAKER) (test 247 K/CU MM 150-450 code = 756) MEAN PLATELET VOLUME (BEAKER) 9.9 fL 9.4-12.4 (test code = 754) NUCLEATED RED BLOOD CELLS 0 /100 WBC 0-0 (BEAKER) (test code = 413) NEUTROPHILS RELATIVE PERCENT 60 % (BEAKER) (test code = 429) LYMPHOCYTES RELATIVE PERCENT 24 % (BEAKER) (test code = 430) MONOCYTES RELATIVE PERCENT 13 % (BEAKER) (test code = 431) EOSINOPHILS RELATIVE PERCENT 2 % (BEAKER) (test code = 432) BASOPHILS RELATIVE PERCENT 0 % (BEAKER) (test code = 437) NEUTROPHILS ABSOLUTE COUNT 4.17 K/ L 1.78-5.38 (BEAKER) (test code = 670) LYMPHOCYTES ABSOLUTE COUNT 1.67 K/ L 1.32-3.57 (BEAKER) (test code = 414) MONOCYTES ABSOLUTE COUNT (BEAKER) 0.92 K/ L 0.30-0.82 H (test code = 415) EOSINOPHILS ABSOLUTE COUNT 0.14 K/ L 0.04-0.54 (BEAKER) (test code = 416) BASOPHILS ABSOLUTE COUNT (BEAKER) 0.02 K/ L 0.01-0.08 (test code = 417) IMMATURE GRANULOCYTES-RELATIVE 0 % 0-1 PERCENT (BEAKER) (test code = 2801)
[2019-10-18] MEDS ORDERED: MORPHINE 4 MG/ML SYR ONE ×2 (01:40→04:11)
[2019-10-18] MEDS ORDERED: ONDANSETRON 4 MG/2 ML VIAL ONE (01:40)
[2019-10-18 01:46] LABS: Absolute Lymphocytes (CBC) 1.8 K/uL (0.7-4.9); Basophils % 0.7 % (0-1.3); Hematocrit 35.5 % (39.6-49.0); Lymphocytes % 18.2 % (15.3-44.8); MPV 7.7 fL (7.6-11.3); RBC Red Blood Cell Count 3.72 M/uL (4.33-5.43)
[2019-10-18] MEDS ORDERED: FAMOTIDINE 20 MG/2 ML VIAL IV ONE (01:56)
[2019-10-18] MEDS ORDERED: NA CHLORIDE 0.9% 1,000 ML ONE (01:56)
[2019-10-18 01:59] LABS: Albumin 3.5 g/dL (3.4-5.0); Bilirubin Direct 0.1 mg/dL (0-0.2); Bilirubin Total 0.3 mg/dL (0.2-1.0); Potassium 3.7 mmol/L (3.5-5.1); Protein, Total 7.5 g/dL (6.4-8.2)
[2019-10-18 02:51] LABS: Barbiturates NEGATIVE (NEGATIVE); Benzodiazepines NEGATIVE (NEGATIVE); Cocaine NEGATIVE (NEGATIVE); METHAMPHETAM NEGATIVE (NEGATIVE); Methadone NEGATIVE (NEGATIVE); Opiates POSITIVE (NEGATIVE); Phencyclidine NEGATIVE (NEGATIVE); THC Cannibis POSITIVE (NEGATIVE)
[2019-10-18 02:52] LABS: Urine Blood NEGATIVE (NEG); Urine Glucose NEGATIVE (NEG); Urine Protein NEGATIVE (NEG); Urine pH 7.5 (5.0-7.0)
--- NOTE | 2019-10-18 03:57 | EDPHYS ---
Physician Documentation [facility] Name: Osei Whitehead Age: 34 yrs Sex: Male : 1985 Arrival Date: 10/18/2019 Time: 00:50 Bed 18 Private MD: ED Physician Braulio Godoy HPI: 10/17 01:47 This 34 yrs old Male presents to ER via Ambulatory with complaints of mh7 Abdominal Pain. 01:47 The patient presents with abdominal pain in the upper abdomen. mh7 01:48 Onset: The symptoms/episode began/occurred 2 week(s) ago, and became worse yesterday. mh7 The symptoms do not radiate. Associated signs and symptoms: Pertinent positives: nausea and vomiting, Pertinent negatives: anorexia, blood in stools, chest pain, constipation, diarrhea, dysuria, fever, headache, hematuria, palpitations, shortness of breath, testicular pain, vomiting blood. The symptoms are described as intermittent, vague, waxing/waning. Modifying factors: The symptoms are alleviated by nothing, the symptoms are aggravated by food, touching the area. Severity of pain: At its worst the pain was moderate today, in the emergency department the pain is unchanged. The patient has been recently seen at the [facility] Emergency Department, a couple of weeks ago. Historical: - Allergies: 00:53 No Known Allergies; sg - Home Meds: 00:53 None [Active]; sg - PMHx: 00:53 None; sg - PSHx: 00:52 ankle surgery; sg - Immunization history:: Adult Immunizations up to date. - Social history:: Smoking status: Patient denies any tobacco usage or history of. ROS: 01:48 Constitutional: Negative for fever, chills, and weight loss, Eyes: Negative for injury, mh7 pain, redness, and discharge, ENT: Negative for injury, pain, and discharge, Neck: Negative for injury, pain, and swelling, Cardiovascular: Negative for chest pain, palpitations, and edema, Respiratory: Negative for shortness of breath, cough, wheezing, and pleuritic chest pain, Back: Negative for injury and pain, : Negative for injury, bleeding, discharge, and swelling, MS/Extremity: Negative for injury and deformity, Skin: Negative for injury, rash, and discoloration, Neuro: Negative for headache, weakness, numbness, tingling, and seizure, Psych: Negative for depression, anxiety, suicide ideation, homicidal ideation, and hallucinations, Allergy/Immunology: Negative for hives, rash, and allergies, Endocrine: Negative for neck swelling, polydipsia, polyuria, polyphagia, and marked weight changes, Hematologic/Lymphatic: Negative for swollen nodes, abnormal bleeding, and unusual bruising. Exam: 01:48 Head/Face: Normocephalic, atraumatic. Eyes: Pupils equal round and reactive to light, mh7 extra-ocular motions intact. Lids and lashes normal. Conjunctiva and sclera are non-icteric and not injected. Cornea within normal limits. Periorbital areas with no swelling, redness, or edema. Neck: Trachea midline, no thyromegaly or masses palpated, and no cervical lymphadenopathy. Supple, full range of motion without nuchal rigidity, or vertebral point tenderness. No Meningismus. Chest/axilla: Normal chest wall appearance and motion. Nontender with no deformity. No lesions are appreciated. Cardiovascular: Regular rate and rhythm with a normal S1 and S2. No gallops, murmurs, or rubs. Normal PMI, no JVD. No pulse deficits. Respiratory: Lungs have equal breath sounds bilaterally, clear to auscultation and percussion. No rales, rhonchi or wheezes noted. No increased work of breathing, no retractions or nasal flaring. 01:48 Skin: Warm, dry with normal turgor. Normal color with no rashes, no lesions, and no evidence of cellulitis. MS/ Extremity: Pulses equal, no cyanosis. Neurovascular intact. Full, normal range of motion. Neuro: Awake and alert, GCS 15, oriented to person, place, time, and situation. Cranial nerves II-XII grossly intact. Motor strength 5/5 in all extremities. Sensory grossly intact. Cerebellar exam normal. Normal gait. Psych: Awake, alert, with orientation to person, place and time. Behavior, mood, and affect are within normal limits. 01:48 Constitutional: The patient appears in no acute distress, alert, awake, uncomfortable. 01:48 Abdomen/GI: Inspection: abdomen appears normal, Bowel sounds: normal, in all quadrants, Palpation: moderate abdominal tenderness, in the epigastric area, Rectal exam: the exam is deferred, because of patient request, Indicators: McBurney's point is not tender, Delvalle's sign is negative, Rovsing's sign is negative, Obturator sign is negative, Psoas sign is negative, Liver: no appreciated palpable abnormalities, Hernia: not appreciated. 01:48 Back: pain, is absent, ROM is normal, normal spinal alignment noted, CVA tenderness, that is mild, is noted on the right, muscle spasm, is not present. Vital Signs: 01:02 BP 136 / 94; Pulse 72; Resp 18; Temp 97.5; Pulse Ox 100% on R/A; Weight 92.99 kg; ar5 Height 5 ft. 8 in. (172.72 cm); Pain 10/10; 02:00 BP 125 / 61; Pulse 63; Resp 18; Pulse Ox 100% on R/A; mg2 03:25 BP 152 / 63; Pulse 62; Resp 18; Pulse Ox 100% on R/A; mg2 04:03 BP 133 / 84; Pulse 65; Resp 18; Pulse Ox 100% on R/A; mg2 05:43 BP 125 / 82; Pulse 56; Resp 18; Pulse Ox 100% on R/A; mg2 01:02 Body Mass Index 31.17 (92.99 kg, 172.72 cm) ar5 MDM: 01:34 Patient medically screened. mh7 03:52 Differential diagnosis: bowel obstruction, cholecystitis, Cholelithiasis, mh7 diverticulitis, gastritis, gastroesophageal reflux disease, Irritable bowel syndrome, non-specific abd pain, pancreatitis, Peptic Ulcer Disease, Perf. Duodenal Ulcer, Perf. Gastric Ulcer, urinary tract infection. Data reviewed: vital signs, nurses notes, old medical records, lab test result(s), amylase and lipase, CBC, electrolytes, urinalysis, radiologic studies, CT scan. Data interpreted: Pulse oximetry: on room air is 100 %. Interpretation: normal. Counseling: I had a detailed discussion with the patient and/or guardian regarding: the historical points, exam findings, and any diagnostic results supporting the discharge/admit diagnosis, the presence of at least one elevated blood pressure reading (>120/80) during this emergency department visit, lab results, radiology results. Response to treatment: the patient's symptoms have resolved after treatment, the patient's blood pressure is in an acceptable range, mental status has returned to baseline, the patient no longer shows bradycardia, the patient is not short of breath, the patient is not tachycardic, the patient's pain is gone, the patient's temperature has normalized. 03:55 Refusal of service: The patient/guardian displays adequate decision making capability [facility] and despite a detailed discussion of alternatives, benefits, risks, and consequences refuses: Admission to the hospital for further work-up and treatment. 10/17 01:11 Order name: Basic Metabolic Panel; Complete Time: 02:21 [facility] [place] 10/17 01:11 Order name: CBC with Diff; Complete Time: 02:21 [facility] [place] 10/17 01:11 Order name: Hepatic Function; Complete Time: 02: [facility] [place] 10/17 01:11 Order name: Lipase; Complete Time: 02: [facility] [place] 10/17 01:35 Order name: UDS; Complete Time: 03:13 [facility] 10/17 01:35 Order name: ETOH Level; Complete Time: 02:21 [facility] 10/17 01:35 Order name: CT Abd/Pelvis - IV Contrast Only [facility] 10/17 02:03 Order name: CREATININE WHOLE BLOOD; Complete Time: 02:21 [facility] 10/17 02:28 Order name: Urine Dipstick--Ancillary (enter results) 3 10/17 02:28 Order name: Urine Dipstick-Ancillary; Complete Time: 03:13 [facility] 10/17 04:58 Order name: Protime (+inr); Complete Time: 06:26 [facility] 10/17 04:58 Order name: Ptt, Activated; Complete Time: 06:26 [facility] 10/17 01:11 Order name: IV Saline Lock; Complete Time: 01:17 [facility] [place] [place] 10/17 01:11 Order name: Labs collected and sent; Complete Time: 01:17 [facility] [place] [place] 10/17 01:35 Order name: Urine Dipstick-Ancillary (obtain specimen); Complete Time: 02:21 [facility] 10/17 03:26 Order name: PO challenge; Complete Time: 03:26 mg2 Administered Medications: 01:30 Drug: morphine 4 mg Route: IVP; Site: right antecubital; mg2 03:25 Follow up: Response: No adverse reaction; Marked relief of symptoms; RASS: Alert and mg2 Calm (0) 01:30 Drug: Zofran (Ondansetron) 4 mg Route: IVP; Site: right antecubital; mg2 03:24 Follow up: Response: No adverse reaction; Marked relief of symptoms mg2 01:43 Drug: Pepcid 20 mg Route: IVP; Site: right antecubital; mg2 03:25 Follow up: Response: No adverse reaction mg2 01:43 Drug: NS 0.9% 1000 ml Route: IV; Rate: 1000 ml; Site: right antecubital; mg2 03:25 Follow up: Response: No adverse reaction; IV Status: Completed infusion; IV Intake: mg2 1000ml 04:03 Drug: morphine 4 mg Route: IVP; Site: right antecubital; mg2 05:43 Follow up: Response: No adverse reaction; Pain is unchanged, physician notified; RASS: mg2 Alert and Calm (0) 05:04 Not Given (Physician Discretion): GI Cocktail with - (Maalox Suspension 30 ml, mg2 Lidocaine Liquid 2 % 20 ml, Phenobarbital-Belladonna 10 ml) PO once 05:05 Drug: GI Cocktail without - (Maalox Suspension 30 ml, Lidocaine Liquid 2 % 15 mg2 ml) Route: PO; 05:43 Follow up: Response: No adverse reaction mg2 Disposition: 10/18/19 05:59 Discharged to Home. Impression: Chronic Portal Vein Thrombosis, Chronic Pancreatitis. - Condition is Stable. - Discharge Instructions: Chronic Pancreatitis. - Prescriptions for Zofran ODT 4 mg Oral tablet,disintegrating - place 1 tablet by TRANSLINGUAL route every 8 hours As needed; 10 tablet. Tylenol- Codeine #3 300-30 mg Oral Tablet - take 2 tablet by ORAL route every 6 hours As needed; 30 tablet. - Medication Reconciliation Form, Thank You Letter, Antibiotic Education, Prescription Opioid Use form. - Follow up: Private Physician; When: 1 - 2 days; Reason: Worsening of condition, Recheck today's complaints, Continuance of care, Re-evaluation by your physician. Follow up: Donald Jason MD; When: 1 - 2 days; Reason: Worsening of condition, Recheck today's complaints. - Problem is chronic. - Symptoms have improved. Signatures: Dispatcher [employer] EDMS Perez Gilbert RN RN Quinn Grigsby RN RN mg2 Braulio Godoy MD MD 7 Corrections: (The following items were deleted from the chart) 04:43 03:56 10/18/2019 03:56 Discharged to Home. Impression: Chronic Portal Vein Thrombosis; mh7 Chronic Pancreatitis. Condition is Stable. Forms are Medication Reconciliation Form, Thank You Letter, Antibiotic Education, Prescription Opioid Use. Follow up: Private Physician; When: 2 - 3 days; Reason: Worsening of condition, Recheck today's complaints, Continuance of care, Re-evaluation by your physician. Follow up: Donald Jason; When: 2 - 3 days; Reason: Worsening of condition, Recheck today's complaints. Problem is an ongoing problem. Symptoms have improved. 7 06:03 05:59 10/18/2019 05:59 Discharged to Home. Impression: Chronic Portal Vein Thrombosis; mg2 Chronic Pancreatitis. Condition is Stable. Prescriptions for Zofran ODT 4 mg Oral tablet,disintegrating - place 1 tablet by TRANSLINGUAL route every 8 hours As needed; 10 tablet, Colace 100 mg Oral Tablet - take 1 tablet by ORAL route every 12 hours; 14 tablet, Tylenol-Codeine #3 300-30 mg Oral Tablet - take 2 tablets by ORAL route every 6 hours As needed; 20 tablet. and Forms are Medication Reconciliation Form, Thank You Letter, Antibiotic Education, Prescription Opioid Use. Follow up: Private Physician; When: 1 - 2 days; Reason: Worsening of condition, Recheck today's complaints, Continuance of care, Re-evaluation by your physician. Follow up: Donald Jason; When: 1 - 2 days; Reason: Worsening of condition, Recheck today's complaints. Problem is chronic. Symptoms have improved. 7
--- NOTE | 2019-10-18 03:57 | ER ---
Nurse's Notes [facility] Name: Osei Whitehead Age: 34 yrs Sex: Male : 1985 Arrival Date: 10/18/2019 Time: 00:50 Bed 18 Private MD: Diagnosis: Chronic Portal Vein Thrombosis;Chronic Pancreatitis Presentation: 10/17 00:52 Chief complaint: Patient states: Abdominal pain, also having nausea as well. sg Coronavirus screen: Client denies travel out of the [place] in the last 14 days. At this time, the client does not indicate any symptoms associated with coronavirus-19. Ebola Screen: Patient negative for fever greater than or equal to 101.5 degrees Fahrenheit, and additional compatible Ebola Virus Disease symptoms Patient denies exposure to infectious person. Patient denies travel to an Ebola-affected area in the 21 days before illness onset. No symptoms or risks identified at this time. Initial Sepsis Screen: Does the patient meet any 2 criteria? No. Patient's initial sepsis screen is negative. Does the patient have a suspected source of infection? No. Patient's initial sepsis screen is negative. Risk Assessment: Do you want to hurt yourself or someone else? Patient reports no desire to harm self or others. Onset of symptoms was October 18, 2019. Care prior to arrival: None. Transition of care: patient was not received from another setting of care. 00:52 Acuity: NEFTALI 3 sg 00:52 Method Of Arrival: Ambulatory sg Historical: - Allergies: 00:53 No Known Allergies; sg - Home Meds: 00:53 None [Active]; sg - PMHx: 00:53 None; sg - PSHx: 00:52 ankle surgery; sg - Immunization history:: Adult Immunizations up to date. - Social history:: Smoking status: Patient denies any tobacco usage or history of. Screenin:12 Abuse screen: Denies threats or abuse. Denies injuries from another. Nutritional mg2 screening: No deficits noted. Tuberculosis screening: No symptoms or risk factors identified. Fall Risk IV access (20 points). Assessment: 01:11 General: Appears uncomfortable, Behavior is calm, cooperative. Pain: Complains of pain mg2 in abdomen. Neuro: Level of Consciousness is awake, alert, obeys commands, Oriented to person, place, time, situation. Cardiovascular: Capillary refill < 3 seconds Patient's skin is warm and dry. Respiratory: Airway is patent Respiratory effort is even, unlabored, Respiratory pattern is regular, symmetrical. GI: Bowel sounds present X 4 quads. Abdomen is tender to palpation Reports upper abdominal pain, nausea, vomiting, since 2 hours ago. : No signs and/or symptoms were reported regarding the genitourinary system. EENT: No signs and/or symptoms were reported regarding the EENT system. Derm: Skin is intact, is healthy with good turgor, Skin is pink, warm \T\ dry. normal. Musculoskeletal: Circulation, motion, and sensation intact. Capillary refill < 3 seconds. 02:09 Reassessment: patient sent to CT scan via wheelchair. mg2 03:23 Reassessment: Patient appears in no apparent distress at this time. Patient states mg2 feeling better. Patient states symptoms have improved. 03:26 Reassessment: po challenge tolerated. mg2 04:03 Reassessment: pain is back. provider informed and patient medicated. to dc after 30 mg2 minutes. 04:06 Reassessment: contacted-[phone]. mg2 05:42 Reassessment: patient still in pain. provider hold the dc and trying to admit the mg2 patient. waiting for disposition. already contacted and she is waiting in the car. 06:02 Reassessment: Patient denies pain at this time. Patient states feeling better. Patient mg2 states symptoms have improved. Vital Signs: 01:02 BP 136 / 94; Pulse 72; Resp 18; Temp 97.5; Pulse Ox 100% on R/A; Weight 92.99 kg; ar5 Height 5 ft. 8 in. (172.72 cm); Pain 10/10; 02:00 BP 125 / 61; Pulse 63; Resp 18; Pulse Ox 100% on R/A; mg2 03:25 BP 152 / 63; Pulse 62; Resp 18; Pulse Ox 100% on R/A; mg2 04:03 BP 133 / 84; Pulse 65; Resp 18; Pulse Ox 100% on R/A; mg2 05:43 BP 125 / 82; Pulse 56; Resp 18; Pulse Ox 100% on R/A; mg2 01:02 Body Mass Index 31.17 (92.99 kg, 172.72 cm) ar5 ED Course: 00:50 Patient arrived in ED. ag3 00:52 Arm band placed on. sg 00:55 Triage completed. sg 01:11 Quinn Grigsby, RN is Primary Nurse. mg2 01:12 Patient has correct armband on for positive identification. mg2 01:12 No provider procedures requiring assistance completed. mg2 01:17 Braulio Godoy MD is Attending Physician. mh7 01:30 Inserted saline lock: 20 gauge in right antecubital area, using aseptic technique. mg2 Blood collected. 02:21 CT Abd/Pelvis - IV Contrast Only In Process Unspecified. EDMS 03:55 Donald Jason MD is Referral Physician. mh7 05:58 Donald Jason MD is Referral Physician. mh7 06:02 IV discontinued, intact, bleeding controlled, No redness/swelling at site. Pressure mg2 dressing applied. Administered Medications: 01:30 Drug: morphine 4 mg Route: IVP; Site: right antecubital; mg2 03:25 Follow up: Response: No adverse reaction; Marked relief of symptoms; RASS: Alert and mg2 Calm (0) 01:30 Drug: Zofran (Ondansetron) 4 mg Route: IVP; Site: right antecubital; mg2 03:24 Follow up: Response: No adverse reaction; Marked relief of symptoms mg2 01:43 Drug: Pepcid 20 mg Route: IVP; Site: right antecubital; mg2 03:25 Follow up: Response: No adverse reaction mg2 01:43 Drug: NS 0.9% 1000 ml Route: IV; Rate: 1000 ml; Site: right antecubital; mg2 03:25 Follow up: Response: No adverse reaction; IV Status: Completed infusion; IV Intake: mg2 1000ml 04:03 Drug: morphine 4 mg Route: IVP; Site: right antecubital; mg2 05:43 Follow up: Response: No adverse reaction; Pain is unchanged, physician notified; RASS: mg2 Alert and Calm (0) 05:04 Not Given (Physician Discretion): GI Cocktail with - (Maalox Suspension 30 ml, mg2 Lidocaine Liquid 2 % 20 ml, Phenobarbital-Belladonna 10 ml) PO once 05:05 Drug: GI Cocktail without - (Maalox Suspension 30 ml, Lidocaine Liquid 2 % 15 mg2 ml) Route: PO; 05:43 Follow up: Response: No adverse reaction mg2 Intake: 03:25 IV: 1000ml; Total: 1000ml. mg2 Outcome: 03:56 Discharge ordered by . tuan 05:59 Discharge ordered by MD. dickerson 06:03 Discharged to home via wheelchair, with family. mg2 06:03 Condition: stable 06:03 Discharge instructions given to patient, Instructed on discharge instructions, follow up and referral plans. medication usage, Demonstrated understanding of instructions, follow-up care, medications, Prescriptions given X 3. 06:03 Patient left the ED. mg2 Signatures: Dispatcher [employer] EDMS Perez Gilbert RN RN Quinn Grigsby RN RN mg2 Lauren Shah ag3 Dalila Mott ar5 Braulio Godoy MD MD 7 Corrections: (The following items were deleted from the chart) 05:43 04:43 Reassessment: mg2 mg2
[2019-10-18] MEDS ORDERED: MAGNE/ALUM HYDROXD 30 ML UCUP ONE (05:13)
[2019-10-18] MEDS ORDERED: LIDOCAINE VISCOUS 2% SOLN 15 ML UDC ONE (05:14)
[2019-10-18 05:45] LABS: Protime INR 2.59
[2019-10-18 06:37] VITALS: TEMP 97.5; O2SAT 100
[2019-10-18 06:40] VITALS: BP 125/82
--- NOTE | 2019-10-18 11:29 | RAD REPORT ---
EXAM DESCRIPTION: CT Abdomen and Pelvis With Intravenous Contrast CLINICAL HISTORY: The patient is 34 years old and is Male; ABD PAIN TECHNIQUE: Axial computed tomography images of the abdomen and pelvis with intravenous contrast. S agittal and coronal reformatted images were created and reviewed. This CT exam was performed using one or more of the following dose reduction techniques: automated exposure control, adjustment of t he mA and/or kV according to patient size, and/or use of iterative reconstruction technique. COMPARISON: CT of the abdomen and pelvis October 05, 2019 FINDINGS: LUNG BASES: Unremarkable. No mass. No consolidation. ABDOMEN: LIVER: The liver is enlarged and diffusely fatty. Areas of geographic fatty attenuation is noted . 2 subtle areas of increased attenuation within the right hepatic lobe are present. No change from prior exam. Given the appearance, these are likely hemangiomas. GALLBLADDER AND BILE DUCTS: No calcified stones. No ductal dilation. PANCREAS: No ductal dilation. No mass. SPLEEN: Unremarkable. ADRENALS: Unremarkable. No mass. KIDNEYS AND URETERS: Unremarkable. The kidneys enhance symmetrically. No obstructing renal or ur eteral calculus is seen. No hydronephrosis or hydroureter. No perinephric fluid or stranding. STOMACH AND BOWEL: The stomach is distended with food contents. The small bowel is normal in horace iber. A few small bowel loops within the left upper quadrant are fluid-filled. A moderate amount st ool is present throughout colon. There is no mucosal thickening or evidence of bowel obstruction. PELVIS: APPENDIX: The appendix is normal in caliber without surrounding inflammation. BLADDER: Unremarkable. No mass. REPRODUCTIVE: Unremarkable as visualized. ABDOMEN and PELVIS: INTRAPERITONEAL SPACE: Unremarkable. No free air. No significant fluid collection. BONES/JOINTS: No acute fracture. SOFT TISSUES: The soft tissues are normal. VASCULATURE: Chronic thrombus formation within the portal vein extending into the superior mesen teric vein and tributaries is noted. Minimal surrounding inflammatory stranding is noted. The overall appearance is improved from prior exam. No abdominal aortic aneurysm. LYMPH NODES: Unremarkable. No enlarged lymph nodes. IMPRESSION: 1. Chronic portal vein thrombosis extending into the superior mesenteric vein. Decreas ed surrounding inflammatory stranding is noted. 2. No bowel obstruction. Normal appendix. Electronically signed by: Suzanna Almeida MD 10/18/2019 2:40 AM CDT Due to temporary technical issues with the PACS/Fluency reporting system, reports are being signed by the in house radiologist without review as a courtesy to ensure prompt reporting. The interpreting r adiologist is fully responsible for the content of the report.
== END 2019-10-18 06:03 | disposition home or self-care (01) ==
LOC: ER 00:47
DX: I81 Portal vein thrombosis (principal); K86.1 Other chronic pancreatitis
CPT/HCPCS: 36415; 74177; 80048; 80076; 80307; 80320; 81003; 82565; 83690; 85025; 85610; 85730; 96361; 96374; 96375; 99284; J2405; J7030; Q9967